=== PATIENT | male | born 1960 | race Caucasian/White ===

== ENCOUNTER 2017-11-29 15:18 | Emergency (ER) | payer OTHER ==
[~2017-11-29] VITALS: Ht 177.8 cm; Wt 86.2 kg
[~2017-11-29 15:18] MED LIST: AMLO10 PO; AMOCLA875 PO; ASPI81CH PO; Adult Low Dose81 MG; DULO60; GLIP5ER PO; Glucotrol Xl5 MG PO; HYDACE5 PO; IBUP400 PO; LEVSOD75 PO; LORA1 PO; LOSHYD100 PO; OXYACE5T PO; Pantoprazole So40 MG PO; Tylenol325 MG PO; VALS80; VENL25 PO
[2017-11-29] MEDS ORDERED: ALBU90OI INH (16:18)
== END 2017-11-29 17:14 | disposition home or self-care (01) ==
LOC: ER 15:18
DX: J40 Bronchitis, not specified as acute or chronic (principal); F12.20 Cannabis dependence, uncomplicated; F17.210 Nicotine dependence, cigarettes, uncomplicated; E11.9 Type 2 diabetes mellitus without complications; I10 Essential (primary) hypertension; Z79.899 Other long term (current) drug therapy; Z79.84 Long term (current) use of oral hypoglycemic drugs; Z79.82 Long term (current) use of aspirin
CPT/HCPCS: 94640; 99283

== ENCOUNTER 2018-05-19 18:15 | Observation (INO) | payer SELFPAY ==
[~2018-05-19] VITALS: Ht 182.9 cm; Wt 82.5 kg
[~2018-05-19 18:15] MED LIST changes: +ALBU90OI INH; +CEPH500 PO; +CHLO25 PO; +FOLI1 PO; +ONDA4ODT PO; +THIA100 PO
[2018-05-19] MEDS ORDERED: VITAMIN B-1100 MG PO (18:33)
[2018-05-19 19:16] LABS: Source, Urine Voided
[2018-05-19 19:23] LABS: Appearance, Urine Clear (Clear); BASOPHILS ABSOLUTE AUTO 0.17 K/mm3 (0.00-0.23); BASOPHILS PERCENT AUTO 2 % (0-2); Bilirubin, Urine Neg (Neg); Blood, Urine Neg (Neg); Color, Urine Yellow (P-Yellow); EOSINOPHILS ABSOLUTE AUTO 0.56 K/mm3 (0.00-0.68); EOSINOPHILS PERCENT AUTO 8 % (0-6); Glucose Qualitative, Urine Neg (Neg); Hematocrit 36.5 % (37.0-53.0); Hemoglobin 11.8 g/dL (13.5-17.5); IMMATURE GRAN PERCENT AUTO 3 % (0-1); Ketones, Urine Neg (Neg); LYMPHOCYTES ABSOLUTE AUTO 2.48 K/mm3 (0.84-5.20); LYMPHOCYTES PERCENT AUTO 34 % (21-46); Leukocyte Esterase, Urine Neg (Neg); MONOCYTES ABSOLUTE AUTO 0.64 K/mm3 (0.16-1.47); MONOCYTES PERCENT AUTO 9 % (4-13); Mean Corpuscular HGB 30.6 pg (26.0-34.0); Mean Corpuscular HGB Conc 32.3 g/dL (31.5-36.5); Mean Platelet Volume 9.3 fL (9.1-12.4); NEUTROPHILS ABSOLUTE AUTO 3.18 K/mm3 (1.96-9.15); NEUTROPHILS PERCENT AUTO 44 % (41-73); NRBC ABSOLUTE 0.04 K/mm3 (0.00-0.02); NRBC Auto 0.6 /100 WBC (0.0-0.2); Nitrite, Urine Neg (Neg); Platelet Count 511 K/mm3 (150-400); Protein, Urine Neg (Neg); RDW Coefficient Variation 14.7 % (11.7-14.2); RDW Standard Deviation 50.2 fL (35.1-46.3); Red Blood Cell Count 3.85 M/mm3 (4.30-5.90); Urobilinogen, Urine NORM (Normal); White Blood Cell Count 7.23 K/mm3 (4.00-11.30)
[2018-05-19 19:30] LABS: Mean Corpuscular Volume 95 fL (80-100)
[2018-05-19 19:37] LABS: U Amphetamine Screen Not Detected; U Barbituate Screen Not Detected; U Benzodiazapine Screen DETECTED; U Buprenorphine Screen Not Detected; U Cannabinoids Screen DETECTED; U Cocaine Screen Not Detected; U Methadone Screen Not Detected; U Methamphetamine Screen Not Detected; U Opiates Screen Not Detected; U Oxycodone Screen Not Detected; U Phencyclidine Screen Not Detected; U Propoxyphene Screen Not Detected
[2018-05-19 19:48] LABS: Alanine Aminotransfer (ALT/SGP 72 U/L (12-78); Albumin, Blood 3.4 g/dL (3.4-5.0); Albumin/Globulin Ratio 0.8 (0.8-1.8); Alk Phos 81 U/L (50-136); Anion Gap 7 mmol/L (6-16); Aspartate Aminotrans (AST/SGOT 63 U/L (12-37); Bilirubin, Total 0.2 mg/dL (0.1-1.0); Blood Urea Nitrogen 11 mg/dL (8-24); Bun/Creatinine Ratio 11.6 (12.0-20.0); CO2, Blood 33 mmol/L (21-32); Calcium, Blood 8.3 mg/dL (8.5-10.1); Chloride, Blood 100 mmol/L (98-108); Creatinine, Blood 0.95 mg/dL (0.60-1.20); Glomerular Filtration Rate >60 (60-); Glucose, Blood 141 mg/dL (70-99); Potassium, Blood 3.9 mmol/L (3.5-5.5); Salicylate 3.8 mg/dL (2.8-20.0); Sodium, Blood 140 mmol/L (136-145); Total Protein, Blood 7.4 g/dL (6.4-8.2)
[2018-05-19 19:59] LABS: Acetaminophen, Random <2.0 ug/mL (10.0-30.0); Ethanol (Alcohol), Blood, Med 355 mg/dL
== END 2018-05-20 10:00 | disposition home or self-care (01) ==
LOC: ER 18:15 → EOR 18:16
PROVIDERS: Emergency Medicine
DX: R45.851 Suicidal ideations (principal); F32.9 Major depressive disorder, single episode, unspecified; F10.129 Alcohol abuse with intoxication, unspecified; E11.9 Type 2 diabetes mellitus without complications; I10 Essential (primary) hypertension; E78.00 Pure hypercholesterolemia, unspecified; Z79.899 Other long term (current) drug therapy; Z79.84 Long term (current) use of oral hypoglycemic drugs; Y90.8 Blood alcohol level of 240 mg/100 ml or more
CPT/HCPCS: 36415; 80053; 81003; 84443; 85025; 99285; G0378; G0480

== ENCOUNTER 2018-11-21 22:31 | Emergency (ER) | payer SELFPAY ==
[~2018-11-21] VITALS: Ht 180.3 cm; Wt 83.9 kg
[~2018-11-21 22:31] MED LIST changes: +LOSA50 PO; +ROSU10TA PO; +VITAMIN B-1100 MG PO
[2018-11-21 22:53] LABS: BASOPHILS ABSOLUTE AUTO 0.15 K/mm3 (0.00-0.23); BASOPHILS PERCENT AUTO 1 % (0-2); EOSINOPHILS ABSOLUTE AUTO 1.03 K/mm3 (0.00-0.68); EOSINOPHILS PERCENT AUTO 8 % (0-6); Hematocrit 37.9 % (37.0-53.0); Hemoglobin 12.1 g/dL (13.5-17.5); IMMATURE GRAN ABSOLUTE AUTO 0.43 K/mm3 (0.00-0.10); IMMATURE GRAN PERCENT AUTO 3 % (0-1); LYMPHOCYTES PERCENT AUTO 14 % (21-46); MONOCYTES ABSOLUTE AUTO 1.31 K/mm3 (0.16-1.47); MONOCYTES PERCENT AUTO 10 % (4-13); Mean Corpuscular HGB 29.2 pg (26.0-34.0); Mean Corpuscular HGB Conc 31.9 g/dL (31.5-36.5); Mean Platelet Volume 9.2 fL (9.1-12.4); NEUTROPHILS PERCENT AUTO 64 % (41-73); NRBC ABSOLUTE 0.05 K/mm3 (0.00-0.02); NRBC Auto 0.4 /100 WBC (0.0-0.2); Platelet Count 415 K/mm3 (150-400); RDW Standard Deviation 46.8 fL (35.1-46.3); Red Blood Cell Count 4.14 M/mm3 (4.30-5.90); White Blood Cell Count 13.12 K/mm3 (4.00-11.30)
[2018-11-21 22:58] LABS: Mean Corpuscular Volume 92 fL (80-100)
[2018-11-21 23:10] LABS: Alanine Aminotransfer (ALT/SGP 76 U/L (12-78); Albumin, Blood 3.4 g/dL (3.4-5.0); Albumin/Globulin Ratio 0.9 (0.8-1.8); Alk Phos 86 U/L (50-136); Anion Gap 6 mmol/L (6-16); Aspartate Aminotrans (AST/SGOT 53 U/L (12-37); Bilirubin, Total 0.3 mg/dL (0.1-1.0); Blood Urea Nitrogen 9 mg/dL (8-24); Bun/Creatinine Ratio 12.9 (12.0-20.0); CO2, Blood 27 mmol/L (21-32); Calcium, Blood 9.2 mg/dL (8.5-10.1); Chloride, Blood 101 mmol/L (98-108); Globulin, Blood 3.9 g/dL (2.2-4.0); Glomerular Filtration Rate >60 (60-); Glucose, Blood 138 mg/dL (70-99); Potassium, Blood 4.3 mmol/L (3.5-5.5); Sodium, Blood 134 mmol/L (136-145); Total Protein, Blood 7.3 g/dL (6.4-8.2)
[2018-11-22] MEDS ORDERED: Prednisone20 MG PO (03:17)
== END 2018-11-22 03:30 | disposition home or self-care (01) ==
LOC: ER 22:31
PROVIDERS: Emergency Medicine
DX: J44.1 Chronic obstructive pulmonary disease with (acute) exacerbation (principal); E11.9 Type 2 diabetes mellitus without complications; I10 Essential (primary) hypertension; E03.9 Hypothyroidism, unspecified; Z79.82 Long term (current) use of aspirin; Z79.899 Other long term (current) drug therapy; Z87.891 Personal history of nicotine dependence
CPT/HCPCS: 36415; 71046; 71260; 80053; 85025; 85379; 93005; 93010; 94640; 96360-59; 96361-59; 99285-25; J7030; Q9967

== ENCOUNTER 2019-02-14 20:05 | Inpatient (IN) | payer OTHER ==
[~2019-02-14] VITALS: Ht 177.8 cm; Wt 97.6 kg
[~2019-02-14 20:05] MED LIST changes: -Adult Low Dose81 MG; -Glucotrol Xl5 MG PO; -LEVSOD75 PO; -LOSA50 PO; -Pantoprazole So40 MG PO; +Prednisone20 MG PO; -ROSU10TA PO
[2019-02-14 20:24] LABS: BASOPHILS PERCENT AUTO 1 % (0-2); EOSINOPHILS ABSOLUTE AUTO 0.22 K/mm3 (0.00-0.68); EOSINOPHILS PERCENT AUTO 2 % (0-6); Hematocrit 39.2 % (37.0-53.0); Hemoglobin 13.3 g/dL (13.5-17.5); IMMATURE GRAN ABSOLUTE AUTO 0.16 K/mm3 (0.00-0.10); IMMATURE GRAN PERCENT AUTO 1 % (0-1); LYMPHOCYTES ABSOLUTE AUTO 1.24 K/mm3 (0.84-5.20); LYMPHOCYTES PERCENT AUTO 9 % (21-46); MONOCYTES ABSOLUTE AUTO 1.05 K/mm3 (0.16-1.47); MONOCYTES PERCENT AUTO 8 % (4-13); Mean Corpuscular HGB 29.6 pg (26.0-34.0); Mean Corpuscular HGB Conc 33.9 g/dL (31.5-36.5); Mean Corpuscular Volume 87 fL (80-100); Mean Platelet Volume 9.7 fL (9.1-12.4); NEUTROPHILS ABSOLUTE AUTO 10.55 K/mm3 (1.96-9.15); NEUTROPHILS PERCENT AUTO 79 % (41-73); Platelet Count 476 K/mm3 (150-400); RDW Coefficient Variation 13.2 % (11.7-14.2); RDW Standard Deviation 42.1 fL (35.1-46.3); White Blood Cell Count 13.32 K/mm3 (4.00-11.30)
[2019-02-14] MEDS ORDERED: VENL150ER PO (20:26)
[2019-02-14 20:39] LABS: D-Dimer, Quantitative 0.29 mg/L FEU (0.00-0.52); International Normalized Ratio 0.99; Prothrombin Time Results 10.5 Sec (9.7-11.5)
[2019-02-14 20:44] LABS: Alanine Aminotransfer (ALT/SGP 119 U/L (12-78); Albumin, Blood 3.5 g/dL (3.4-5.0); Albumin/Globulin Ratio 0.9 (0.8-1.8); Alk Phos 136 U/L (50-136); Anion Gap 17 mmol/L (6-16); Aspartate Aminotrans (AST/SGOT 99 U/L (12-37); Bilirubin, Total 0.3 mg/dL (0.1-1.0); Blood Urea Nitrogen 33 mg/dL (8-24); Bun/Creatinine Ratio 10.7 (12.0-20.0); CO2, Blood 22 mmol/L (21-32); Chloride, Blood 92 mmol/L (98-108); Creatinine, Blood 3.07 mg/dL (0.60-1.20); Globulin, Blood 4.1 g/dL (2.2-4.0); Glomerular Filtration Rate 22 (60-); Glucose, Blood 201 mg/dL (70-99); Potassium, Blood 3.2 mmol/L (3.5-5.5); Sodium, Blood 131 mmol/L (136-145); Total Protein, Blood 7.6 g/dL (6.4-8.2); Troponin I <0.015 ng/mL (0.000-0.040)
[2019-02-14] MEDS ORDERED: LEVSOD75 PO (21:02)
[2019-02-14] MEDS ORDERED: Glucotrol Xl5 MG PO (21:03)
[2019-02-14] MEDS ORDERED: Adult Low Dose81 MG PO (21:03)
[2019-02-14] MEDS ORDERED: Pantoprazole So40 MG PO (21:03)
[2019-02-14] MEDS ORDERED: VENL75ER PO (21:04)
[2019-02-14] MEDS ORDERED: ROSU10TA PO (21:04)
[2019-02-14] MEDS ORDERED: LOSARTAN POTAS100 MG PO (21:05)
[2019-02-14] MEDS ORDERED: AMLO5 PO (21:05)
[2019-02-14] MEDS ORDERED: CHLO25B PO (21:05)
[2019-02-14] MEDS ORDERED: ALBU90OI61 INH (21:08)
[2019-02-15 05:06] LABS: BASOPHILS ABSOLUTE AUTO 0.07 K/mm3 (0.00-0.23); BASOPHILS PERCENT AUTO 1 % (0-2); EOSINOPHILS ABSOLUTE AUTO 0.32 K/mm3 (0.00-0.68); EOSINOPHILS PERCENT AUTO 4 % (0-6); Hematocrit 34.4 % (37.0-53.0); Hemoglobin 11.6 g/dL (13.5-17.5); IMMATURE GRAN ABSOLUTE AUTO 0.12 K/mm3 (0.00-0.10); IMMATURE GRAN PERCENT AUTO 1 % (0-1); LYMPHOCYTES ABSOLUTE AUTO 1.47 K/mm3 (0.84-5.20); LYMPHOCYTES PERCENT AUTO 17 % (21-46); MONOCYTES ABSOLUTE AUTO 0.82 K/mm3 (0.16-1.47); MONOCYTES PERCENT AUTO 9 % (4-13); Mean Corpuscular HGB 28.9 pg (26.0-34.0); Mean Corpuscular HGB Conc 33.7 g/dL (31.5-36.5); Mean Corpuscular Volume 86 fL (80-100); Mean Platelet Volume 9.7 fL (9.1-12.4); NEUTROPHILS ABSOLUTE AUTO 5.96 K/mm3 (1.96-9.15); NEUTROPHILS PERCENT AUTO 68 % (41-73); Platelet Count 341 K/mm3 (150-400); RDW Coefficient Variation 13.5 % (11.7-14.2); Red Blood Cell Count 4.01 M/mm3 (4.30-5.90); White Blood Cell Count 8.76 K/mm3 (4.00-11.30)
[2019-02-15 05:29] LABS: Albumin/Globulin Ratio 0.9 (0.8-1.8); Bilirubin, Total 0.4 mg/dL (0.1-1.0); Bun/Creatinine Ratio 12.4 (12.0-20.0); Calcium, Blood 8.5 mg/dL (8.5-10.1); Creatinine, Blood 2.83 mg/dL (0.60-1.20); Globulin, Blood 3.5 g/dL (2.2-4.0); Potassium, Blood 3.4 mmol/L (3.5-5.5); Total Protein, Blood 6.5 g/dL (6.4-8.2)
--- NOTE | 2019-02-15 05:42 | NUR ---
SHIFT SUMMARY & TRANSFER NOTE PT ARRIVES TO MED FLOOR FROM ED VIA STRETCHER AND AMBULATES SBA TO BED. PT REPORTS DIZZINESS AND WEAKNESS DURING THIS TRANSFER. PT C/O OF EPITAXIS AND SYNCOPE X 2 WEEKS, REPORTING IT OCCURES "SOMETIMES AT RANDOM OR AFTER WALKING." PT REPORTS HE DRINKS 3-4 MIX DRINKS (VODKA AND JUICE) PER DAY. CIWA SCORE 1, PT REPORTS PENN[place]. RELIEVED BY PRN ADVIL. NS RUNNING @ 125 ML/HR, NEW IV SITE PLACED THIS AM. PT IS RESTING IN BED AT THIS TIME, EDUCATED ON THE IMPORTANCE OF USING CALL LT PRIOR TO AMBULATION D/T FALL RISK. PT AGREES AND HAS BEEN COMPLIANT. WILL CONT TO MONITOR AND PROVIDE CARE UNTIL PRESUMED BY ONCOMING RN.
--- NOTE | 2019-02-15 09:55 | NUR ---
ECHOCARDIOGRAM COMPLETED
--- NOTE | 2019-02-15 17:31 | NUR ---
SUMMARY PT RESTING IN BED WATCHING TV, PT HAS BEEN PLEASANT AND COOPERATIVE WITH CARE T/O THE DAY, INDEPENDENT IN THE ROOM, MED PER EMAR FOR ANXIETY RELATED TO ETOH WITHDRAWLS, NO OTHER COMPLAINTS, VSS, NO ACUTE CHANGES, WILL CONT TO MONITOR
[2019-02-16 05:14] LABS: BASOPHILS ABSOLUTE AUTO 0.11 K/mm3 (0.00-0.23); BASOPHILS PERCENT AUTO 2 % (0-2); EOSINOPHILS ABSOLUTE AUTO 0.57 K/mm3 (0.00-0.68); EOSINOPHILS PERCENT AUTO 8 % (0-6); Hematocrit 34.1 % (37.0-53.0); Hemoglobin 11.1 g/dL (13.5-17.5); IMMATURE GRAN ABSOLUTE AUTO 0.12 K/mm3 (0.00-0.10); IMMATURE GRAN PERCENT AUTO 2 % (0-1); LYMPHOCYTES PERCENT AUTO 18 % (21-46); MONOCYTES ABSOLUTE AUTO 0.54 K/mm3 (0.16-1.47); MONOCYTES PERCENT AUTO 7 % (4-13); Mean Corpuscular HGB 29.3 pg (26.0-34.0); Mean Corpuscular HGB Conc 32.6 g/dL (31.5-36.5); Mean Platelet Volume 9.7 fL (9.1-12.4); NEUTROPHILS ABSOLUTE AUTO 4.71 K/mm3 (1.96-9.15); NEUTROPHILS PERCENT AUTO 64 % (41-73); Platelet Count 328 K/mm3 (150-400); RDW Coefficient Variation 13.2 % (11.7-14.2); RDW Standard Deviation 43.4 fL (35.1-46.3); Red Blood Cell Count 3.79 M/mm3 (4.30-5.90); White Blood Cell Count 7.35 K/mm3 (4.00-11.30)
[2019-02-16 05:15] LABS: Mean Corpuscular Volume 90 fL (80-100)
[2019-02-16 05:37] LABS: Albumin, Blood 2.9 g/dL (3.4-5.0); Anion Gap 8 mmol/L (6-16); Blood Urea Nitrogen 27 mg/dL (8-24); Bun/Creatinine Ratio 15.4 (12.0-20.0); CO2, Blood 24 mmol/L (21-32); Calcium, Blood 7.7 mg/dL (8.5-10.1); Chloride, Blood 104 mmol/L (98-108); Creatinine, Blood 1.75 mg/dL (0.60-1.20); Glomerular Filtration Rate 42 (60-); Glucose, Blood 198 mg/dL (70-99); Phosphorus, Blood 2.9 mg/dL (2.5-4.9); Potassium, Blood 3.6 mmol/L (3.5-5.5); Sodium, Blood 136 mmol/L (136-145)
--- NOTE | 2019-02-16 06:16 | NUR ---
SHIFT SUMMARY PT CIWA'S 8 - 10 TONIGHT, MOD P[place], BUE MILD TREMOR, ANXIETY, AND DIAPHORESIS. ADMINISTERED PRN 50 MG LIBRIUM ONCE WITH GOOD RESULTS. PT ALSO REQUESTS TRAMADOL OT FOR NECK PAIN AND [place]ENN[place]. PROVIDES RELIEF. NS CONT TO RUN @ 125 ML/HR. CONT TO MONITOR RENAL FUNCTION, THIS AM LABS SHOW GOOD IMPROVEMENT. CREATININE 1.75, GFR 42, BUN 27. PT RESTING IN BED AT THIS TIME, CALL LT IN REACH. WILL CONT TO MONITOR AND PROVIDE CARE UNTIL PRESUMED BY ONCOMING RN.
--- NOTE | 2019-02-16 17:05 | NUR ---
SUMMARY PT AWAKE IN BED WATCHING TV AND VISITING WITH A FRIEND, PT HAS BEEN PLEASANT AND COOPERATIVE WITH CARE, HAS SLEPT OFF AND ON T/O THE DAY, MED PER EMAR FOR MILD WITHDRAWL SYMPTOMS, PT WITH OCC WHEEZE, ENCOURAGED PT TO USE THE URINAL TO KEEP TRACK OF OUTPUT, VSS, NO ACUTE CHANGES, WILL CONT TO MONITOR
--- NOTE | 2019-02-16 19:53 | NUR ---
PT NOTED TO HAVE AUDIBLE WHEEZES. PT RECIEVING BREATHING TREATMENT AT THIS TIME.
--- NOTE | 2019-02-16 20:30 | NUR ---
POST BREATHING TX PT IS STILL WHEEZY T/O. PT I/Os SHOW PT RECIEVED 4L OF NS YESTERDAY, AND ONLY HAS 4 VOIDS CHARTED. WILL REPORT FINDINGS TO HOSPITALIST.
--- NOTE | 2019-02-16 20:36 | NUR ---
OT 20 MG IV LASIX ORDERED, STOPPED MAINTENANCE FLUIDS PER DR THAO
--- NOTE | 2019-02-17 02:56 | NUR ---
PT WAKES THIS AM WITH WHEEZING T/O, SOB AND DIFFICULTY BREATHING. O2 SATS WNL, PLACED ON 2L VIA NC FOR COMFORT. DR THAO NOTIFIED AND UP TO FLOOR TO ASSESS PT. PT PLACED ON CPAP AND DAILY ORAL PREDISONE ADDED TO EMAR PER DR THAO. PT IS RESTING IN BED AT THIS TIME, CPAP IN PLACE.
--- NOTE | 2019-02-17 05:01 | NUR ---
SHIFT SUMMARY PT c INCREASED WORK OF BREATHING AND AUDIBLE WHEEZES T/O ALL LUNG CORREA TONIGHT. PT NOTED TO BE FLUID OVERLOAD ACCORDING TO I/O'S, OBTAINED ORDER FOR 20 MG IV LASIX ONE TIME DOSE. PT RESPONDED WELL AND VOIDED ALMOST 2L. AT ABOUT 0300 THIS AM, PT WAKES UP PANICKED, WHEEZING, AND STRUGGLING TO BREATHE. RT AND DR THAO CALLED. BREATHING TX DID NOT PROVIDE RELIEF. PT PLACED ON CPAP AND ORAL PREDISONE ADDED TO EMAR PER DR THAO. CONT PULSE OX IN PLACE. PT SCORED AN 8,9,AND 10 FOR CIWAS TONIGHT. POSITIVE FOR TREMORS, ANXIETY, SWEATS, AND PENN[place]. TREATED WITH 1MG ATIVAN IV THAT PROVIDED NO RELIEF, THEN 2 MG IV ATIVAN THAT PROVIDE OPTIMAL RELIEF. PT IS STABLE AT THIS TIME, RESTING IN BED ON RA, NO DIFFICULTY, STILL WHEEZING. CALL LT IN REACH, WILL CONT TO MONITOR AND PROVIDE CARE UNTIL PRESUMED BY ONCOMING RN.
[2019-02-17 05:09] LABS: BASOPHILS ABSOLUTE AUTO 0.11 K/mm3 (0.00-0.23); BASOPHILS PERCENT AUTO 1 % (0-2); EOSINOPHILS ABSOLUTE AUTO 0.52 K/mm3 (0.00-0.68); EOSINOPHILS PERCENT AUTO 6 % (0-6); Hematocrit 34.3 % (37.0-53.0); Hemoglobin 11.2 g/dL (13.5-17.5); IMMATURE GRAN ABSOLUTE AUTO 0.18 K/mm3 (0.00-0.10); IMMATURE GRAN PERCENT AUTO 2 % (0-1); LYMPHOCYTES ABSOLUTE AUTO 0.96 K/mm3 (0.84-5.20); LYMPHOCYTES PERCENT AUTO 11 % (21-46); MONOCYTES ABSOLUTE AUTO 0.61 K/mm3 (0.16-1.47); MONOCYTES PERCENT AUTO 7 % (4-13); Mean Corpuscular HGB 28.7 pg (26.0-34.0); Mean Corpuscular HGB Conc 32.7 g/dL (31.5-36.5); Mean Corpuscular Volume 88 fL (80-100); Mean Platelet Volume 9.4 fL (9.1-12.4); NEUTROPHILS ABSOLUTE AUTO 6.36 K/mm3 (1.96-9.15); NEUTROPHILS PERCENT AUTO 73 % (41-73); Platelet Count 358 K/mm3 (150-400); RDW Coefficient Variation 13.5 % (11.7-14.2); RDW Standard Deviation 43.5 fL (35.1-46.3); White Blood Cell Count 8.74 K/mm3 (4.00-11.30)
[2019-02-17 05:33] LABS: Albumin, Blood 3.2 g/dL (3.4-5.0); Anion Gap 8 mmol/L (6-16); Blood Urea Nitrogen 19 mg/dL (8-24); Bun/Creatinine Ratio 14.2 (12.0-20.0); CO2, Blood 28 mmol/L (21-32); Calcium, Blood 8.2 mg/dL (8.5-10.1); Chloride, Blood 100 mmol/L (98-108); Creatinine, Blood 1.34 mg/dL (0.60-1.20); Glomerular Filtration Rate 58 (60-); Glucose, Blood 248 mg/dL (70-99); Potassium, Blood 3.5 mmol/L (3.5-5.5); Sodium, Blood 136 mmol/L (136-145)
--- NOTE | 2019-02-17 07:43 | NUR ---
PT LYING HF, WITH AUDIBLE WHEEZES, HAVING DIFFICULTY BREATHING. AM PREDNISONE GIVEN EARLY D/T EARLIER EPISODE OF SOB AND WHEEZING. CONTINOUS BIOX ON; 92% ON RA. RT CALLED FOR TX. PT PLACED BACK ON CPAP, WHILE WAITING FOR RT.
--- NOTE | 2019-02-17 13:51 | NUR ---
[address] BROWN CALLED WITH PT RESULT OF 498 BLOOD SUGAR. 18 UNITS GIVEN PER HSS. ASKED TO MONITOR & RECHECK BLOOD SUGAR IN 2 HOURS. WILL CONTINUE TO MONITOR.
--- NOTE | 2019-02-17 14:42 | NUR ---
SHIFT SUMMARY PT UP TO BTHRM TO VOID, DURING SHIFT REPORT. APPEARING SOB WITH EXERTION AND SLIGHTLY UNSTEADY, TRYING TO GET BACK INTO BED. AUDIBLE WHEEZES NOTED. PT ADMITTED FOR ARF; RESOLVED. DEVELOPED SOB WITH INS/EXP WHEEZES DURING THE NIGHT. PT GIVEN LASIX AND STARTED ON PREDNISONE. PT ALSO THEN PLACED ON CPAP AND CONT BIOX. HX OF ALCOHOL ABUSE WITH CIWA PROTOCOLS. ATIVAN GIVEN PRIOR TO START OF SHIFT FOR ANXIETY AND CIWA OF 8. PT HAD DECLINED LIBRIUM, STATING THAT IT DIDN'T WORK VERY WELL. PER REPORT, AT HOME DYING. SISTER LATER CAME IN AND STATED PT GETTING A DIVORCE, CAUSING ANXIETY. PT BECOMING INCREASINGLY WHEEZY AND DYSPNEIC. RT CALLED FOR TX AND PT PLACED ON CPAP WHILE WAITING. BIOX WNL'S ON RA @ 94%. PT SEEMED TO IMPROVE WITH CPAP AND A LITTLE MORE AGAIN WITH RT TX. PT THEN WENT TO SLEEP AFTER BREAKFAST FOR A COUPLE OF HOURS. FAMILY IN WAITING FOR PT TO WAKE AND DR BROWN TO VISIT. CBG'S ELEVATING D/T PREDNISONE. INSULING ADMIN PER EMAR AND PT'S SS CHANGED TO HSS WITH ADDITION OF LANTUS. PT HAS DONE MUCH BETTER THIS AFTERNOON, BREATHING EASIER. RESTING QUIETLY, WATCHING TV. NO S/SX OF DISTRESS NOTED OR REPORTED. PT HAS BEEN UP TO BTHRM INDEPENDENTLY, BUT MISSES URINAL WHEN IN BTHRM, VOIDING ALL OVER THE FLOOR. RM AND BTHRM CLEANED TWICE THIS SHIFT. CALL LT IN REACH, WILL CONTINUE TO MONITOR.
--- NOTE | 2019-02-17 20:10 | NUR ---
ASSUMED CARE OF THE PATIENT, RESTING IN BED, WATCHING TV. BREATHING WNL, CONTINUOUS BIOX ON AND RANGES ARE WNL. DENIED ANY SOB, OR PAIN. STATES HE IS DOING OK, DID MENTION ABOUT ELEVATED BLOOD SUGAR, HAS BEEN EATING SUGAR FREE BUT THEY HAVE OTHER INGREDIENTS THAT CAUSED HIS BLOOD SUGARS TO GO UP. WILL MONITOR AND TREAT PER ORDERS. WILL MONITOR FOR ETOH, DUE TO HISTORY, PATIENT DENIES ANY SYMTPOMS AT THIS TIME, NO CIWA DOCUMENTATION IS ORDERED. ENCOURAGED TO CALL TO GET UP TO THE BATHROOM, CALL LIGHT IN REACH.
[2019-02-18 05:24] LABS: Anion Gap 7 mmol/L (6-16); Blood Urea Nitrogen 21 mg/dL (8-24); Bun/Creatinine Ratio 16.8 (12.0-20.0); CO2, Blood 31 mmol/L (21-32); Calcium, Blood 8.2 mg/dL (8.5-10.1); Chloride, Blood 100 mmol/L (98-108); Creatinine, Blood 1.25 mg/dL (0.60-1.20); Glomerular Filtration Rate >60 (60-); Glucose, Blood 269 mg/dL (70-99); Phosphorus, Blood 1.7 mg/dL (2.5-4.9); Potassium, Blood 3.8 mmol/L (3.5-5.5); Sodium, Blood 138 mmol/L (136-145)
--- NOTE | 2019-02-18 07:18 | NUR ---
SHIFT SUMMARY: QUOC DID WELL LAST NIGHT, HAD NO ACUTE CHANGES. ONLY HAD A SMALL EPISODE OF SOB AFTER GOING TO THE BATHROOM WHICH RT WAS CALLED FOR A BREATHING TREATMENT. CONTINUOUS BIOX CONTINUED TO STAY WNL. NO USE OF BIPAP LAST NIGHT, SLEPT WELL WITH NO PROBLEMS, MEDS WERE GIVEN PER EMAR. NO OTHER CHANGES TO NOTE. WILL REPORT TO DAY SHIFT RN.
--- NOTE | 2019-02-18 16:00 | NUR ---
SHIFT SUMMARY PT DOING MUCH BETTER TODAY. LUNGS T/O NOT NEAR WHEEZY. R UPPER AND LOWER LOBES MORE WHEEZY THAN THE LEFT, BUT MUCH IMPROVED OVER YESTERDAY. PT DENIED SOB TODAY. HAS NOT APPEARED TO BE DYSPNEIC AT ALL. INDEPENDENT IN AND TO BTHRM. UP TO SHOWER TODAY WELL. REQUESTED LIBRIUM FOR ANXIETY/TREMORS X1 THIS AFTERNOON. CBG'S IMPROVED OVER YESTERDAY; PT DID NOT EAT ANY CANDY TODAY, BUT DID RECEIVE AM DOSE OF PREDNISONE. CALL LT IN REACH. WILL MONITOR.
--- NOTE | 2019-02-18 19:20 | NUR ---
ASSUMED CARE OF THE PATIENT, WHO IS WATCHING TV IN THE ROOM. REPORT HE IS A LITTLE ANXIOUS AND DOES NOT KNOW WHY. HE DID MENTION HE WAS WORRIED ABOUT HIS BLOOD SUGARS AND BLOOD PRESURE BEING HIGH. DISCUSSED THE CAUSES OF WHY THESE ARE HIGH, DUE TO PREDNISONE AND HIS KIDNEY FUNCTIONS. THIS SEEMED TO CALM HIM SOME. ENCOURAGE HYDRATION AND DEEP BREATHING. NO SOB NOTED, AND NO CHEST PAIN. CALL LIGHT IN REACH, ASSESSMENT COMPLETED SEE FOR DETAILS.
[2019-02-19 05:44] LABS: Anion Gap 6 mmol/L (6-16); Blood Urea Nitrogen 23 mg/dL (8-24); Bun/Creatinine Ratio 20.5 (12.0-20.0); CO2, Blood 32 mmol/L (21-32); Calcium, Blood 8.5 mg/dL (8.5-10.1); Chloride, Blood 99 mmol/L (98-108); Creatinine, Blood 1.12 mg/dL (0.60-1.20); Glomerular Filtration Rate >60 (60-); Glucose, Blood 186 mg/dL (70-99); Phosphorus, Blood 2.8 mg/dL (2.5-4.9); Potassium, Blood 3.9 mmol/L (3.5-5.5); Sodium, Blood 137 mmol/L (136-145)
[2019-02-19] MEDS ORDERED: ALBU2.5V5 INH (11:52)
[2019-02-19] MEDS ORDERED: AMLO10 PO (11:54)
[2019-02-19] MEDS ORDERED: GUAI600T33 PO (11:55)
[2019-02-19] MEDS ORDERED: INSULANPEN SC (12:00)
[2019-02-19] MEDS ORDERED: Prednisone10 MG PO (12:08)
[2019-02-19] MEDS ORDERED: FLUT1DIS5 INH (12:08)
--- NOTE | 2019-02-19 15:39 | NUR ---
DISCHARGED TO HOME WITH BELONGINGS AND 1 RX AT 1358. HIS SISTER PICKED HIM UP. I SPOKE TO HIS ON THE PHONE. SHE SAID SHE IS VERY COMFORTABLE WITH SUBQ INJECTIONS. HE TELLS ME HE HAS A CBG MACHINE AT HOME ALREADY. I DISCUSSED THAT HIS STEROID DOSE GOES DOWN, HIS BLOOD GLUCOSE LEVELS MAY GO DOWN. HE UNDERSTANDS HE HAS ORDERS FOR A LONG-ACTING INSULIN NIGHTLY AT HOME. HE SEEMED SOMEWHAT CONFUSED THIS AFTERNOON. I DID NOT THINK HE WAS CONFUSED THIS MORNING. NO H/A. NO TREMORS. NO SWEATS. NO RESPIRATORY DISTRESS.
== END 2019-02-19 13:58 | disposition home or self-care (01) | DRG 683 ==
LOC: ER 20:05 → MEDS 20:06 → ER 20:06 → MEDS 20:06 → ENPENDDIS 02-19 11:30 → MEDS 02-19 13:58
PROVIDERS: Emergency Medicine; Family Medicine; ADMIT Hospitalist
DX: N17.9 Acute kidney failure, unspecified (principal); E87.1 Hypo-osmolality and hyponatremia; J44.1 Chronic obstructive pulmonary disease with (acute) exacerbation; E86.0 Dehydration; R55 Syncope and collapse; I10 Essential (primary) hypertension; E87.6 Hypokalemia; F10.10 Alcohol abuse, uncomplicated; R94.5 Abnormal results of liver function studies; E03.9 Hypothyroidism, unspecified; E11.65 Type 2 diabetes mellitus with hyperglycemia; T38.0X5A Adverse effect of glucocorticoids and synthetic analogues, initial encounter; K21.9 Gastro-esophageal reflux disease without esophagitis; D64.9 Anemia, unspecified; E78.5 Hyperlipidemia, unspecified; Z87.891 Personal history of nicotine dependence; Z79.84 Long term (current) use of oral hypoglycemic drugs; Z79.82 Long term (current) use of aspirin; Z79.899 Other long term (current) drug therapy; Z79.52 Long term (current) use of systemic steroids
CPT/HCPCS: 36415; 71046; 76770; 80053; 80069; 82947; 83880; 84484; 85025; 85379; 85610; 93005; 93010; 93306; 94640; 94660; 94760; 94762; 96361; 96374; 99285-25; G0378; J1940; J2060; J7030; J7512

== ENCOUNTER 2020-07-21 23:13 | Emergency (ER) | payer SELFPAY ==
[~2020-07-21] VITALS: Ht 177.8 cm; Wt 81.7 kg
[~2020-07-21 23:13] MED LIST changes: +ALBU2.5V5 INH; +ALBU90OI61 INH; +AMLO5 PO; +Adult Low Dose81 MG PO; +CHLO25B PO; +FLUT1DIS5 INH; +GUAI600T33 PO; +Glucotrol Xl5 MG PO; +INSULANPEN SC; +LEVSOD75 PO; +LOSARTAN POTAS100 MG PO; +Pantoprazole So40 MG PO; +Prednisone10 MG PO; +ROSU10TA PO; +VENL150ER PO; +VENL75ER PO
[2020-07-22] MEDS ORDERED: ALBU90OI INH (00:23)
[2020-07-22] MEDS ORDERED: Prednisone50 MG PO (00:23)
[2020-07-22] MEDS ORDERED: TIOT18 INH (00:23)
== END 2020-07-22 00:28 | disposition home or self-care (01) ==
LOC: ER 23:13
DX: J44.1 Chronic obstructive pulmonary disease with (acute) exacerbation (principal); E78.00 Pure hypercholesterolemia, unspecified; E11.9 Type 2 diabetes mellitus without complications; I10 Essential (primary) hypertension; F17.210 Nicotine dependence, cigarettes, uncomplicated; Z79.899 Other long term (current) drug therapy; Z79.82 Long term (current) use of aspirin; Z79.84 Long term (current) use of oral hypoglycemic drugs
CPT/HCPCS: 71045; 94640; 99283-25; J1100

== ENCOUNTER → 2021-07-05 | Outpatient (CLI) | payer SELFPAY ==
[~2021-07-05] MED LIST changes: +Prednisone50 MG PO; +TIOT18 INH
[2021-07-05 19:37] LABS: Percent Saturation 7.9 % (20.0-50.0)
== END | disposition home or self-care (01) ==
LOC: LAB SHORT 17:51
PROVIDERS: Internal Medicine Hematology & Oncology
DX: D75.839 Thrombocytosis, unspecified (principal)
CPT/HCPCS: 82728; 83540; 83550

== ENCOUNTER → 2022-06-23 | Outpatient (CLI) | payer OTHER ==
[2022-06-23 15:40] LABS: BASOPHILS ABSOLUTE AUTO 0.07 K/mm3 (0.00-0.23); BASOPHILS PERCENT AUTO 1 % (0-2); EOSINOPHILS ABSOLUTE AUTO 0.31 K/mm3 (0.00-0.68); EOSINOPHILS PERCENT AUTO 5 % (0-6); Hematocrit 41.7 % (37.0-53.0); Hemoglobin 14.2 g/dL (13.5-17.5); IMMATURE GRAN ABSOLUTE AUTO 0.02 K/mm3 (0.00-0.10); IMMATURE GRAN PERCENT AUTO 0 % (0-1); LYMPHOCYTES ABSOLUTE AUTO 1.41 K/mm3 (0.84-5.20); LYMPHOCYTES PERCENT AUTO 21 % (21-46); MONOCYTES ABSOLUTE AUTO 0.63 K/mm3 (0.16-1.47); MONOCYTES PERCENT AUTO 9 % (4-13); Mean Corpuscular HGB 32.7 pg (26.0-34.0); Mean Corpuscular HGB Conc 34.1 g/dL (31.5-36.5); Mean Corpuscular Volume 96 fL (80-100); Mean Platelet Volume 9.6 fL (9.1-12.4); NEUTROPHILS ABSOLUTE AUTO 4.43 K/mm3 (1.96-9.15); NEUTROPHILS PERCENT AUTO 65 % (41-73); Platelet Count 588 K/mm3 (150-400); RDW Coefficient Variation 12.6 % (11.7-14.2); RDW Standard Deviation 44.4 fL (35.1-46.3); Red Blood Cell Count 4.34 M/mm3 (4.30-5.90); White Blood Cell Count 6.87 K/mm3 (4.00-11.30)
== END | disposition home or self-care (01) ==
LOC: LAB SHORT 12:43 → LAB 12:43
PROVIDERS: Internal Medicine Hematology & Oncology
DX: D75.839 Thrombocytosis, unspecified (principal)
CPT/HCPCS: 85025

== ENCOUNTER → 2022-09-01 | Outpatient (CLI) | payer OTHER ==
[2022-09-01 19:01] LABS: Percent Saturation 15.3 % (20.0-50.0)
== END | disposition home or self-care (01) ==
LOC: LAB SHORT 15:39 → LAB 15:39
PROVIDERS: Internal Medicine Hematology & Oncology
DX: D50.9 Iron deficiency anemia, unspecified (principal)
CPT/HCPCS: 82728; 83540; 83550

== ENCOUNTER 2023-06-27 06:30 | Day surgery (SDC) | payer MEDICARE, OTHER ==
[~2023-06-27] VITALS: Ht 180.3 cm; Wt 81.6 kg
[2023-06-27] VITALS (13 sets, daily range): BP systolic 108–143; BP diastolic 62–118
[~2023-06-27 06:30] MED LIST changes: +Hydroxyurea500 MG PO; +METF500 PO; +METO25ER PO; +SITA100T2 PO
--- NOTE | 2023-06-27 11:15 | NUR ---
PT BACK TO RECOVERY ROOM. PT ALERT AND ORIENTED, BUT DROWSY. L FEMORAL SITE HAS MILD SWELLING, MANUAL PRESSURE HELD X5 MIN. VSS. DE BEY TO COME IN AND SEE PT AND FEMORAL SITE.
[2023-06-27] MEDS ORDERED: CLOP75 PO (12:09)
--- NOTE | 2023-06-27 12:27 | NUR ---
PLAVIX CALLED IN TO [facility].
--- NOTE | 2023-06-27 12:59 | NUR ---
PT ADJUSTED IN BED AND SAT UP AT 30 DEGREES. SITE SOFT AND NON-TENDER.
--- NOTE | 2023-06-27 13:58 | NUR ---
PT SAT UP FURTHER IN BED. GROIN SITE SOFT AND NON-TENDER. NO BLEEDING NOTED.
--- NOTE | 2023-06-27 15:37 | NUR ---
NO BLEEDING OR HEMATOMA NOTED AFTER PT AMBUALTES TO BR AND GETS DRESSED. PT STEADY ON FEET. IV D/C CATHETER INTACT. PT VERBALIZE D/C INSTRUCTIONS AND TO TAKE PLAVIX DAILY. PT CALLS FAMILY FOR RIDE AND PT WHEELED OUT TO THEIR CAR.
== END 2023-06-27 16:03 | disposition home or self-care (01) ==
LOC: MHTC 06:30
DX: E11.51 Type 2 diabetes mellitus with diabetic peripheral angiopathy without gangrene (principal); E11.42 Type 2 diabetes mellitus with diabetic polyneuropathy; Z79.4 Long term (current) use of insulin; F17.200 Nicotine dependence, unspecified, uncomplicated; I70.211 Atherosclerosis of native arteries of extremities with intermittent claudication, right leg
CPT/HCPCS: 37186; 37226; 37228; 75716; 75774; 76937; 85347; 99152; 99153; A9270; C1725; C1753; C1760; C1769; C1874; C1884; C1887; C1894; C2623; J1644; J2250; J3010; J7030; J7050; Q9967

== ENCOUNTER 2024-01-09 14:57 | Emergency (ER) | payer MEDICARE, OTHER ==
[~2024-01-09] VITALS: Ht 177.8 cm; Wt 83.5 kg
[~2024-01-09 14:57] MED LIST changes: +CLOP75 PO; +Keflex500 MG PO
[2024-01-09 17:31] LABS: BASOPHILS ABSOLUTE AUTO 0.19 K/mm3 (0.00-0.23); BASOPHILS PERCENT AUTO 2 % (0-2); EOSINOPHILS ABSOLUTE AUTO 0.69 K/mm3 (0.00-0.68); EOSINOPHILS PERCENT AUTO 6 % (0-6); Hematocrit 41.6 % (37.0-53.0); Hemoglobin 13.8 g/dL (13.5-17.5); IMMATURE GRAN ABSOLUTE AUTO 0.12 K/mm3 (0.00-0.10); IMMATURE GRAN PERCENT AUTO 1 % (0-1); LYMPHOCYTES ABSOLUTE AUTO 0.98 K/mm3 (0.84-5.20); LYMPHOCYTES PERCENT AUTO 8 % (21-46); MONOCYTES PERCENT AUTO 8 % (4-13); Mean Corpuscular HGB Conc 33.2 g/dL (31.5-36.5); Mean Corpuscular Volume 87 fL (80-100); Mean Platelet Volume 9.7 fL (9.1-12.4); NEUTROPHILS ABSOLUTE AUTO 9.01 K/mm3 (1.96-9.15); NEUTROPHILS PERCENT AUTO 76 % (41-73); RDW Coefficient Variation 15.8 % (11.7-14.2); RDW Standard Deviation 49.8 fL (35.1-46.3); Red Blood Cell Count 4.76 M/mm3 (4.30-5.90); White Blood Cell Count 11.89 K/mm3 (4.00-11.30)
[2024-01-09 17:43] LABS: Platelet Count 1033 K/mm3 (150-400)
[2024-01-09 17:46] LABS: Albumin, Blood 3.7 g/dL (3.4-5.0); Albumin/Globulin Ratio 0.9 (0.8-1.8); Bilirubin, Total 0.5 mg/dL (0.1-1.0); Bun/Creatinine Ratio 16.8 (12.0-20.0); Calcium, Blood 9.1 mg/dL (8.5-10.1); Creatinine, Blood 0.78 mg/dL (0.60-1.20); Globulin, Blood 3.9 g/dL (2.2-4.0); Potassium, Blood 5.3 mmol/L (3.5-5.5); Total Protein, Blood 7.6 g/dL (6.4-8.2)
[2024-01-09 23:52] VITALS: BP 152/66
== END 2024-01-09 23:57 | disposition home or self-care (01) ==
LOC: ER 14:57
PROVIDERS: Physician Assistant
DX: I82.531 Chronic embolism and thrombosis of right popliteal vein (principal); S80.11XA Contusion of right lower leg, initial encounter; X58.XXXA Exposure to other specified factors, initial encounter; E11.9 Type 2 diabetes mellitus without complications; I10 Essential (primary) hypertension; E78.00 Pure hypercholesterolemia, unspecified; Z79.84 Long term (current) use of oral hypoglycemic drugs; Z79.82 Long term (current) use of aspirin; Z79.890 Hormone replacement therapy; Z79.899 Other long term (current) drug therapy
CPT/HCPCS: 36415; 73701; 80053; 82550; 85025; 93971; 99284-25; Q9967

== ENCOUNTER 2024-01-15 11:42 | Inpatient (IN) | payer MEDICARE, OTHER ==
[~2024-01-15] VITALS: Ht 180.3 cm; Wt 83.5 kg
[2024-01-15] MEDS ORDERED: Ampicillin Sod/Sulbactam Sod 3 GM in NS 100 ML IV ONE (12:05)
[2024-01-15 12:16] LABS: BASOPHILS ABSOLUTE AUTO 0.14 K/mm3 (0.00-0.23); BASOPHILS PERCENT AUTO 2 % (0-2); EOSINOPHILS ABSOLUTE AUTO 0.64 K/mm3 (0.00-0.68); EOSINOPHILS PERCENT AUTO 7 % (0-6); Hematocrit 37.3 % (37.0-53.0); Hemoglobin 12.3 g/dL (13.5-17.5); IMMATURE GRAN PERCENT AUTO 1 % (0-1); LYMPHOCYTES PERCENT AUTO 11 % (21-46); MONOCYTES ABSOLUTE AUTO 0.88 K/mm3 (0.16-1.47); MONOCYTES PERCENT AUTO 9 % (4-13); Mean Corpuscular Volume 85 fL (80-100); Mean Platelet Volume 9.3 fL (9.1-12.4); NEUTROPHILS ABSOLUTE AUTO 6.65 K/mm3 (1.96-9.15); NEUTROPHILS PERCENT AUTO 71 % (41-73); RDW Coefficient Variation 15.3 % (11.7-14.2); RDW Standard Deviation 47.2 fL (35.1-46.3); White Blood Cell Count 9.41 K/mm3 (4.00-11.30)
[2024-01-15 12:20] LABS: Platelet Count 1088 K/mm3 (150-400)
[2024-01-15 12:35] LABS: Albumin, Blood 3.5 g/dL (3.4-5.0); Bilirubin, Total 0.3 mg/dL (0.1-1.0); Bun/Creatinine Ratio 27.1 (12.0-20.0); Calcium, Blood 8.8 mg/dL (8.5-10.1); Creatinine, Blood 0.7 mg/dL (0.60-1.20); Globulin, Blood 3.5 g/dL (2.2-4.0); Potassium, Blood 4.7 mmol/L (3.5-5.5)
[2024-01-15] MEDS ORDERED: Acetaminophen 325 MG TABLET PO PRN (15:15)
[2024-01-15] MEDS ORDERED: Piperacillin/Tazobactam Sod 3.375 GM in NS 100 ML IV ONE (15:20)
[2024-01-15] MEDS ORDERED: Clindamycin 900mg in D5W 50ML 50 ML IV SCH (16:00)
[2024-01-15] MEDS ORDERED: Insulin Human Lispro 100 Units/ML 3ML Syringe SC SCH (16:30)
[2024-01-15] MEDS ORDERED: OxyCODONE 5 mg/Acetamin 325 mg TABLET PO PRN (16:35)
[2024-01-15] MEDS ORDERED: FentaNYL Citrate 50 MCG/ML 2 ML Injection IV PRN (16:35)
[2024-01-15] MEDS ORDERED: Vancomycin HCL 2,000 MG in NS 500 ML IV SCH (17:00)
--- NOTE | 2024-01-15 18:23 | NUR ---
SHIFT SUMMARY PATIENT ARRIVED TO UNIT AT 1700. WOUND TO R CALF OPEN TO AIR, EDEMETOUS AND RED. PVL WAS COMPLETED AFTER ARRIVAL TO THIS UNIT AND PRELIMINARY VERBAL REPORT WAS GIVEN TO THIS RN. ATTENDING WAS CALLED TO INFORM THAT PRELIMINARY RESULTS FOUND THAT THE LINE REPAIRER TOWER IS OCCLUDED, BUT VEINS ARE PATENT. ORTHOPEDIC CONSULT WAS CALLED IN FOR PATIENT TO BE SEEN. IV ANTIBIOTICS ARE RUNNING PER MAR. PATIENT COMPLAINING OF PAIN TO RLE, PERCOCET GIVEN PER MAR WAS EFFECTIVE. NO OTHER CONCERNS AT THIS TIME.
[2024-01-15 19:20] VITALS: BP 139/59
[2024-01-15] MEDS ORDERED: NS 250 ML IV PRN (23:10)
[2024-01-16] MEDS ORDERED: Piperacillin/Tazobactam Sod 3.375 GM in NS 100 ML IV SCH
[2024-01-16] MEDS ORDERED: NS 100 ML IV ONE (00:51)
--- NOTE | 2024-01-16 03:20 | NUR ---
SHIFT SUMMARY PT.IS A&O X4, COOP WITH CARE, AND ABLE TO MAKE HIS NEEDS KNOWN. PT. IS NPO DURING THIS SHIFT. PT.C/O 5/10WORST PAIN TO RLE, MEDICATED X1 ORDERED (SEE EMAR.) RLE ELEVATED WITH PILLOWS, NO CHANGES NOTED DURING THIS SHIFT ON THE MARKED SURFACE AREA. PT.DENIES CHILLS, N/V. PT. IS AFEBRILE. IV ABX'S INFUSED ORDERED. BED AT THE LOWEST POSITION, CALL LIGHT IN REACH. WILL HANDOFF TO THE INCOMING SHIFT NURSE.
[2024-01-16] MEDS ORDERED: Levothyroxine Sodium 0.075 MG Tab PO SCH (06:00)
[2024-01-16 06:11] LABS: Hematocrit 38.5 % (37.0-53.0); Hemoglobin 12.6 g/dL (13.5-17.5); Mean Corpuscular HGB 28.8 pg (26.0-34.0); Mean Corpuscular HGB Conc 32.7 g/dL (31.5-36.5); Mean Corpuscular Volume 88 fL (80-100); Mean Platelet Volume 9.7 fL (9.1-12.4); RDW Coefficient Variation 15.4 % (11.7-14.2); Red Blood Cell Count 4.38 M/mm3 (4.30-5.90); White Blood Cell Count 8.57 K/mm3 (4.00-11.30)
[2024-01-16 06:31] LABS: Bun/Creatinine Ratio 18.6 (12.0-20.0); Calcium, Blood 8.9 mg/dL (8.5-10.1); Creatinine, Blood 0.86 mg/dL (0.60-1.20); Potassium, Blood 4.6 mmol/L (3.5-5.5)
[2024-01-16 07:10] LABS: Platelet Count 1123 K/mm3 (150-400)
[2024-01-16 08:21] VITALS: BP 147/65
--- NOTE | 2024-01-16 08:31 | NUR ---
CALL FROM LAB: CRITICAL PLATELET COUNT OF [id number]. PRIMARY RN NOTIFIED. PROVIDER ALREADY AWARE PT CAME IN WITH CRITICAL VALUE.
--- NOTE | 2024-01-16 08:34 | NUR ---
CALL TO ENSURE PT'S CLOPIDOGREL AND ASA HELD TODAY.
[2024-01-16] MEDS ORDERED: HYDROXYurea 500 MG Cap PO SCH (09:00)
[2024-01-16] MEDS ORDERED: Clopidogrel Bisulfate 75 MG Tab PO SCH (09:00)
[2024-01-16] MEDS ORDERED: Aspirin 81 MG Chew PO SCH (09:00)
[2024-01-16] MEDS ORDERED: Metoprolol Succinate 25 MG TABCR PO SCH (09:00)
[2024-01-16] MEDS ORDERED: AmLODIPine Besylate 5 MG Tab PO SCH (09:00)
[2024-01-16] MEDS ORDERED: Rosuvastatin Calcium 10 MG Tab PO SCH (09:00)
[2024-01-16] MEDS ORDERED: Vancomycin HCL 1,500 MG in NS 250 ML IV SCH (09:00)
[2024-01-16 15:49] VITALS: BP 145/72
--- NOTE | 2024-01-16 18:21 | NUR ---
SHIFT SUMMARY PT A&OX4, VSS, AMB W/ ASSIST, TOLERATING PO, VOIDING, AND PAIN MANAGED PER EMAR. PT PLANNED I&D THIS SHIFT WAS CANCELLED. POSSIBLE I&D TOMORROW. NO ACUTE CHANGES. CALL LIGHT WITHIN REACH AND PT ABLE TO MAKE NEEDS KNOWN.
[2024-01-16] MEDS ORDERED: Lactobacil 2-S.Thermo-Bifido 1 1 Cap PO SCH (21:00)
[2024-01-17 03:36] VITALS: BP 151/62
--- NOTE | 2024-01-17 04:19 | NUR ---
SHIFT SUMMARY PT.IS A&O X4, ABLE TO MAKE HIS NEEDS KNOWN, AND COOP WITH CARE. PT.C/O 01/22WORST RLE PAIN, MEDICATED ORDERED X1 DURING THIS SHIFT (SEE EMAR.) RLE ELEVATED WITH PILLOWS, NO CHANGES NOTED ON RLE AND THE MARKED AREA. AFEBRILE. IV ABX INFUSED ORDERED. NO ACUTE EVENTS DURING THIS SHIFT, WILL HANDOFF TO THE INCOMING SHIFT NURSE.CALL LIGHT IN REACH.
--- NOTE | 2024-01-17 06:39 | NUR ---
PT.WOULD LIKE TO D/C THIS MORNING SOON POSSIBLE. PT STATED"IT IS MY KID'S FIRST January."
[2024-01-17 07:08] VITALS: BP 164/62
[2024-01-17] MEDS ORDERED: HydrALAZINE HCl 20 MG / ML 1ML Vial IV PRN (07:50)
[2024-01-17 08:14] LABS: BASOPHILS ABSOLUTE AUTO 0.17 K/mm3 (0.00-0.23); BASOPHILS PERCENT AUTO 1 % (0-2); EOSINOPHILS ABSOLUTE AUTO 0.79 K/mm3 (0.00-0.68); EOSINOPHILS PERCENT AUTO 6 % (0-6); Hematocrit 37.6 % (37.0-53.0); Hemoglobin 12.2 g/dL (13.5-17.5); IMMATURE GRAN ABSOLUTE AUTO 0.08 K/mm3 (0.00-0.10); IMMATURE GRAN PERCENT AUTO 1 % (0-1); LYMPHOCYTES ABSOLUTE AUTO 0.93 K/mm3 (0.84-5.20); LYMPHOCYTES PERCENT AUTO 7 % (21-46); MONOCYTES ABSOLUTE AUTO 1.03 K/mm3 (0.16-1.47); MONOCYTES PERCENT AUTO 8 % (4-13); Mean Corpuscular HGB 28.6 pg (26.0-34.0); Mean Corpuscular HGB Conc 32.4 g/dL (31.5-36.5); Mean Corpuscular Volume 88 fL (80-100); Mean Platelet Volume 9.6 fL (9.1-12.4); NEUTROPHILS ABSOLUTE AUTO 9.77 K/mm3 (1.96-9.15); NEUTROPHILS PERCENT AUTO 77 % (41-73); NRBC ABSOLUTE 0.02 K/mm3 (0.00-0.02); NRBC Auto 0.2 /100 WBC (0.0-0.2); RDW Coefficient Variation 15.7 % (11.7-14.2); RDW Standard Deviation 50.4 fL (35.1-46.3); Red Blood Cell Count 4.27 M/mm3 (4.30-5.90); White Blood Cell Count 12.77 K/mm3 (4.00-11.30)
[2024-01-17 08:22] LABS: Platelet Count 1074 K/mm3 (150-400)
[2024-01-17 08:31] LABS: Bun/Creatinine Ratio 13.6 (12.0-20.0); Calcium, Blood 8.8 mg/dL (8.5-10.1); Creatinine, Blood 0.89 mg/dL (0.60-1.20); Potassium, Blood 4.5 mmol/L (3.5-5.5)
[2024-01-17 14:34] VITALS: BP 134/62
--- NOTE | 2024-01-17 17:30 | NUR ---
SHIFT SUMMARY ROUNDED ON PT THIS AM, NO INDICATION FOR PLAN OF I&D PROCEDURE. PT C/O PAIN X1 AND MEDICATED PER EMAR. NO ACUTE CHANGES THIS SHIFT. CALL LIGHT WITHIN REACH AND PT ABLE TO MAKE NEEDS KNOWN.
[2024-01-17 17:36] LABS: CK TOTAL 102 U/L (39-308); CK-BB 0 % (0-0); CK-MACRO TYPE I 0 % (0-0); CK-MACRO TYPE II 0 % (0-0); CK-MB 0 % (0-4); CK-MM 100 % (96-100)
[2024-01-17 19:45] VITALS: BP 152/67
--- NOTE | 2024-01-18 03:57 | NUR ---
SHIFT SUMMARY ADMITTED FOR CELLULITIS/HEMATOMA OF RLE. FULL CODE. IV ANTIB RX ARE SCHEDULED. PLAN IS FOR OUTPT WOUND CARE WHEN READY FOR DC. NO SURGICAL INTERVENTION IS PLANNED. DR. WEST IS ORTHO CONSULT. HE IS ON RA, 1 ASSIST W/FWW - BRP. HE IS A&O X4. PAIM MEDICATION GIVEN ONCE THIS SHIFT. ADA DIET, ACHS CBG'S - MEDIUM SS.
[2024-01-18 04:42] VITALS: BP 146/69
[2024-01-18 05:26] LABS: Hemoglobin 12.5 g/dL (13.5-17.5); Mean Corpuscular HGB Conc 32.1 g/dL (31.5-36.5); Mean Corpuscular Volume 87 fL (80-100); Mean Platelet Volume 9.3 fL (9.1-12.4); RDW Coefficient Variation 15.6 % (11.7-14.2); RDW Standard Deviation 49.7 fL (35.1-46.3); Red Blood Cell Count 4.47 M/mm3 (4.30-5.90)
[2024-01-18 05:42] LABS: Platelet Count 1150 K/mm3 (150-400)
[2024-01-18 05:47] LABS: Albumin, Blood 3.2 g/dL (3.4-5.0); Albumin/Globulin Ratio 0.8 (0.8-1.8); Bilirubin, Total 0.3 mg/dL (0.1-1.0); Bun/Creatinine Ratio 15.9 (12.0-20.0); Calcium, Blood 8.9 mg/dL (8.5-10.1); Creatinine, Blood 0.95 mg/dL (0.60-1.20); Globulin, Blood 3.8 g/dL (2.2-4.0); Potassium, Blood 4.4 mmol/L (3.5-5.5)
[2024-01-18 07:17] VITALS: BP 122/60
[2024-01-18 15:42] VITALS: BP 151/65
--- NOTE | 2024-01-18 16:35 | NUR ---
PT IS A/OX4, PLEASANT AND COOPERATIVE. THE PT IS UP IND IN HIS ROOM. THE PT WAS UP AND SHOWERED TODAY. A WOUND DRESSING WAS PLACED OVER THE PTS RIGHT LEG WOUND HE REQUESTED DUE TO SOME DRAINAGE FROM THE WOUND. THE PT WAS MEDICATED FOR PAIN X1 SO FAR THIS SHIFT. THE PT WAS UP AND AMBULATED OUT IN THE [place] WITH A FAMILY MEMBER THIS AFTERNOON. CALL LIGHT IN REACH. BED IN THE LOW POSITION
[2024-01-18 19:54] VITALS: BP 161/63
[2024-01-19 03:27] VITALS: BP 146/73
--- NOTE | 2024-01-19 03:59 | NUR ---
SHIFT SUMMARY ADMITTED FOR CELLULITIS/HEMATOMA OF RLE. FULL CODE. PLAN IS FOR IV ANTIB RX, FOLLOW UP OUTPATIENT WOUND CARE. ADA DIET, ACHS CBG'S - MED SS. DR. WEST IS ORTHO CONSULT, NO SURGICAL INTERVENTION PLANNED. ON RA, INDEPENDENT, A&O X4. PAIN MEDICATION GIVEN TWICE THIS SHIFT. HX OF THROMBOCYTHEMIA, MONITORING LABS. HE DID AMBULATE INDEPENDENTLY IN THE HALLS THIS SHIFT, WELL TOLERATED.
[2024-01-19 06:13] LABS: Hematocrit 39.2 % (37.0-53.0); Hemoglobin 12.7 g/dL (13.5-17.5); Mean Corpuscular HGB 28.3 pg (26.0-34.0); Mean Corpuscular HGB Conc 32.4 g/dL (31.5-36.5); Mean Corpuscular Volume 88 fL (80-100); Mean Platelet Volume 9.4 fL (9.1-12.4); RDW Coefficient Variation 15.3 % (11.7-14.2); RDW Standard Deviation 48.6 fL (35.1-46.3); Red Blood Cell Count 4.48 M/mm3 (4.30-5.90); White Blood Cell Count 9.56 K/mm3 (4.00-11.30)
[2024-01-19 06:25] LABS: Platelet Count 1103 K/mm3 (150-400)
[2024-01-19 06:43] LABS: Bun/Creatinine Ratio 14.5 (12.0-20.0); Calcium, Blood 9.2 mg/dL (8.5-10.1); Creatinine, Blood 0.96 mg/dL (0.60-1.20); Potassium, Blood 4.2 mmol/L (3.5-5.5)
[2024-01-19 07:21] VITALS: BP 157/70
[2024-01-19 15:49] VITALS: BP 132/49
--- NOTE | 2024-01-19 18:06 | NUR ---
SHIFT SUMMARY PATIENT A/OX4. COMPLAINED OF PAIN TO RLE THIS SHIFT, GIVEN PERCOCET X2 THIS SHIFT. IV ABX INFUSED PER SEP. PATIENT INDEPENDENT WITH AMBULATION IN HALLWAY TODAY. PLAN TO DISCHARGE TOMORROW ON ORAL ABX. NO OTHER CONCERNS AT THIS TIME.
[2024-01-19 18:58] VITALS: BP 135/70
--- NOTE | 2024-01-20 04:03 | NUR ---
SHIFT SUMMARY: Pt is admitted for hematoma of the right lower leg and is a full code. Is alert and able to make needs known. ADLs have been independent during shift. Was given PRN pain management when requested.
[2024-01-20 04:29] VITALS: BP 162/67
[2024-01-20 06:06] LABS: BASOPHILS ABSOLUTE AUTO 0.18 K/mm3 (0.00-0.23); BASOPHILS PERCENT AUTO 2 % (0-2); EOSINOPHILS ABSOLUTE AUTO 0.75 K/mm3 (0.00-0.68); EOSINOPHILS PERCENT AUTO 8 % (0-6); Hematocrit 40.1 % (37.0-53.0); Hemoglobin 12.9 g/dL (13.5-17.5); IMMATURE GRAN ABSOLUTE AUTO 0.07 K/mm3 (0.00-0.10); IMMATURE GRAN PERCENT AUTO 1 % (0-1); LYMPHOCYTES ABSOLUTE AUTO 1.16 K/mm3 (0.84-5.20); LYMPHOCYTES PERCENT AUTO 13 % (21-46); MONOCYTES ABSOLUTE AUTO 0.74 K/mm3 (0.16-1.47); MONOCYTES PERCENT AUTO 8 % (4-13); Mean Corpuscular HGB Conc 32.2 g/dL (31.5-36.5); Mean Corpuscular Volume 87 fL (80-100); Mean Platelet Volume 9.2 fL (9.1-12.4); NEUTROPHILS ABSOLUTE AUTO 6.15 K/mm3 (1.96-9.15); NEUTROPHILS PERCENT AUTO 68 % (41-73); RDW Coefficient Variation 15.3 % (11.7-14.2); RDW Standard Deviation 48.4 fL (35.1-46.3); Red Blood Cell Count 4.61 M/mm3 (4.30-5.90); White Blood Cell Count 9.05 K/mm3 (4.00-11.30)
[2024-01-20 06:36] LABS: Albumin, Blood 3.2 g/dL (3.4-5.0); Albumin/Globulin Ratio 0.9 (0.8-1.8); Bilirubin, Total 0.3 mg/dL (0.1-1.0); Bun/Creatinine Ratio 17.5 (12.0-20.0); Calcium, Blood 8.7 mg/dL (8.5-10.1); Creatinine, Blood 0.91 mg/dL (0.60-1.20); Globulin, Blood 3.5 g/dL (2.2-4.0); Potassium, Blood 4.1 mmol/L (3.5-5.5); Total Protein, Blood 6.7 g/dL (6.4-8.2)
[2024-01-20 06:59] LABS: Platelet Count 1122 K/mm3 (150-400)
[2024-01-20 07:47] VITALS: BP 144/63
[2024-01-20] MEDS ORDERED: DOXY100 PO (12:17)
[2024-01-20] MEDS ORDERED: Percocet 5-3251 EACH PO (12:17)
--- NOTE | 2024-01-20 13:18 | NUR ---
report received verified a/o wants to go home vss wound care done with MD at bedside. discharge orders given and implemented. iv dced pt dced home
== END 2024-01-20 13:22 | disposition home or self-care (01) | DRG 872 ==
LOC: ER 11:42 → MEDS 11:43 → ENPENDDIS 01-20 12:09 → MEDS 01-20 13:22
PROVIDERS: Emergency Medicine; Hospitalist; ADMIT Internal Medicine
DX: A41.9 Sepsis, unspecified organism (principal); L03.115 Cellulitis of right lower limb; L97.819 Non-pressure chronic ulcer of other part of right lower leg with unspecified severity; I82.531 Chronic embolism and thrombosis of right popliteal vein; Z79.01 Long term (current) use of anticoagulants; E11.51 Type 2 diabetes mellitus with diabetic peripheral angiopathy without gangrene; E78.5 Hyperlipidemia, unspecified; E11.622 Type 2 diabetes mellitus with other skin ulcer; I10 Essential (primary) hypertension; E03.9 Hypothyroidism, unspecified; F17.210 Nicotine dependence, cigarettes, uncomplicated; Z79.890 Hormone replacement therapy; D47.3 Essential (hemorrhagic) thrombocythemia; S80.11XA Contusion of right lower leg, initial encounter; W18.30XA Fall on same level, unspecified, initial encounter; Z79.84 Long term (current) use of oral hypoglycemic drugs; Z79.82 Long term (current) use of aspirin; Z79.4 Long term (current) use of insulin; Z79.899 Other long term (current) drug therapy; Z79.02 Long term (current) use of antithrombotics/antiplatelets; Z90.49 Acquired absence of other specified parts of digestive tract
CPT/HCPCS: 36415; 73701; 80048; 80053; 82550; 82552; 82947; 83605; 85025; 85027; 85651; 86140; 87040; 93005; 93010; 93926; 96365; 96366; 96367; 96375; 96376; 99284-25; A9270; G0378; J0295; J2543; J3370; J7040; J7050; Q9967

== ENCOUNTER → 2024-05-06 | Outpatient (CLI) | payer MEDICARE, OTHER ==
[~2024-05-06] MED LIST changes: +DOXY100 PO; +Percocet 5-3251 EACH PO
[2024-05-06 16:30] LABS: BASOPHILS ABSOLUTE AUTO 0.04 K/mm3 (0.00-0.23); BASOPHILS PERCENT AUTO 1 % (0-2); EOSINOPHILS ABSOLUTE AUTO 0.19 K/mm3 (0.00-0.68); EOSINOPHILS PERCENT AUTO 3 % (0-6); Hematocrit 39.7 % (37.0-53.0); Hemoglobin 13.7 g/dL (13.5-17.5); IMMATURE GRAN ABSOLUTE AUTO 0.02 K/mm3 (0.00-0.10); IMMATURE GRAN PERCENT AUTO 0 % (0-1); LYMPHOCYTES ABSOLUTE AUTO 0.69 K/mm3 (0.84-5.20); LYMPHOCYTES PERCENT AUTO 11 % (21-46); MONOCYTES ABSOLUTE AUTO 0.49 K/mm3 (0.16-1.47); MONOCYTES PERCENT AUTO 8 % (4-13); Mean Corpuscular HGB 31.2 pg (26.0-34.0); Mean Corpuscular HGB Conc 34.5 g/dL (31.5-36.5); Mean Corpuscular Volume 90 fL (80-100); Mean Platelet Volume 9.6 fL (9.1-12.4); NEUTROPHILS ABSOLUTE AUTO 4.99 K/mm3 (1.96-9.15); NEUTROPHILS PERCENT AUTO 78 % (41-73); Platelet Count 682 K/mm3 (150-400); RDW Coefficient Variation 17.2 % (11.7-14.2); RDW Standard Deviation 56.4 fL (35.1-46.3); Red Blood Cell Count 4.39 M/mm3 (4.30-5.90); White Blood Cell Count 6.42 K/mm3 (4.00-11.30)
== END ==
LOC: LAB 15:20 → LAB SHORT 15:20
PROVIDERS: Internal Medicine Hematology & Oncology
DX: D47.1 Chronic myeloproliferative disease (principal)
CPT/HCPCS: 85025

== ENCOUNTER 2024-10-02 05:39 | Inpatient (IN) | payer MEDICARE, OTHER ==
[~2024-10-02] VITALS: Ht 177.8 cm; Wt 78.7 kg
[2024-10-02 07:02] LABS: Influenza A, PCR NEGATIVE (NEGATIVE); Influenza B, PCR NEGATIVE (NEGATIVE); Resp Syncytial Virus, PCR NEGATIVE (NEGATIVE); SARS-Cov-2 (COVID-19) PCR, MMC NEGATIVE (NEGATIVE)
[2024-10-02 07:28] LABS: Hematocrit 27.9 % (37.0-53.0); Hemoglobin 10.1 g/dL (13.5-17.5); Mean Corpuscular HGB 32.4 pg (26.0-34.0); Mean Corpuscular HGB Conc 36.2 g/dL (31.5-36.5); Mean Corpuscular Volume 89 fL (80-100); Mean Platelet Volume 8.8 fL (9.1-12.4); RDW Coefficient Variation 12.1 % (11.7-14.2); RDW Standard Deviation 39.2 fL (35.1-46.3); Red Blood Cell Count 3.12 M/mm3 (4.30-5.90); White Blood Cell Count 1.66 K/mm3 (4.00-11.30)
[2024-10-02 07:35] LABS: Source, Urine Clean Catch
[2024-10-02 07:42] LABS: Albumin, Blood 3.6 g/dL (3.4-5.0); Albumin/Globulin Ratio 1.3 (0.8-1.8); Bilirubin, Direct 0.1 mg/dL (0.0-0.3); Bilirubin, Indirect 0.3 mg/dL (0.1-0.7); Bilirubin, Total 0.4 mg/dL (0.1-1.0); Bun/Creatinine Ratio 15.2 (12.0-20.0); Calcium, Blood 9.1 mg/dL (8.5-10.1); Creatinine, Blood 0.86 mg/dL (0.60-1.20); Globulin, Blood 2.8 g/dL (2.2-4.0); Potassium, Blood 4.1 mmol/L (3.5-5.5); Total Protein, Blood 6.4 g/dL (6.4-8.2)
[2024-10-02 07:49] LABS: Platelet Count 9 K/mm3 (150-400)
[2024-10-02 07:55] LABS: Appearance, Urine Clear (Clear); Bilirubin, Urine Neg (Neg); Blood, Urine Neg (Neg); Color, Urine Yellow (P-Yellow); Glucose Qualitative, Urine Neg (Neg); Ketones, Urine Neg (Neg); Leukocyte Esterase, Urine Neg (Neg); Nitrite, Urine Neg (Neg); Protein, Urine 2+ (Neg); Urobilinogen, Urine NORM (Normal)
[2024-10-02 08:14] LABS: Red Blood Cells, Urine 0-2 /hpf (0-2); Squamous Epithelial Cells Rare /hpf (Few); White Blood Cells, Urine 0-2 /hpf (0-5)
[2024-10-02 08:15] LABS: Amorphous Light (0-Heavy); Bacteria Rare /hpf; Mucus Light (0-Heavy)
[2024-10-02 08:16] LABS: Hyaline Casts 0-2 /lpf (0-2)
[2024-10-02] MEDS ORDERED: CefTRIAXone Sodium 1,000 MG in NS 100 ML IV ONE (08:25)
[2024-10-02] MEDS ORDERED: FentaNYL Citrate 50 MCG/ML 2 ML Injection IV ONE (08:30)
[2024-10-02] MEDS ORDERED: FLU VACC TS2024-25(6MOS UP)/PF 45 MCG/0.5 ML SYRINGE IM PRN (09:10)
[2024-10-02] MEDS ORDERED: NS 1,000 ML IV SCH (09:10)
[2024-10-02 09:34] LABS: BAND PERCENT MAN 6 % (0-8); BASOPHILS ABSOLUTE MAN 0.03 K/mm3 (0.00-0.23); BASOPHILS PERCENT MAN 2 % (0-2); BLASTS PERCENT MAN 2 % (0-0); EOSINOPHILS PERCENT MAN 0 % (0-6); LYMPHOCYTES % ATYPICAL MANUAL 4 % (0-0); LYMPHOCYTES ABSOLUTE MAN 0.56 K/mm3 (0.84-5.20); LYMPHOCYTES PERCENT MAN 30 % (21-46); MONOCYTES ABSOLUTE MAN 0.29 K/mm3 (0.16-1.47); MONOCYTES PERCENT MAN 18 % (4-13); MYELOCYTE ABSOLUTE MAN 0.13 K/mm3 (0.00-0.00); MYELOCYTE PERCENT MAN 8 % (0-0); NEUTROPHILS ABSOLUTE MAN 0.56 K/mm3 (1.96-9.15); PROMYELOCYTE ABSOLUTE MAN 0.03 K/mm3 (0.00-0.00); PROMYELOCYTE PERCENT MAN 2 % (0-0); SEG NEUTROPHILS PERCENT MAN 28 % (41-73); TOTAL CELLS COUNTED 50
[2024-10-02] MEDS ORDERED: FentaNYL Citrate 50 MCG/ML 2 ML Injection IV PRN (11:05)
[2024-10-02] MEDS ORDERED: Acetaminophen 325 MG TABLET PO PRN (11:05)
[2024-10-02] MEDS ORDERED: Insulin Human Lispro 100 Units/ML 3ML Syringe SC SCH (11:30)
--- NOTE | 2024-10-02 11:30 | NUR ---
ARRIVAL TO PCU 16 PT ARRIVED TO PCU 16 AT APPROXIMATELY 1100. PT AMBULATED FROM ER [place] [place] TO HOSPITAL BED WITH SBA. A&Ox4, CALLS AND COMMUNICATES NEEDS APPROPRIATELY, ORIENTED TO CALL LIGHT/UNIT. BP STABLE, SINUS 80's, DENIES CP/PRESSURE. SpO2> 92% RA, DENIES SOB AT REST, REPORTS SOB WITH ACTIVITY. C/O RIB/BACK PAIN, MANAGED PER EMAR. CALL LIGHT IN REACH, BED IN LOWEST POSITION.
[2024-10-02 11:50] VITALS: BP 140/63
[2024-10-02] MEDS ORDERED: MOUNJARO5 MG/0.5 M SC (11:59)
[2024-10-02 12:01] VITALS: BP 140/56
[2024-10-02] MEDS ORDERED: Ipratropium/Albuterol SulF 2.5-0.5MG/3 ML Amp INH SCH (12:05)
[2024-10-02] MEDS ORDERED: HYDROcodone 5-APAP 325 TAB PO PRN (12:05)
[2024-10-02 12:36] LABS: Hematocrit 25.9 % (37.0-53.0); Hemoglobin 9.6 g/dL (13.5-17.5); Mean Corpuscular HGB 33.1 pg (26.0-34.0); Mean Corpuscular HGB Conc 37.1 g/dL (31.5-36.5); Mean Corpuscular Volume 89 fL (80-100); RDW Coefficient Variation 12.2 % (11.7-14.2); RDW Standard Deviation 39.2 fL (35.1-46.3); White Blood Cell Count 1.42 K/mm3 (4.00-11.30)
[2024-10-02 13:03] LABS: Platelet Count 8 K/mm3 (150-400)
[2024-10-02 13:28] LABS: BASOPHILS PERCENT MAN 0 % (0-2); BLASTS PERCENT MAN 4 % (0-0); EOSINOPHILS PERCENT MAN 0 % (0-6); LYMPHOCYTES % ATYPICAL MANUAL 2 % (0-0); LYMPHOCYTES ABSOLUTE MAN 0.65 K/mm3 (0.84-5.20); LYMPHOCYTES PERCENT MAN 44 % (21-46); MONOCYTES ABSOLUTE MAN 0.25 K/mm3 (0.16-1.47); MONOCYTES PERCENT MAN 18 % (4-13); MYELOCYTE ABSOLUTE MAN 0.02 K/mm3 (0.00-0.00); MYELOCYTE PERCENT MAN 2 % (0-0); NEUTROPHILS ABSOLUTE MAN 0.42 K/mm3 (1.96-9.15); SEG NEUTROPHILS PERCENT MAN 30 % (41-73); TOTAL CELLS COUNTED 50
[2024-10-02 15:13] VITALS: BP 140/59
[2024-10-02 16:19] LABS: International Normalized Ratio 1.05; Prothrombin Time Results 11.2 Sec (9.7-11.5)
[2024-10-02] MEDS ORDERED: LevoFLOXacin 500 MG Tab PO SCH (16:25)
[2024-10-02 16:45] LABS: Free Thyroxine 0.97 ng/dL (0.70-1.60); Percent Saturation 39.8 % (20.0-50.0)
[2024-10-02 17:05] LABS: Thyroid Stimulating Hormone 1.57 uIU/mL (0.360-4.800)
--- NOTE | 2024-10-02 17:32 | NUR ---
SHIFT SUMMARY SEE PREVIOUS NOTE. NO ACUTE CHANGED. PLATELETS INFUSED WNL. VSS. MANAGED PAIN PER EMAR. CONTINENT OF URINE AND BOWEL, SBA TO BATHROOM. NO OTHER EVENTS, WILL REPORT TO ONCOMING RN.
[2024-10-02 19:30] VITALS: BP 120/55
[2024-10-02 19:59] LABS: Hematocrit 24.2 % (37.0-53.0); Hemoglobin 8.7 g/dL (13.5-17.5); Mean Corpuscular HGB 33.1 pg (26.0-34.0); Mean Corpuscular Volume 92 fL (80-100); Mean Platelet Volume 10.1 fL (9.1-12.4); RDW Coefficient Variation 12.4 % (11.7-14.2); RDW Standard Deviation 41.3 fL (35.1-46.3); Red Blood Cell Count 2.63 M/mm3 (4.30-5.90); White Blood Cell Count 1.27 K/mm3 (4.00-11.30)
[2024-10-02 20:09] LABS: Platelet Count 25 K/mm3 (150-400)
[2024-10-02 20:29] LABS: BAND PERCENT MAN 2 % (0-8); BASOPHILS PERCENT MAN 0 % (0-2); BLASTS PERCENT MAN 4 % (0-0); EOSINOPHILS PERCENT MAN 0 % (0-6); LYMPHOCYTES ABSOLUTE MAN 0.53 K/mm3 (0.84-5.20); LYMPHOCYTES PERCENT MAN 42 % (21-46); MONOCYTES ABSOLUTE MAN 0.17 K/mm3 (0.16-1.47); MONOCYTES PERCENT MAN 14 % (4-13); MYELOCYTE ABSOLUTE MAN 0.02 K/mm3 (0.00-0.00); MYELOCYTE PERCENT MAN 2 % (0-0); NEUTROPHILS ABSOLUTE MAN 0.48 K/mm3 (1.96-9.15); SEG NEUTROPHILS PERCENT MAN 36 % (41-73); TOTAL CELLS COUNTED 50
[2024-10-02 20:45] VITALS: BP 120/55
[2024-10-02] MEDS ORDERED: Acyclovir 400 MG Tab PO SCH (21:00)
[2024-10-02] MEDS ORDERED: Lactobacil 2-S.Thermo-Bifido 1 1 Cap PO SCH (21:00)
[2024-10-03] VITALS (7 sets, daily range): BP systolic 111–152; BP diastolic 47–71
[2024-10-03] MEDS ORDERED: Albuterol 2.5 MG/3 ML VIAL INH PRN (01:45)
[2024-10-03] MEDS ORDERED: LORazepam 2 MG/ML 1ML Injection IV ONE (01:45)
--- NOTE | 2024-10-03 02:29 | NUR ---
at about ~0140, pt awoke tachycardic with rate in the 100s, reporting sob, feeling very anxious. lung sounds clear, o2 sats >96% on room air, no pain reported. verified with tele that there had been no recent changes in rhythm pt reported that he was having a dream where he was fighting and woke up in a panic, feeling short of breath and like his heart was racing. spoke with RT who administered prn breathing treatment. JC Pascual spoke with Dr. Lopez who ordered 1 mg iv ativan one time for anxiety management. pt doing better now, able to relax in bed. reports symptoms hvaing mostly subsided. pt now resting comfortably in bed, hr remains mildly tachycardic with rate in the 90s-100s, o2 saturation remains >=96% on room air. continuing to monitor.
[2024-10-03 03:20] LABS: Hematocrit 26.3 % (37.0-53.0); Hemoglobin 9.5 g/dL (13.5-17.5); Mean Corpuscular HGB 32.9 pg (26.0-34.0); Mean Corpuscular HGB Conc 36.1 g/dL (31.5-36.5); Mean Corpuscular Volume 91 fL (80-100); NRBC ABSOLUTE 0.03 K/mm3 (0.00-0.02); NRBC Auto 1.8 /100 WBC (0.0-0.2); RDW Coefficient Variation 12.4 % (11.7-14.2); RDW Standard Deviation 41.3 fL (35.1-46.3); Red Blood Cell Count 2.89 M/mm3 (4.30-5.90); White Blood Cell Count 1.66 K/mm3 (4.00-11.30)
[2024-10-03 03:36] LABS: Platelet Count 24 K/mm3 (150-400)
--- NOTE | 2024-10-03 03:54 | NUR ---
pt again woke very anxious, reporting shortness of breath, tachypneic, mildly tachycardic with rate in the 100s-110s range. vitals otherwise stable, continuing to saturate >95% on room air. breathing treatment being administered. notified Dr. Lopez who reported he would come to floor very soon to evaluate patient. continuing to monitor.
[2024-10-03 03:58] LABS: BAND PERCENT MAN 2 % (0-8); BASOPHILS PERCENT MAN 0 % (0-2); BLASTS PERCENT MAN 8 % (0-0); EOSINOPHILS PERCENT MAN 0 % (0-6); LYMPHOCYTES % ATYPICAL MANUAL 6 % (0-0); LYMPHOCYTES ABSOLUTE MAN 0.59 K/mm3 (0.84-5.20); LYMPHOCYTES PERCENT MAN 30 % (21-46); MONOCYTES ABSOLUTE MAN 0.29 K/mm3 (0.16-1.47); MONOCYTES PERCENT MAN 18 % (4-13); MYELOCYTE ABSOLUTE MAN 0.06 K/mm3 (0.00-0.00); MYELOCYTE PERCENT MAN 4 % (0-0); NEUTROPHILS ABSOLUTE MAN 0.56 K/mm3 (1.96-9.15); SEG NEUTROPHILS PERCENT MAN 32 % (41-73); TOTAL CELLS COUNTED 50
[2024-10-03 04:20] LABS: Base Excess Venous 4.6 mmol/L; Bicarbonate Venous 27.6 mmol/L (24.0-30.0); PCO2 Venous 49.4 mmHg (38-42); pH Blood Venous 7.39 (7.34-7.37)
[2024-10-03 04:37] LABS: C-REACTIVE PROTEIN, EXT RANGE 8.95 mg/dL (0.000-0.300)
[2024-10-03 04:40] LABS: Albumin, Blood 3.3 g/dL (3.4-5.0); Albumin/Globulin Ratio 1.1 (0.8-1.8); Bilirubin, Total 0.3 mg/dL (0.1-1.0); Bun/Creatinine Ratio 15.7 (12.0-20.0); Creatinine, Blood 0.89 mg/dL (0.60-1.20); Potassium, Blood 3.9 mmol/L (3.5-5.5); Total Protein, Blood 6.3 g/dL (6.4-8.2)
--- NOTE | 2024-10-03 05:32 | NUR ---
PATIENT SUMMERY: ALERT AND ORIENTED X 3, SINUS RHYTHM AT 94. HAD AN EPISOD OF SINUS TACHYCARDIA AT 102 AND WAS COMPLAINING SOB WITH SATURATION > 90. PHYSICIAN NOTIFIED AND LABS ORDERED. BREATHING TREATMENTS ADMINISTERED BY RESPIRATORY THERAPIST. CURRENTLY RESTING NO SIGNS OF DISTRESS.
[2024-10-03] MEDS ORDERED: Levothyroxine Sodium 0.1 MG Tab PO SCH (06:00)
--- NOTE | 2024-10-03 06:08 | NUR ---
PATIENT SUMMURY: ALERT AND ORIENTED X4. ROOM AIR WITH SATURATIONS > 90. CALLS APPROPRIATELY FOR ASSISTANCE. SINUS RYTHM AT 98. ABLE TO STAND WITH MINIMAL ASSISTANCE. HAD AN EPISODE OF SOB X 2 WITH SATURATION GREATER THAN 90. SEE PREVIOUS NOTE. PHYSICIAN NOTIFIED, LABS ORDERED AND RESULTS RELATED TO PHYSICIAN. BREATHING TREATMENT ADMINISTERED AND PATIENT IS CURRENTLY WITH NO SIGNS OF DISTRESS OR SOB, CONTINUE TO MONITOR.
[2024-10-03] MEDS ORDERED: LORazepam 2 MG/ML 1ML Injection IV PRN (08:55)
[2024-10-03] MEDS ORDERED: Rosuvastatin Calcium 10 MG Tab PO SCH (09:00)
[2024-10-03] MEDS ORDERED: AmLODIPine Besylate 5 MG Tab PO SCH (09:00)
[2024-10-03] MEDS ORDERED: Enoxaparin 40 MG/0.4 ML SYR SC SCH (09:00)
[2024-10-03] MEDS ORDERED: CefTRIAXone Sodium 1,000 MG in NS 100 ML IV SCH (09:00)
--- NOTE | 2024-10-03 16:37 | NUR ---
SHIFT SUMMARY: PT ALERT AND ORIENTED X4, ABLE TO FOLLOW COMMANDS AND MAKE NEEDS KNOWN. STRENGTH EQUAL BILATERALLY. COOPERATIVE WITH CARE. BP AND HR STABLE. AFEBRILE. SPO2 >98% ON ROOM AIR, LUNG SOUNDS CLEAR THROUGHOUT. ABD SOFT, TENDER IN LLQ. MEDICATED PER EMAR. BOME MARROW BIOPSY CANCELLED THIS SHIFT, PLAN FOR PT TO FOLLOW UP OUTPATIENT W/ DR. MENDEZ 10/07. POSSIBLE DISCHARGE IN AM, BED IN LOW, CALL LIGHT IN REACH, WILL REPORT TO ONCOMING RN.
[2024-10-03] MEDS ORDERED: LORazepam 1 MG Tab PO PRN (17:35)
[2024-10-03 21:04] LABS: IMMUNOGLOBULIN A 83 mg/dL (68-408); IMMUNOGLOBULIN G 548 mg/dL (768-1632); IMMUNOGLOBULIN M 97 mg/dL (35-263)
[2024-10-03 23:06] LABS: ANTI-NUCLEAR AB ANA,IGG ELISA None Detected (None Detected)
[2024-10-04 03:41] LABS: EBV AB TO EARLY (D) AG IGG 10.5 U/mL (0.0-10.9); EBV AB TO VIRAL CAPSID AG IGG 18.7 U/mL (0.0-21.9); EBV AB TO VIRAL CAPSID AG IGM <10.0 U/mL (0.0-43.9); EBV ANTIBODY TO NUCLEAR AG IGG <3.0 U/mL (0.0-21.9)
[2024-10-04 03:54] LABS: Hematocrit 22.8 % (37.0-53.0); Mean Corpuscular HGB 31.9 pg (26.0-34.0); Mean Corpuscular HGB Conc 35.1 g/dL (31.5-36.5); Mean Corpuscular Volume 91 fL (80-100); Mean Platelet Volume 11.8 fL (9.1-12.4); NRBC ABSOLUTE 0.04 K/mm3 (0.00-0.02); NRBC Auto 2.2 /100 WBC (0.0-0.2); RDW Coefficient Variation 12.6 % (11.7-14.2); RDW Standard Deviation 41.7 fL (35.1-46.3); Red Blood Cell Count 2.51 M/mm3 (4.30-5.90); White Blood Cell Count 1.83 K/mm3 (4.00-11.30)
[2024-10-04 04:12] LABS: Bun/Creatinine Ratio 14.6 (12.0-20.0); Calcium, Blood 8.8 mg/dL (8.5-10.1); Creatinine, Blood 0.96 mg/dL (0.60-1.20); Potassium, Blood 4.5 mmol/L (3.5-5.5)
[2024-10-04 04:47] LABS: Platelet Count 18 K/mm3 (150-400)
[2024-10-04 04:49] VITALS: BP 113/57
--- NOTE | 2024-10-04 05:15 | NUR ---
SHIFT SUMMARY. SHIFT HAS BEEN MOSTLY UNREMARKABLE. PT AOX4, PLEASANT, COOPERATIVE, ABLE TO MAKE NEEDS KNOWN. HAS BEEN ABLE TO REST COMFORTABLY THROUGHOUT MOST OF SHIFT. PT CONTINUES TO HAVE SOME ANXIETY FOR WHICH WAS MEDICATED X1 WITH PRN ATIVAN WHICH HAS WORKED WELL THUS FAR. PT WOKE FROM SLEEPING RECENTLY REPORTING SOB AND DYSPNEA WITH PERCEIVED INABILITY TO TAKE DEEP BREATHS. RESPIRATIONS NOTED TO BE SHALLOW. LUNG SOUNDS UNCHANGED FROM PREVIOUS ASSESSMENT, WAS MAINTAINING >95% ON ROOM AIR. BREATHING TREATMENT ADMINISTERED WHICH HAS OFFERED RELIEF THUS FAR. SHIFT OTHERWISE UNREMARKABLE. VITALS STABLE. PT HAS BEEN RUNNING SINUS THROUGHOUT SHIFT. BED LOCKED IN LOWEST POSITION. CALL LIGHT LEFT WITHIN REACH. CONTINUING TO MONITOR.
[2024-10-04 05:27] LABS: BAND PERCENT MAN 4 % (0-8); BASOPHILS PERCENT MAN 0 % (0-2); BLASTS PERCENT MAN 6 % (0-0); EOSINOPHILS ABSOLUTE MAN 0.03 K/mm3 (0.00-0.68); EOSINOPHILS PERCENT MAN 2 % (0-6); LYMPHOCYTES % ATYPICAL MANUAL 2 % (0-0); LYMPHOCYTES ABSOLUTE MAN 0.76 K/mm3 (0.84-5.20); LYMPHOCYTES PERCENT MAN 40 % (21-46); MONOCYTES ABSOLUTE MAN 0.36 K/mm3 (0.16-1.47); MONOCYTES PERCENT MAN 20 % (4-13); MYELOCYTE ABSOLUTE MAN 0.07 K/mm3 (0.00-0.00); MYELOCYTE PERCENT MAN 4 % (0-0); NEUTROPHILS ABSOLUTE MAN 0.47 K/mm3 (1.96-9.15); SEG NEUTROPHILS PERCENT MAN 22 % (41-73); TOTAL CELLS COUNTED 50
[2024-10-04 08:27] VITALS: BP 150/64
[2024-10-04 11:37] VITALS: BP 144/74
--- NOTE | 2024-10-04 14:41 | NUR ---
TRANSFER: REPORT CALLED TO KARMEN GREENE. PT TRANSFERRED TO MEDICAL ROOM 332. ALL BELONGINGS WITH PT.
[2024-10-04 15:00] VITALS: BP 153/61
--- NOTE | 2024-10-04 15:03 | NUR ---
PT ARRIVED TO UNIT AT APROX 1503 TX FROM PCU. PT A/O X'S 4. LUNGS CLEAR T/O UPON ARRIVAL, PT ON RA NO TELE . PT REPORTS BACK PAIN AND REQUESTING PAIN MEDICATION, STATES THE PAIN HAS BEEN ONGOING THIS ADMIT. PT PLACED IN NEUTROPENIC PRECAUTIONS.
--- NOTE | 2024-10-04 18:42 | NUR ---
NO ACUTE CHANGES SINCE ASSUMING CARE. PT MEDICATED ONCE FOR PAIN WITH 1 NORCO, SEE EMAR. TOLERATING PO WITH NO N/V.
[2024-10-04 19:52] VITALS: BP 127/55
--- NOTE | 2024-10-05 03:08 | NUR ---
SHIFT SUMMARY PATIENT HAS APPEARED TO SLEEP COMFORTABLY THROUGHOUT THE NIGHT. HE WAS MEDICATED X1 WITH NORCO FOR LEFT FLANK PAIN. PATIENT IS ORIENTED X4. HE HAS HIS CALL LIGHT WITHIN REACH AND HAS BEEN INSTRUCTED TO CALL WITH ANY REQUESTS OR NEEDS. SAFETY PRECAUTIONS ARE BEING MAINTAINED.
[2024-10-05 04:03] VITALS: BP 128/61
[2024-10-05 05:44] LABS: Hematocrit 23.2 % (37.0-53.0); Hemoglobin 8.2 g/dL (13.5-17.5); Mean Corpuscular HGB 31.9 pg (26.0-34.0); Mean Corpuscular HGB Conc 35.3 g/dL (31.5-36.5); Mean Corpuscular Volume 90 fL (80-100); NRBC ABSOLUTE 0.06 K/mm3 (0.00-0.02); NRBC Auto 3.4 /100 WBC (0.0-0.2); RDW Coefficient Variation 12.4 % (11.7-14.2); RDW Standard Deviation 40.9 fL (35.1-46.3); Red Blood Cell Count 2.57 M/mm3 (4.30-5.90); White Blood Cell Count 1.77 K/mm3 (4.00-11.30)
[2024-10-05 05:48] LABS: Platelet Count 15 K/mm3 (150-400)
[2024-10-05 06:02] LABS: Bun/Creatinine Ratio 19.8 (12.0-20.0); Calcium, Blood 9.1 mg/dL (8.5-10.1); Creatinine, Blood 0.96 mg/dL (0.60-1.20); Potassium, Blood 4.3 mmol/L (3.5-5.5)
[2024-10-05 06:25] LABS: BAND PERCENT MAN 3 % (0-8); BASOPHILS ABSOLUTE MAN 0.01 K/mm3 (0.00-0.23); BASOPHILS PERCENT MAN 1 % (0-2); BLASTS PERCENT MAN 6 % (0-0); EOSINOPHILS PERCENT MAN 0 % (0-6); LYMPHOCYTES % ATYPICAL MANUAL 4 % (0-0); LYMPHOCYTES ABSOLUTE MAN 0.88 K/mm3 (0.84-5.20); LYMPHOCYTES PERCENT MAN 46 % (21-46); MONOCYTES ABSOLUTE MAN 0.31 K/mm3 (0.16-1.47); MONOCYTES PERCENT MAN 18 % (4-13); MYELOCYTE ABSOLUTE MAN 0.01 K/mm3 (0.00-0.00); MYELOCYTE PERCENT MAN 1 % (0-0); NEUTROPHILS ABSOLUTE MAN 0.42 K/mm3 (1.96-9.15); SEG NEUTROPHILS PERCENT MAN 21 % (41-73); TOTAL CELLS COUNTED 100
[2024-10-05 07:37] VITALS: BP 130/67
[2024-10-05] MEDS ORDERED: NS 250 ML IV PRN (14:10)
[2024-10-05 16:20] VITALS: BP 150/55
--- NOTE | 2024-10-05 16:34 | NUR ---
SHIFT SUMMARY: PATIENT A/OX4, PLEASANT AND COOPERATIVE c CARE. PATIENT DENIES CP/PRESSURE, SOB, N/V AND DIZZINESS. PATIENT MEDICATED X1 FOR ANXIETY AND X2 FOR BACK/L SIDE PAIN PER EMAR c GOOD EFFECT. PATIENT HAS GOOD APPETITE, CONTINENT OF BLADDER, AMBULATES TO BATHROOM INDEPENDENTLY. VITAL SIGNS REVIEWED. PATIENT HAS HAD NO COMPLAINTS OR DENIES NEW CONCERNED THIS SHIFT. BED IN LOWEST POSITIONED. CALL LIGHT IN REACH.
[2024-10-05 19:40] VITALS: BP 155/55
--- NOTE | 2024-10-06 04:04 | NUR ---
AAOX4. RA. UP to BR independently. #20 RAC. ACHS BG checks. Slept well throughout the night without any acute needs. Plan is to get platelets infused and then biopsy and dc home to sisters house since pt. lives alone.
[2024-10-06 04:08] VITALS: BP 119/59
[2024-10-06 05:53] LABS: Hematocrit 22.7 % (37.0-53.0); Hemoglobin 8.1 g/dL (13.5-17.5); Mean Corpuscular HGB 32.7 pg (26.0-34.0); Mean Corpuscular HGB Conc 35.7 g/dL (31.5-36.5); Mean Corpuscular Volume 92 fL (80-100); Mean Platelet Volume 11.7 fL (9.1-12.4); NRBC ABSOLUTE 0.07 K/mm3 (0.00-0.02); NRBC Auto 3.3 /100 WBC (0.0-0.2); RDW Coefficient Variation 12.5 % (11.7-14.2); RDW Standard Deviation 41.7 fL (35.1-46.3); Red Blood Cell Count 2.48 M/mm3 (4.30-5.90); White Blood Cell Count 2.12 K/mm3 (4.00-11.30)
[2024-10-06 06:11] LABS: Platelet Count 13 K/mm3 (150-400)
[2024-10-06 06:19] LABS: Albumin, Blood 3.1 g/dL (3.4-5.0); Albumin/Globulin Ratio 1.1 (0.8-1.8); Bilirubin, Total 0.3 mg/dL (0.1-1.0); Bun/Creatinine Ratio 17.1 (12.0-20.0); Calcium, Blood 8.9 mg/dL (8.5-10.1); Creatinine, Blood 1.05 mg/dL (0.60-1.20); Globulin, Blood 2.9 g/dL (2.2-4.0); Potassium, Blood 4.3 mmol/L (3.5-5.5)
[2024-10-06 06:27] LABS: BAND PERCENT MAN 3 % (0-8); BASOPHILS PERCENT MAN 0 % (0-2); BLASTS PERCENT MAN 7 % (0-0); EOSINOPHILS PERCENT MAN 0 % (0-6); LYMPHOCYTES % ATYPICAL MANUAL 2 % (0-0); LYMPHOCYTES PERCENT MAN 50 % (21-46); METAMYELOCYTE ABSOLUTE MAN 0.04 K/mm3 (0.00-0.00); METAMYELOCYTE PERCENT MAN 2 % (0-0); MONOCYTES ABSOLUTE MAN 0.14 K/mm3 (0.16-1.47); MONOCYTES PERCENT MAN 7 % (4-13); MYELOCYTE ABSOLUTE MAN 0.08 K/mm3 (0.00-0.00); MYELOCYTE PERCENT MAN 4 % (0-0); NEUTROPHILS ABSOLUTE MAN 0.59 K/mm3 (1.96-9.15); SEG NEUTROPHILS PERCENT MAN 25 % (41-73); TOTAL CELLS COUNTED 100
[2024-10-06 07:33] VITALS: BP 133/59
[2024-10-06 15:14] VITALS: BP 137/57
[2024-10-06] MEDS ORDERED: Ipratropium/Albuterol SulF 2.5-0.5MG/3 ML Amp ONE (15:23)
--- NOTE | 2024-10-06 18:17 | NUR ---
SHIFT SUMMARY: PT A&O X4. PLEASANT AND COOPERATIVE WITH CARE. SB ASSIST IN ROOM AND WHEN WALKING HALLS. PLAN FOR BM BIOPSY TOMORROW. NPO AFTER MIDNIGHT. ORDER PLACED TO INFUSE ONE UNIT PLATELETS ONE HOUR PRIOR TO BIPOSY. PT C/O 03/25 PAIN IN LEFT SIDE TO MIDDLE BACK. PAIN MEDICATION PROVIDED PER EMAR. CALL LIGHT IN REACH. BED IN LOWEST POSITION.
[2024-10-06 19:31] VITALS: BP 139/62
[2024-10-07 03:59] VITALS: BP 104/52
--- NOTE | 2024-10-07 04:48 | NUR ---
AAOX4, USES CALL LIGHT FOR NEEDS. INDEPENDENT IN ROOM. RA. NEUTOPENIC PRECAUTIONS. NPO @ 0000 FOR BIOPSY AND PLATLET INFUSION. PLANS TO STAY WITH SISTER IF NEEDED WHEN DC'D SINCE HE LIVES ALONE. NO ACUTE NEEDS OVERNIGHT, SLEPT WELL.
[2024-10-07 05:58] LABS: Hematocrit 23.4 % (37.0-53.0); Hemoglobin 8.3 g/dL (13.5-17.5); Mean Corpuscular HGB Conc 35.5 g/dL (31.5-36.5); Mean Corpuscular Volume 90 fL (80-100); NRBC ABSOLUTE 0.07 K/mm3 (0.00-0.02); NRBC Auto 3.4 /100 WBC (0.0-0.2); RDW Coefficient Variation 12.3 % (11.7-14.2); RDW Standard Deviation 40.8 fL (35.1-46.3); Red Blood Cell Count 2.59 M/mm3 (4.30-5.90); White Blood Cell Count 2.08 K/mm3 (4.00-11.30)
[2024-10-07 06:04] LABS: Platelet Count 12 K/mm3 (150-400)
[2024-10-07 06:17] LABS: Bun/Creatinine Ratio 17.6 (12.0-20.0); Creatinine, Blood 1.02 mg/dL (0.60-1.20); Potassium, Blood 4.3 mmol/L (3.5-5.5)
[2024-10-07 06:22] LABS: BAND PERCENT MAN 4 % (0-8); BASOPHILS PERCENT MAN 0 % (0-2); BLASTS PERCENT MAN 8 % (0-0); EOSINOPHILS PERCENT MAN 0 % (0-6); LYMPHOCYTES % ATYPICAL MANUAL 1 % (0-0); LYMPHOCYTES ABSOLUTE MAN 0.81 K/mm3 (0.84-5.20); LYMPHOCYTES PERCENT MAN 38 % (21-46); METAMYELOCYTE ABSOLUTE MAN 0.12 K/mm3 (0.00-0.00); METAMYELOCYTE PERCENT MAN 6 % (0-0); MONOCYTES ABSOLUTE MAN 0.43 K/mm3 (0.16-1.47); MONOCYTES PERCENT MAN 21 % (4-13); NEUTROPHILS ABSOLUTE MAN 0.52 K/mm3 (1.96-9.15); PLASMA CELL ABSOLUTE MAN 0.02 K/mm3 (0.00-0.00); PLASMA CELLS PERCENT MAN 1 % (0-0); SEG NEUTROPHILS PERCENT MAN 21 % (41-73); TOTAL CELLS COUNTED 100
[2024-10-07 07:36] VITALS: BP 124/59
[2024-10-07 07:55] LABS: ALBUMIN 3.81 g/dL (3.75-5.01); ALPHA 1 GLOBULIN 0.45 g/dL (0.19-0.46); ALPHA 2 GLOBULIN 0.72 g/dL (0.48-1.05); BETA GLOBULIN 0.59 g/dL (0.48-1.10); GAMMA 0.54 g/dL (0.62-1.51); IMMUNOFIXATION REFLEX IFE Done; TOTAL PROTEIN,SERUM 6.1 g/dL (6.3-8.2)
[2024-10-07] MEDS ORDERED: ACYC400 PO (12:10)
[2024-10-07] MEDS ORDERED: Norco 5-325 Ta1 EACH PO (12:11)
[2024-10-07] MEDS ORDERED: VISBIOME 112.51 EACH PO (12:12)
[2024-10-07] MEDS ORDERED: LORA.5 PO (12:12)
[2024-10-07] MEDS ORDERED: LEVFLO500 PO (12:12)
[2024-10-07 13:37] VITALS: BP 135/63
[2024-10-07 13:47] VITALS: BP 143/65
[2024-10-07 14:15] VITALS: BP 144/62
[2024-10-07 15:56] VITALS: BP 119/55
--- NOTE | 2024-10-07 16:34 | NUR ---
DISCHARGE PT DISCHARGED AFTER BONE MARROW BIOPSY. PT AND BROTHER IN LAW, [place], EDUCATED ON NEW MEDS, FOLLOW UP LABS/APPOINTMENTS NEEDED. BOTH STATE THEY UNDERSTAND THESE DIRECTIONS. PT WAS EDUCATED ON THE RISK OF INCREASED BLEEDING WHILE HIS PLATELETS ARE LOW. PT STATES HE UNDERSTANDS AND WILL TAKE NECESSARY PRECAUTIONS TO PREVENT INJURY WHILE AT HOME. NO OTHER ACUTE CHANGES IN ASSESSMENT AT THIS TIME. VS REVIEWED. WHEELED OUT BY AIDE.
== END 2024-10-07 16:31 | disposition home or self-care (01) | DRG 835 ==
LOC: ER 05:39 → PCU 05:40 → MEDS 05:40 → ER 05:40 → PCU 10:42 → UNDODEPER 10-03 20:18 → MEDS 10-04 14:55 → PCU 10-04 14:55 → MEDS 10-04 16:56
PROVIDERS: Family Medicine; Internal Medicine Hematology & Oncology; Student in an Organized Health Care Education/Training Program; ADMIT Internal Medicine
PROC: 30233R1 Transfusion of Nonautologous Platelets into Peripheral Vein, Percutaneous Approach (ICD-10-PCS; principal; 2024-10-07)
PROC: 07DR3ZX Extraction of Iliac Bone Marrow, Percutaneous Approach, Diagnostic (ICD-10-PCS; 2024-10-07)
DX: C92.00 Acute myeloblastic leukemia, not having achieved remission (principal); D61.818 Other pancytopenia; M87.9 Osteonecrosis, unspecified; E87.1 Hypo-osmolality and hyponatremia; D46.9 Myelodysplastic syndrome, unspecified; J44.9 Chronic obstructive pulmonary disease, unspecified; I10 Essential (primary) hypertension; E03.9 Hypothyroidism, unspecified; M54.89 Other dorsalgia; D73.5 Infarction of spleen; I45.10 Unspecified right bundle-branch block; F17.210 Nicotine dependence, cigarettes, uncomplicated; D47.3 Essential (hemorrhagic) thrombocythemia; E11.51 Type 2 diabetes mellitus with diabetic peripheral angiopathy without gangrene; Z60.2 Problems related to living alone; Z91.81 History of falling; Z79.85 Long-term (current) use of injectable non-insulin antidiabetic drugs; Z79.890 Hormone replacement therapy; Z79.84 Long term (current) use of oral hypoglycemic drugs; Z79.82 Long term (current) use of aspirin; Z79.02 Long term (current) use of antithrombotics/antiplatelets; Z95.820 Peripheral vascular angioplasty status with implants and grafts
CPT/HCPCS: 0241U; 20225; 36415; 36430; 71046; 74177; 77012; 80048; 80053; 80076; 81001; 82607; 82728; 82746; 82784; 82803; 82947; 83521; 83540; 83550; 83605; 83615; 84145; 84155; 84165; 84439; 84443; 85007; 85025; 85027; 85379; 85610; 85730; 86038; 86140; 86334; 86663; 86664; 86665; 86900; 86901; 87040; 88313; 88341; 88342; 93005; 93010; 94640; 94664; 94760; 94762; 96361; 96375; 96376; 97116; 97162; 97530; 99285-25; A9270; G0378; J0696; J2060; J3010; J7030; J7050; P9035; Q9967

== ENCOUNTER 2024-10-17 00:30 | Inpatient (IN) | payer MEDICARE, OTHER ==
[~2024-10-17] VITALS: Ht 177.8 cm; Wt 87.7 kg
[2024-10-17] VITALS (93 sets, daily range): BP systolic 88–152; BP diastolic 40–91
[~2024-10-17 00:30] MED LIST changes: +ACYC400 PO; +LEVFLO500 PO; +LORA.5 PO; +MOUNJARO5 MG/0.5 M SC; +Norco 5-325 Ta1 EACH PO; +VISBIOME 112.51 EACH PO
[2024-10-17] MEDS ORDERED: LORazepam 2 MG/ML 1ML Injection IV ONE ×2 (00:40→17:06)
[2024-10-17] MEDS ORDERED: Ipratropium/Albuterol SulF 2.5-0.5MG/3 ML Amp ONE (00:40)
[2024-10-17] MEDS ORDERED: Albuterol 2.5 MG/3 ML VIAL ONE (00:40)
[2024-10-17] MEDS ORDERED: NS 1,000 ML IV SCH ×2 (00:40→16:00)
[2024-10-17 00:44] LABS: Calcium, Ionized (POC) 1.16 mmol/L (1.10-1.46); Chloride (POC) 95 mmol/L (98-108); Creatinine (POC) 1.6 mg/dL (0.8-1.3); Glucose (ISTAT POC) 330 mg/dL (70-99); Hemoglobin (POC) 6.8 g/dL (13.5-17.5); Potassium (POC) 4.4 mmol/L (3.5-5.5); Sodium (POC) 128 mmol/L (135-148); Total CO2 (POC) 22 mmol/L (21-32)
[2024-10-17 00:48] LABS: Base Excess Venous -9.9 mmol/L; Bicarbonate Venous 16.8 mmol/L (24.0-30.0); PCO2 Venous 55.1 mmHg (38-42); pH Blood Venous 7.15 (7.34-7.37)
[2024-10-17] MEDS ORDERED: Albuterol 2.5 MG/3 ML VIAL INH ONE (00:50)
[2024-10-17] MEDS ORDERED: Ipratropium/Albuterol SulF 2.5-0.5MG/3 ML Amp INH ONE (00:55)
[2024-10-17] MEDS ORDERED: fentaNYL citrate 1,000 MCG in NS 80 ML IV SCH ×2 (01:05→23:00)
[2024-10-17] MEDS ORDERED: Midazolam HCL 50 MG in NS 40 ML IV PRN ×2 (01:05→23:00)
[2024-10-17 01:10] LABS: Hematocrit 22.8 % (37.0-53.0); Hemoglobin 7.7 g/dL (13.5-17.5); Mean Corpuscular HGB Conc 33.8 g/dL (31.5-36.5); Mean Corpuscular Volume 95 fL (80-100); NRBC ABSOLUTE 1.02 K/mm3 (0.00-0.02); NRBC Auto 7.4 /100 WBC (0.0-0.2); RDW Coefficient Variation 12.9 % (11.7-14.2); RDW Standard Deviation 44.8 fL (35.1-46.3); Red Blood Cell Count 2.41 M/mm3 (4.30-5.90); White Blood Cell Count 13.79 K/mm3 (4.00-11.30)
[2024-10-17 01:17] LABS: Source, Urine Clean Catch
[2024-10-17 01:22] LABS: Platelet Count 36 K/mm3 (150-400)
[2024-10-17 01:27] LABS: Thyroid Stimulating Hormone 6.59 uIU/mL (0.360-4.800)
[2024-10-17 01:28] LABS: Albumin, Blood 3.3 g/dL (3.4-5.0); Albumin/Globulin Ratio 1.1 (0.8-1.8); Bilirubin, Total 0.5 mg/dL (0.1-1.0); Bun/Creatinine Ratio 15.9 (12.0-20.0); Calcium, Blood 8.3 mg/dL (8.5-10.1); Creatinine, Blood 1.26 mg/dL (0.60-1.20); Globulin, Blood 2.9 g/dL (2.2-4.0); Potassium, Blood 4.6 mmol/L (3.5-5.5); Total Protein, Blood 6.2 g/dL (6.4-8.2)
[2024-10-17 01:34] LABS: BAND PERCENT MAN 1 % (0-8); BASOPHILS ABSOLUTE MAN 0.13 K/mm3 (0.00-0.23); BASOPHILS PERCENT MAN 1 % (0-2); BLASTS PERCENT MAN 27 % (0-0); EOSINOPHILS PERCENT MAN 0 % (0-6); LYMPHOCYTES ABSOLUTE MAN 5.51 K/mm3 (0.84-5.20); LYMPHOCYTES PERCENT MAN 40 % (21-46); METAMYELOCYTE ABSOLUTE MAN 0.13 K/mm3 (0.00-0.00); METAMYELOCYTE PERCENT MAN 1 % (0-0); MONOCYTES ABSOLUTE MAN 1.37 K/mm3 (0.16-1.47); MONOCYTES PERCENT MAN 10 % (4-13); MYELOCYTE ABSOLUTE MAN 0.27 K/mm3 (0.00-0.00); MYELOCYTE PERCENT MAN 2 % (0-0); NEUTROPHILS ABSOLUTE MAN 2.62 K/mm3 (1.96-9.15); SEG NEUTROPHILS PERCENT MAN 18 % (41-73); TOTAL CELLS COUNTED 100
[2024-10-17 01:54] LABS: Bilirubin, Urine Neg (Neg); Blood, Urine 3+ (Neg); Glucose Qualitative, Urine 2+ (Neg); Ketones, Urine Neg (Neg); Leukocyte Esterase, Urine Neg (Neg); Nitrite, Urine Neg (Neg); Protein, Urine 3+ (Neg); Specific Gravity, Urine 1.025 (1.003-1.022); Urobilinogen, Urine NORM (Normal)
[2024-10-17 02:11] LABS: Appearance, Urine Hazy (Clear); Color, Urine Yellow (P-Yellow)
[2024-10-17 02:13] LABS: Amorphous Light (0-Heavy); Bacteria Mod /hpf; Granular Casts 0-2 /lpf (0); Squamous Epithelial Cells Mod /hpf (Few); White Blood Cells, Urine 0-2 /hpf (0-5)
[2024-10-17 02:16] LABS: U Amphetamine Screen Not Detected; U Barbituate Screen Not Detected; U Benzodiazapine Screen DETECTED; U Buprenorphine Screen Not Detected; U Cannabinoids Screen DETECTED; U Cocaine Screen Not Detected; U Methadone Screen Not Detected; U Methamphetamine Screen Not Detected; U Opiates Screen Not Detected; U Oxycodone Screen DETECTED; U Phencyclidine Screen Not Detected
[2024-10-17] MEDS ORDERED: Cefepime HCl 2,000 MG in NS 100 ML IV ONE (02:30)
[2024-10-17] MEDS ORDERED: Vancomycin HCL 2,000 MG in NS 500 ML IV ONE (02:40)
[2024-10-17 02:59] LABS: Influenza A, PCR NEGATIVE (NEGATIVE); Influenza B, PCR NEGATIVE (NEGATIVE); Resp Syncytial Virus, PCR NEGATIVE (NEGATIVE); SARS-Cov-2 (COVID-19) PCR, MMC NEGATIVE (NEGATIVE)
[2024-10-17] MEDS ORDERED: LORazepam 2 MG/ML 1ML Injection IV PRN (03:45)
[2024-10-17] MEDS ORDERED: propofoL 100 ML IV SCH (03:45)
[2024-10-17] MEDS ORDERED: NS 250 ML IV PRN (03:45)
[2024-10-17] MEDS ORDERED: Hydrogen Peroxide 1.5 % Solution MT SCH (04:00)
[2024-10-17] MEDS ORDERED: Pantoprazole Sodium 40 MG Injection IV SCH (06:00)
[2024-10-17 06:13] LABS: Hematocrit 21.1 % (37.0-53.0); Hemoglobin 7.4 g/dL (13.5-17.5); Mean Corpuscular HGB 32.2 pg (26.0-34.0); Mean Corpuscular HGB Conc 35.1 g/dL (31.5-36.5); Mean Corpuscular Volume 92 fL (80-100); NRBC ABSOLUTE 0.39 K/mm3 (0.00-0.02); NRBC Auto 6.4 /100 WBC (0.0-0.2); RDW Coefficient Variation 13.2 % (11.7-14.2); White Blood Cell Count 6.08 K/mm3 (4.00-11.30)
--- NOTE | 2024-10-17 06:15 | NUR ---
SHIFT SUMMARY PATIENT TO ICU 12 FROM ER AT APPROX 0230. PATIENT INTUBATED AND SEDATED ON VERSED AND FENTANYL ON ARRIVAL, TITRATED VERSED UP DUE TO PATIENT WAKING UP AND BEING VERY AGITTATED, PRN ATIVAN GIVEN AND PATIENT STILL AWAKE, PROPOFOL STARTED. PLAN WAS TO TITRATE VERSED OFF BUT PATIENT BLOOD PRESSURE DECREASED WITH PROPOFOL SO TRANSITIONING BACK TO VERSED DRIP. SP02 96% ON VENT AC VC 20/500/8/80%. HR SR 85, BP NOW STABLE. SHOEMAKER PATENT AND DRAINING TO GRAVITY. OG TO LIS, SMALL AMOUNT OF BILE. 1 UNIT OF PRBCs STARTED IN ER. PATIENT REPOSITIONED. SEE SHIFT ASSESSMENT FOR MORE INFORMATION
[2024-10-17 06:20] LABS: Mean Platelet Volume 13.6 fL (9.1-12.4)
[2024-10-17 06:21] LABS: Platelet Count 17 K/mm3 (150-400)
[2024-10-17 06:31] LABS: Albumin, Blood 2.5 g/dL (3.4-5.0); Albumin/Globulin Ratio 1.1 (0.8-1.8); Bilirubin, Total 0.5 mg/dL (0.1-1.0); Bun/Creatinine Ratio 17.8 (12.0-20.0); Calcium, Blood 7.7 mg/dL (8.5-10.1); Creatinine, Blood 1.29 mg/dL (0.60-1.20); Globulin, Blood 2.2 g/dL (2.2-4.0); Potassium, Blood 4.7 mmol/L (3.5-5.5); Total Protein, Blood 4.7 g/dL (6.4-8.2)
[2024-10-17 06:52] LABS: BASOPHILS PERCENT MAN 0 % (0-2); EOSINOPHILS PERCENT MAN 0 % (0-6); MONOCYTES ABSOLUTE MAN 1.15 K/mm3 (0.16-1.47); MONOCYTES PERCENT MAN 19 % (4-13); TOTAL CELLS COUNTED 100
[2024-10-17 07:01] LABS: BAND PERCENT MAN 4 % (0-8); BLASTS PERCENT MAN 8 % (0-0); LYMPHOCYTES PERCENT MAN 34 % (21-46); METAMYELOCYTE PERCENT MAN 5 % (0-0); MYELOCYTE ABSOLUTE MAN 0.12 K/mm3 (0.00-0.00); MYELOCYTE PERCENT MAN 2 % (0-0); NEUTROPHILS ABSOLUTE MAN 1.88 K/mm3 (1.96-9.15); PROMYELOCYTE ABSOLUTE MAN 0.06 K/mm3 (0.00-0.00); PROMYELOCYTE PERCENT MAN 1 % (0-0); SEG NEUTROPHILS PERCENT MAN 27 % (41-73)
[2024-10-17 07:08] LABS: LYMPHOCYTES % ATYPICAL MANUAL 0 % (0-0); LYMPHOCYTES ABSOLUTE MAN 2.06 K/mm3 (0.84-5.20)
[2024-10-17] MEDS ORDERED: Insulin Human Lispro 100 Units/ML 3ML Syringe SC SCH ×3 (08:00→18:00)
[2024-10-17] MEDS ORDERED: Piperacillin/Tazobactam Sod 3.375 GM in NS 100 ML IV SCH (08:00)
[2024-10-17] MEDS ORDERED: Cetylpyridinium Chloride 1 EA MISC MT SCH (08:00)
[2024-10-17] MEDS ORDERED: Rocuronium Bromide 10MG / ML 10ML Vial IV ONE (08:14)
--- NOTE | 2024-10-17 08:15 | NUR ---
[place] of care: Restless with RASS of +1. Purposeful movement in all extremities but does not follow commands. Pupils 2/brisk. Positive cough/gag. Fentanyl, versed, propofol infusing - see emar for details. In NSR in the 70s. Blood pressures stable with MAPS above 65. On ACVC - 20/500/8/80%. Coarse lung sounds bilaterally. Fernando cath & OGT secure & patent. PIV x4 in place. Will continue to monitor. Discussed plan of care with Dr. Call on his rounds.
[2024-10-17] MEDS ORDERED: Magnesium Sulfate 500 MG / ML 2ML Vial IV ONE (08:17)
[2024-10-17] MEDS ORDERED: MethylPREDNISolone Sod Succ 125 MG Vial IV SCH (09:00)
[2024-10-17] MEDS ORDERED: Insulin Glargine-Yfgn 100 Unit/mL 3 ML SYR SC SCH (13:00)
[2024-10-17 14:30] LABS: Base Excess Venous -3.5 mmol/L; Bicarbonate Venous 21.6 mmol/L (24.0-30.0); PCO2 Venous 38.2 mmHg (38-42); pH Blood Venous 7.37 (7.34-7.37)
[2024-10-17] MEDS ORDERED: Vancomycin HCL 750 MG in NS 250 ML IV SCH (15:00)
[2024-10-17] MEDS ORDERED: NS 1,000 ML IV ONE (15:00)
[2024-10-17] MEDS ORDERED: Bisacodyl 10 MG Supp PR PRN (18:00)
[2024-10-17] MEDS ORDERED: Docusate Sodium Liquid 100 MG UDC PT PRN (18:00)
[2024-10-17] MEDS ORDERED: Magnesium Hydroxide Conc 10 ML UDC PT PRN (18:00)
--- NOTE | 2024-10-17 18:00 | NUR ---
End of shift summary: Propofol at 20 mcgs/kg/min, fentanyl at 100 mcgs/hr, versed at 1 mg/hr. Agitated when aroused. Does not follow commands. Moves all extremities purposefully. Levophed gtt infusing at 4 mcgs/min with stable MAPs above 65. On ACVC 20/500/5/40% with oxygen saturations in mid 90s. Clear to coarse lung sounds. OGT and bateman cath secure in place. Awaiting nutrition orders. PIV x4. NS infusing at 150cc/hr. Minimal urine output today - Dr. Rodriguez aware. [id number] updated multiple times by staff. Will continue to monitor.
[2024-10-17] MEDS ORDERED: Etomidate 2MG / ML 10ML Vial IV ONE (19:00)
[2024-10-17] MEDS ORDERED: Rocuronium Bromide 10 MG/ML 5ML Injection IV ONE ×2 (19:00→21:50)
[2024-10-17] MEDS ORDERED: Etomidate 2MG / ML 10ML Vial XX ONE (21:50)
[2024-10-18] VITALS (77 sets, daily range): BP systolic 91–166; BP diastolic 43–139
[2024-10-18 03:35] LABS: Hematocrit 21.7 % (37.0-53.0); Hemoglobin 7.7 g/dL (13.5-17.5); Mean Corpuscular HGB 31.6 pg (26.0-34.0); Mean Corpuscular HGB Conc 35.5 g/dL (31.5-36.5); Mean Corpuscular Volume 89 fL (80-100); NRBC ABSOLUTE 0.17 K/mm3 (0.00-0.02); NRBC Auto 3.6 /100 WBC (0.0-0.2); RDW Coefficient Variation 13.7 % (11.7-14.2); RDW Standard Deviation 44.3 fL (35.1-46.3); Red Blood Cell Count 2.44 M/mm3 (4.30-5.90); White Blood Cell Count 4.75 K/mm3 (4.00-11.30)
[2024-10-18 03:49] LABS: Platelet Count 13 K/mm3 (150-400)
[2024-10-18 03:54] LABS: Magnesium, Blood 2.1 mg/dL (1.6-2.4)
[2024-10-18 03:55] LABS: Albumin, Blood 2.5 g/dL (3.4-5.0); Bilirubin, Total 0.5 mg/dL (0.1-1.0); Bun/Creatinine Ratio 22.8 (12.0-20.0); Calcium, Blood 7.8 mg/dL (8.5-10.1); Creatinine, Blood 1.49 mg/dL (0.60-1.20); Globulin, Blood 2.5 g/dL (2.2-4.0); Phosphorus, Blood 5.9 mg/dL (2.5-4.9); Potassium, Blood 4.5 mmol/L (3.5-5.5)
[2024-10-18 04:22] LABS: BAND PERCENT MAN 3 % (0-8); BASOPHILS PERCENT MAN 0 % (0-2); BLASTS PERCENT MAN 7 % (0-0); EOSINOPHILS PERCENT MAN 0 % (0-6); LYMPHOCYTES % ATYPICAL MANUAL 2 % (0-0); LYMPHOCYTES ABSOLUTE MAN 1.28 K/mm3 (0.84-5.20); LYMPHOCYTES PERCENT MAN 25 % (21-46); MONOCYTES ABSOLUTE MAN 0.71 K/mm3 (0.16-1.47); MONOCYTES PERCENT MAN 15 % (4-13); MYELOCYTE ABSOLUTE MAN 0.09 K/mm3 (0.00-0.00); MYELOCYTE PERCENT MAN 2 % (0-0); NEUTROPHILS ABSOLUTE MAN 2.32 K/mm3 (1.96-9.15); SEG NEUTROPHILS PERCENT MAN 46 % (41-73); TOTAL CELLS COUNTED 100
--- NOTE | 2024-10-18 04:29 | NUR ---
DR ESPINOZA NOTIFIED OF CRITICAL LAB VALUES AND LOW URINE OUTPUT. SEE ORDERS
[2024-10-18] MEDS ORDERED: NS 1,000 ML IV SCH (04:30)
--- NOTE | 2024-10-18 06:26 | NUR ---
SHIFT SUMMERY PT REMAINED INTUBATED W/ETT INTACT AND PATENT TO THE VENT, SEDATED. PT HAS BEEN SR ON THE DRYING MACHINE BACK TENDER. LEVOPHED TO MAINTAIN MAP >65, SEE [facility]. SHOEMAKER CATH INTACT PATENT AND DRAINING TO GRAVITY. OXYGEN SAT >92% W/NO DISTRESS NOTED THIS SHIFT. PT HAS HAD NO ACUTE CHANGES TO POC THIS SHIFT.
--- NOTE | 2024-10-18 09:03 | NUR ---
ASSUMED CARE AT 0700 PT LAYING IN BED SEDATED AND INTUBATED. HE IS SEDATED WITH PROPOFOL, VERSED, AND FENTANYL INFUSING; VERSED PLACED ON SB D/T RASS -3; DURING ASSESSMENT, RASS IS NOW +2 BUT HE IS OPENING EYES AND ANSWERING MINIMAL Y/N QUESTIONS, HE IS ALSO COUGHING AND FIGHTING AGAINST VENT; PRN ATIVAN GIVEN AND HELPUFL, PROPOFOL ALSO TITRATED UP, SEE FLOWSHEET FOR TITRATIONS; FENTANYL INFUSING AT 100MCG/HR. VENT SETTINGS AC/VC 18/500/5/35%. AFEBRILE. HR 60-70'S. SBP 100-120'S WITH LEVOPHED INFUSING AT 2MCG/MIN. PIVOT INFUSING VIA OG AT 50ML/HR (GOAL) WITH 30ML WATER FLUSHES Q4HR. SHOEMAKER IN PLACE WITH SMALL AMOUNT OF URINE OUTPUT. NS INFUSING AT 75ML/HR. SEE SHIFT ASSESSMENT FOR FULL ASSESSMENT.
[2024-10-18] MEDS ORDERED: OLANZapine 10 MG Vial IM ONE (12:00)
--- NOTE | 2024-10-18 12:17 | NUR ---
UPDATE/EXTUBATION PT PASSED SBT WITH PROPOFOL LOWERED. PROPOFOL THEN TURNED OFF AND AWAITED FOR PT TO BECOME MORE CLEAR. ONCE HE WAS CHAPARRO AND FOLLOWING DIRECTIONS, PT WAS EXTUBATED AT 1055 AND PLACED ON 3L NC. SHORTLY AFTERWARDS PT SPO2 DECREASED TO 80-85%, PT THEN PLACED ON BIPAP AFTER TITRATING NC UP TO 7L. BIPAP PLACED AT 1120 WITH SETTINGS 8/5, FIO2 40%, Vt 300-450. NEURO: PT IS FOLLOWING SOME DIRECTIONS AND LOOKING AROUND BUT CHALLENGING TO MAKE EYE CONTACT. NOT FORMING WORDS YET; SHOWING SIGNS OF HALLUCINATING, ONE DOSE OF ZYPREXA GIVEN. : SHOEMAKER SHOWING NO SIGNS OF OUTPUT THIS SHIFT; SHOEMAKER FLUSHED AND 350ML OUTPUT IMMEDIATLY. LAST GLUCOSE 408, COVERED IN EMAR AND DR KU NOTIFIED.
[2024-10-18] MEDS ORDERED: Protein Supplement 30 ML UD PT SCH ×2 (14:00→21:00)
[2024-10-18] MEDS ORDERED: dexmedeTOMIDine 100 ML IV SCH (14:30)
--- NOTE | 2024-10-18 14:30 | NUR ---
UPDATE PT WAS ABLE TO TAKE A 15MIN BREAK OFF BIPAP, PLACED BACK ON BIPAP WHEN SPO2 DECREASED TO MID 80'S. AFTER PLACING BACK ON, HE STARTED BECOMING MORE RESTLESS/AGITATED, CALL MADE TO DR KU AND NEW ORDER PROVIDED FOR PRECEDEX GTT TO BE STARTED.
[2024-10-18 14:58] LABS: Vancomycin, Trough 20.3 ug/mL (5.0-10.0)
[2024-10-18] MEDS ORDERED: LORazepam 2 MG/ML 1ML Injection IV PRN (15:35)
--- NOTE | 2024-10-18 17:59 | NUR ---
END OF SHIFT SUMMARY NO EVENTS SINCE LAST NOTE. PT STARTED ON PRECEDEX AND TITRATED UP TO 0.6MCG/KG/HR; PT NOT MAKING FULL WORDS AND REACHING OUT WITH HIS HANDS; CHALLENGING TO DO A CIWA SCORE BECAUSE UNABLE TO UNDERSTAND PT ANSWERS; HE IS FOLLOWING DIRECTIONS; PRN ATIVAN GIVEN ONCE. BIPAP SETTINGS 8/5, FIO2 40%; HE CAN TOLERATE BREAKS OFF THE BIPAP AND ON 5L NC FOR ABOUT 15MIN UNTIL HIS BREATH WAS MORE SHALLOW AND SPO2 DECREASED TO 85%. MAX TEMP 100.2. HR 60-100. SBP 90-130'S; LEVOPHED STOPPED AT 1020. CURRENTLY NPO. SHOEMAKER IN PLACE AND DRAINING TO GRAVITY SINCE FLUSHING SHOEMAKER. WILL REPORT TO PM RN WHEN AVAILABLE.
[2024-10-18] MEDS ORDERED: Vancomycin HCL 1,250 MG in NS 250 ML IV SCH (21:00)
[2024-10-18] MEDS ORDERED: Sevelamer Carbonate 800 MG Tab PT SCH (23:00)
[2024-10-19] VITALS (59 sets, daily range): BP systolic 101–151; BP diastolic 52–132
[2024-10-19 03:39] LABS: Hematocrit 21.1 % (37.0-53.0); Hemoglobin 7.3 g/dL (13.5-17.5); Mean Corpuscular HGB Conc 34.6 g/dL (31.5-36.5); Mean Corpuscular Volume 93 fL (80-100); RDW Standard Deviation 46.9 fL (35.1-46.3); Red Blood Cell Count 2.28 M/mm3 (4.30-5.90); White Blood Cell Count 5.04 K/mm3 (4.00-11.30)
[2024-10-19 03:51] LABS: Mean Platelet Volume 13.1 fL (9.1-12.4); Platelet Count 16 K/mm3 (150-400)
[2024-10-19 03:54] LABS: Bun/Creatinine Ratio 26.4 (12.0-20.0); Calcium, Blood 8.6 mg/dL (8.5-10.1); Creatinine, Blood 1.44 mg/dL (0.60-1.20); Potassium, Blood 5.1 mmol/L (3.5-5.5)
--- NOTE | 2024-10-19 05:15 | NUR ---
SHIFT SUMMERY PT HAS BEEN PERIODICALLY AGGRESIVE AND DELUSIONAL OVERNIGHT. MEDICATED PER EMAR. HE HAS BEEN SR-SB ON THE MEDIA ANALYST. BP WNL. AFEBRILE. SHOEMAKER CATHETER INTACT PATENT AND DRAINING TO GRAVITY. DR ESPINOZA NOTIFIED OF CRITICAL PLATLET COUNT. OXYGEN SAT >92%. PT IS DISORIENTED X4, UNABLE TO COMMUNCATE AND APPEARS TO HAVE HAD FREQUENT VISUAL HALLUCINATIONS
[2024-10-19] MEDS ORDERED: Levothyroxine Sodium 0.1 MG Tab PO SCH (06:00)
[2024-10-19] MEDS ORDERED: Sevelamer Carbonate 800 MG Tab PO SCH (08:30)
[2024-10-19] MEDS ORDERED: Insulin Glargine-Yfgn 100 Unit/mL 3 ML SYR SC SCH (09:00)
[2024-10-19] MEDS ORDERED: Ipratropium/Albuterol SulF 2.5-0.5MG/3 ML Amp INH SCH (12:00)
[2024-10-19] MEDS ORDERED: Thiamine HCl 100 MG in NS 50 ML IV SCH (12:00)
[2024-10-19] MEDS ORDERED: Folic Acid 1 MG in NS 50 ML IV SCH (12:00)
--- NOTE | 2024-10-19 18:39 | NUR ---
END OF SHIFT SUMMARY PT CONT TO BE SEDATED WITH PRECEDEX INFUSING AT 1MCG/KG/HR; SEVERAL DOSES OF ATIVAN GIVEN WHEN PT WAKES UP IN A PANIC; HE IS UNABLE TO BE REORIENTED AND REDIRECTED. TOLERATING 1L NC WELL; IS PLACED ON CPAP AFTER PANIC ATTACK TO HELP WITH VENTILATION. AFEBRILE. HR 50-60'S. SBP 110-120. CONT TO BE NPO. SHOEMAKER IN PLACE AND FLUSHED TWICE. WILL REPORT TO PM RN WHEN AVAILABLE.
[2024-10-19] MEDS ORDERED: OLANZapine 10 MG Vial IM ONE (23:30)
[2024-10-20] VITALS (31 sets, daily range): BP systolic 105–185; BP diastolic 38–121
[2024-10-20 03:21] LABS: Hematocrit 21.4 % (37.0-53.0); Hemoglobin 7.2 g/dL (13.5-17.5); Mean Corpuscular HGB 31.3 pg (26.0-34.0); Mean Corpuscular HGB Conc 33.6 g/dL (31.5-36.5); Mean Corpuscular Volume 93 fL (80-100); NRBC ABSOLUTE 0.52 K/mm3 (0.00-0.02); RDW Coefficient Variation 14.3 % (11.7-14.2); RDW Standard Deviation 48.7 fL (35.1-46.3)
[2024-10-20 03:34] LABS: Mean Platelet Volume 13.7 fL (9.1-12.4); Platelet Count 16 K/mm3 (150-400)
[2024-10-20 03:44] LABS: Albumin, Blood 2.6 g/dL (3.4-5.0); Albumin/Globulin Ratio 1.1 (0.8-1.8); Bilirubin, Total 0.5 mg/dL (0.1-1.0); Bun/Creatinine Ratio 33.1 (12.0-20.0); Calcium, Blood 8.7 mg/dL (8.5-10.1); Creatinine, Blood 1.3 mg/dL (0.60-1.20); Globulin, Blood 2.4 g/dL (2.2-4.0); Potassium, Blood 4.6 mmol/L (3.5-5.5)
[2024-10-20 04:19] LABS: BAND PERCENT MAN 4 % (0-8); BASOPHILS PERCENT MAN 0 % (0-2); BLASTS PERCENT MAN 4 % (0-0); EOSINOPHILS PERCENT MAN 0 % (0-6); LYMPHOCYTES % ATYPICAL MANUAL 1 % (0-0); LYMPHOCYTES ABSOLUTE MAN 1.61 K/mm3 (0.84-5.20); LYMPHOCYTES PERCENT MAN 30 % (21-46); MONOCYTES ABSOLUTE MAN 0.78 K/mm3 (0.16-1.47); MONOCYTES PERCENT MAN 15 % (4-13); MYELOCYTE PERCENT MAN 4 % (0-0); NEUTROPHILS ABSOLUTE MAN 2.39 K/mm3 (1.96-9.15); SEG NEUTROPHILS PERCENT MAN 42 % (41-73); TOTAL CELLS COUNTED 100
--- NOTE | 2024-10-20 05:36 | NUR ---
SHIFT SUMMERY PT HAS HAD FREQUENT PERIODS OF AGITIATION OVERNIGHT. PRECEDEX INFUSING, SEE [facility]. ATIVAN GIVEN, SEE EMAR. ONE TIME DOSE OF ZYPREXA WAS GIVEN WELL BUT WAS NOT HELPFUL. PT HAS BEEN SR/SB ON THE FELT MACHINE MECHANIC. BP WNL. HE HAS NOT BEEN ABLE TO COMMUNICATE HIS NEEDS OR FOLLOW DIRECTIONS, JUST PERIODS OF HYSTERICAL BEHAVIOR. AFEBRILE. OXYGEN SAT >92% ON ROOM AIR AT TIMES, OXY MASK AT TIMES. CRITICAL PLATLET COUNT CALLED TO DR ESPINOZA. NO NEW ORDERS AT THIS TIME.
--- NOTE | 2024-10-20 07:30 | NUR ---
CARE ASSUMPTION DURING BEDSIDE SHIFT REPORT Derik LEARY RN THE PT IS LYING IN BED WEARING CPAP OF 14 W 21% FIO2. PT W RASS -4 W PRECEDEX GTT AT 1 MCG/KG/HR. UPON ASSESSMENT PT IS MINIMALLY RESPONSIVE SO PRECEDEX GTT TITRATED DOWN, SEE FLOWSHEET FOR DETAILS. DR. CHACKO CAME TO BEDSIDE TO ASSESS THE PT. DR. CHACKO UPDATED ON PT'S NUERO STATUS. DR. CHACKO UPDATED ON PT'S CBG AND [address] CHACKO GIVING VERBAL INSTRUCTIONS TO GIVE 10 UNITS LANTUS INSTEAD OF THE 20 UNITS THAT IS ORDERED. PT TAKEN OFF OF CPAP MASK AND PLACED ON 2L OXYMASK IN ATTEMPT TO COMMUNICATE BETTER W HIM. PER DR. BECK WE WILL ATTEMPT TO AWAKEN THE PT'S TO GET IDEA OF WHETHER HE IS IN ETOH WITHDRAWLS OR JUST EXPERIENCING DELERIUM.
[2024-10-20] MEDS ORDERED: Insulin Human Lispro 100 Units/ML 3ML Syringe SC SCH (16:30)
--- NOTE | 2024-10-20 18:33 | NUR ---
DAY SHIFT SUMMARY PT'S PRECEDEX GTT TURNED OFF THIS AM AND PT AWOKE VERY CONFUSED BUT NOT COMBATIVE OR SHOWING ANY OBVIOUS ETOH WITHDRAWL SYMPTOMS. WHILE PARANOID AND CONFUSED THE PT HAS AKNOWLEDGED HIS OWN CONFUSION AT TIMES STATING "I AM NOT RIGHT IN THE MIND YET". PT REASSURED THAT HE IS IN A SAFE PLACE THAT HE WAS GIVEN FULL ACOUNT OF EVENTS THAT LED TO HIS HOSPITALIZATION UP TO THIS POINT. SPO2 >92% ON 2L NC. BP WNL AND STABLE. MONITOR SHOWING SR 90'S THIS SHIFT AFTER PRECEDEX INDUCED BRADYCARDIA WORE OFF. PT PASSING BEDSIDE SWALLOW EVAL AND TOLERATED PO DINNER WELL. PT UP IN THE CHAIR FOR MOST OF THE AFTERNOON. WILL REPORT TO ONCOMING RN.
[2024-10-20] MEDS ORDERED: Ondansetron HCl 2 MG / ML 2ML Vial IV PRN (20:45)
[2024-10-20] MEDS ORDERED: Acetaminophen 500 MG Tab PO PRN (23:20)
[2024-10-21] VITALS (21 sets, daily range): BP systolic 98–197; BP diastolic 48–100
[2024-10-21 03:37] LABS: Hematocrit 20.5 % (37.0-53.0); Mean Corpuscular HGB 31.4 pg (26.0-34.0); Mean Corpuscular HGB Conc 34.1 g/dL (31.5-36.5); Mean Corpuscular Volume 92 fL (80-100); NRBC ABSOLUTE 0.54 K/mm3 (0.00-0.02); NRBC Auto 12.2 /100 WBC (0.0-0.2); RDW Coefficient Variation 13.9 % (11.7-14.2); RDW Standard Deviation 46.5 fL (35.1-46.3); Red Blood Cell Count 2.23 M/mm3 (4.30-5.90); White Blood Cell Count 4.43 K/mm3 (4.00-11.30)
[2024-10-21 03:47] LABS: Platelet Count 17 K/mm3 (150-400)
[2024-10-21] MEDS ORDERED: QUEtiapine Fumarate 25 MG Tab PO ONE (03:55)
[2024-10-21 04:08] LABS: Bun/Creatinine Ratio 29.5 (12.0-20.0); Calcium, Blood 8.5 mg/dL (8.5-10.1); Creatinine, Blood 1.05 mg/dL (0.60-1.20); Magnesium, Blood 1.8 mg/dL (1.6-2.4); Phosphorus, Blood 5.6 mg/dL (2.5-4.9); Potassium, Blood 4.1 mmol/L (3.5-5.5)
[2024-10-21 05:04] LABS: BAND PERCENT MAN 1 % (0-8); BASOPHILS ABSOLUTE MAN 0.04 K/mm3 (0.00-0.23); BASOPHILS PERCENT MAN 1 % (0-2); BLASTS PERCENT MAN 2 % (0-0); EOSINOPHILS ABSOLUTE MAN 0.04 K/mm3 (0.00-0.68); EOSINOPHILS PERCENT MAN 1 % (0-6); LYMPHOCYTES PERCENT MAN 43 % (21-46); METAMYELOCYTE ABSOLUTE MAN 0.04 K/mm3 (0.00-0.00); METAMYELOCYTE PERCENT MAN 1 % (0-0); MONOCYTES ABSOLUTE MAN 0.93 K/mm3 (0.16-1.47); MONOCYTES PERCENT MAN 21 % (4-13); MYELOCYTE ABSOLUTE MAN 0.08 K/mm3 (0.00-0.00); MYELOCYTE PERCENT MAN 2 % (0-0); NEUTROPHILS ABSOLUTE MAN 1.28 K/mm3 (1.96-9.15); SEG NEUTROPHILS PERCENT MAN 28 % (41-73); TOTAL CELLS COUNTED 100
--- NOTE | 2024-10-21 06:00 | NUR ---
END OF SHIFT: THIS PT DID NOT SLEEP AT ALL OVERNIGHT DESPITE GETTING SEROQUEL AND ATIVAN FOR AGITATION/INSOMNIA. HE WAS MOSTLY PARANOID AND SKEPTICAL OF HIS CARE AND WHERE HE WAS FOR THE DURATION OF THE NIGHT. HE IS ABLE TO RECITE HIS NAME AND THE YEAR, BUT DOES NOT BELIEVE HE IS IN THE HOSPITAL. BP AND HR HAVE BEEN WNL THROUGHOUT THE NIGHT, AND O2 SATS HAVE BEEN 90% AND ABOVE WITH 2L NC. NO ACUTE EVENTS OCCURRED AND PRECEDEX GTT HAS REMAINED OFF.
[2024-10-21 06:33] LABS: Albumin, Blood 2.7 g/dL (3.4-5.0); Albumin/Globulin Ratio 1.1 (0.8-1.8); Bilirubin, Total 0.5 mg/dL (0.1-1.0); Globulin, Blood 2.5 g/dL (2.2-4.0); Total Protein, Blood 5.2 g/dL (6.4-8.2)
[2024-10-21] MEDS ORDERED: FentaNYL Citrate 50 MCG/ML 2 ML Injection IV ONE (08:55)
[2024-10-21] MEDS ORDERED: TraZODone HCl 50 MG Tab PO PRN (09:15)
[2024-10-21] MEDS ORDERED: TraMADol HCl 50 MG Tab PO PRN (09:40)
[2024-10-21] MEDS ORDERED: Ibuprofen 400 MG Tab PO PRN (09:40)
[2024-10-21 10:20] LABS: Hematocrit 20.8 % (37.0-53.0); Hemoglobin 7.1 g/dL (13.5-17.5)
[2024-10-21] MEDS ORDERED: Albuterol 2.5 MG/3 ML VIAL INH PRN (13:25)
[2024-10-21] MEDS ORDERED: Ipratropium/Albuterol SulF 2.5-0.5MG/3 ML Amp INH SCH (14:00)
[2024-10-21] MEDS ORDERED: LORazepam 2 MG/ML 1ML Injection ONE (17:06)
[2024-10-21] MEDS ORDERED: LORazepam 2 MG/ML 1ML Injection IV ONE (17:10)
[2024-10-21 17:19] LABS: Hematocrit 22.5 % (37.0-53.0); Hemoglobin 7.6 g/dL (13.5-17.5); Mean Corpuscular HGB 31.5 pg (26.0-34.0); Mean Corpuscular HGB Conc 33.8 g/dL (31.5-36.5); Mean Corpuscular Volume 93 fL (80-100); NRBC ABSOLUTE 0.84 K/mm3 (0.00-0.02); NRBC Auto 9.8 /100 WBC (0.0-0.2); RDW Standard Deviation 47.3 fL (35.1-46.3); Red Blood Cell Count 2.41 M/mm3 (4.30-5.90); White Blood Cell Count 8.54 K/mm3 (4.00-11.30)
[2024-10-21 17:20] LABS: PCO2 Arterial 48.1 mmHg (35-45); PO2 Arterial 365 mmHg (80-100); pH Blood Arterial 7.33 (7.35-7.45)
[2024-10-21 17:37] LABS: Platelet Count 17 K/mm3 (150-400)
[2024-10-21 17:39] LABS: Vancomycin, Trough 11.1 ug/mL (5.0-10.0)
[2024-10-21 17:43] LABS: Albumin, Blood 3.2 g/dL (3.4-5.0); Albumin/Globulin Ratio 1.1 (0.8-1.8); Bilirubin, Total 0.6 mg/dL (0.1-1.0); Bun/Creatinine Ratio 21.6 (12.0-20.0); Calcium, Blood 9.2 mg/dL (8.5-10.1); Creatinine, Blood 0.93 mg/dL (0.60-1.20); Globulin, Blood 2.8 g/dL (2.2-4.0); Potassium, Blood 3.7 mmol/L (3.5-5.5); Prolactin 33.3 ng/mL (2.5-17.4)
[2024-10-21 17:49] LABS: BAND PERCENT MAN 1 % (0-8); BASOPHILS PERCENT MAN 0 % (0-2); BLASTS PERCENT MAN 6 % (0-0); EOSINOPHILS PERCENT MAN 0 % (0-6); LYMPHOCYTES ABSOLUTE MAN 4.35 K/mm3 (0.84-5.20); LYMPHOCYTES PERCENT MAN 51 % (21-46); METAMYELOCYTE ABSOLUTE MAN 0.08 K/mm3 (0.00-0.00); METAMYELOCYTE PERCENT MAN 1 % (0-0); MONOCYTES ABSOLUTE MAN 0.42 K/mm3 (0.16-1.47); MONOCYTES PERCENT MAN 5 % (4-13); MYELOCYTE ABSOLUTE MAN 0.51 K/mm3 (0.00-0.00); MYELOCYTE PERCENT MAN 6 % (0-0); NEUTROPHILS ABSOLUTE MAN 2.64 K/mm3 (1.96-9.15); SEG NEUTROPHILS PERCENT MAN 30 % (41-73); TOTAL CELLS COUNTED 100
--- NOTE | 2024-10-21 18:54 | NUR ---
DAY SHIFT SUMMARY/RESPIRATORY CODE PT'S MENTATION WAS MUCH IMPROVED TODAY FROM PREVIOUS DAYSHIFT HE WAS ABLE TO CARRY OUT CONVERSATIONS AND BE REDIRECTABLE. PT UP IN THE CHAIR FOR MOST OF THE DAY TOLERATING PO INTAKE. PT'S SPO2 >92% ON 2L NC. MARI ELEVATED THIS SHIFT W DEPENDING ON PT'S LEVEL OF ANXIETY. PT AFWEBRILE. PT'S PUREWICK INTACT W [employer] OUTPUT THIS SHIFT. RESP CODE- APPROX 1640 PT BEGAN HAING C/O FEELING SOB REQUESTING A BREATHING TX. RT PORSCHE AT BEDSIDE AND PT STARTED ON NEBULIZED BREATHING TX. APPROX 1644 PT CONTINUED TO RAMP UP ABOUT HIS DYSPNEA NOW TACHYCARDICA AND ASSISTED TO THE EDGE OF THE CHAIR TO TRIPOD, PT ON 10 O2 AT THIS TIME W NEBULIZER MASK. PT THEN BEGAN TO DROP SPO2 LEVEL RAPIDLY. LS ASSESSMENT COMNPLETELY DIM W PT NOT MOVING ANY AIR. PT THEN BECAME BRADYCARDIC INTO THE 40'S AND BECAME UNRESPONSIVE. PT BAGGED AND CODE BLUE CALLED OVERHEAD. PT QUICKLY REGAINED SOME DIMINISHED CONSCIOUSNESS AND HR RETURNED TO 130'S. PT PLACED BACK ON BIPAP AND SLOWLY REGAINED FULL CONSCIOUSNESS. LABS DRAWN AND CHEST XRAY OBTAINED. PT NOW AGAIN FULLY ALERT AND BACK ON 2L NC. PT'S FAMILY UPDATED ON SITUATION AND PT'S CURRENT STATUS. WILL REPORT TO ONCOMING RN.
--- NOTE | 2024-10-21 19:09 | NUR ---
PALLIATIVE CARE NOTE: RESPONDED TO RAPID RESPONSE TO PT ROOM. PROVIDED STANDBY SUPPORT. PT ON BIPAP AT THIS TIME. MET WITH BROTHER IN LAW OUT IN WAITING AREA. PROVIDED MORAL AND EMOTIONAL SUPPORT.
--- NOTE | 2024-10-21 21:36 | NUR ---
ASSUME CARE: BEDSIDE REPORT RECIEVED FROM DAYSHIFT RN. PT ALERT AND ORIENTED TO SELF, PERSON, AND YEAR. PT CONFUSED ON PLACE AND SITUATION. SPO2>95% ON 2 L NC, DOES NOT COMPLAIN OF SOB AT THIS TIME. SBP 140s-150s, MAP>65. PT DENIES CP OR PRESSURE. MONITOR SHOWS SINUS RYTHM TO SINUS TACH 90s-100s. PT ABLE TO REPOSITION SELF IN BED. MALE PUREWICK IN PLACE DRAINING TO SUCTION. BED ALARM ON AND CALL LIGHT IN REACH. WILL UPDATE NEEDED.
[2024-10-22] VITALS (46 sets, daily range): BP systolic 83–154; BP diastolic 46–86
[2024-10-22] MEDS ORDERED: LORazepam 2 MG/ML 1ML Injection IV PRN (01:40)
[2024-10-22] MEDS ORDERED: dexmedeTOMIDine 100 ML IV SCH (02:05)
--- NOTE | 2024-10-22 02:22 | NUR ---
UPDATE: AT 0200 PT STARTED CALLING OUT, WHEN THIS RN WENT INTO THE ROOM PT WAS TRYING TO GET OUT OF BED STATING HE "NEEDED TO FIND HIS CAR." WHEN ATTEMPTED TO REORIENT THE PT TO CURRENT SITUATION, THE PT WANTED TO CALL HIS SISTER OR BROTHER IN LAW. PT KEPT ATTEMPTING TO GET OUT OF BED TO GET HIS STUFF AND HIS CAR AND WAS VERY ANXIOUS. PT STARTED BREATHING HARD, SPO2 DESAT TO 70-80%, RT WAS CALLED FOR BREATHING TREATMENT AND BIPAP PLACED, SPO2>90%. PT STILL VERY ANXIOUS, ORDERS GIVEN, PRECEDEX GTT STARTED, SEE FLOWSHEET FOR TITRATIONS. PT STILL VERY ANXIOUS AND WORRIED ABOUT GOING HOME, "BECAUSE HE HAS STUFF TO DO." PT KEEPS TRYING TO GET OUT OF BED, AND STARTED HITTING AND KICKING AT STAFF. WILL UPDATE NEEDED.
[2024-10-22 03:49] LABS: Hematocrit 19.8 % (37.0-53.0); Hemoglobin 6.7 g/dL (13.5-17.5); Mean Corpuscular HGB 31.5 pg (26.0-34.0); Mean Corpuscular HGB Conc 33.8 g/dL (31.5-36.5); Mean Corpuscular Volume 93 fL (80-100); Mean Platelet Volume 12.5 fL (9.1-12.4); NRBC ABSOLUTE 0.42 K/mm3 (0.00-0.02); NRBC Auto 7.8 /100 WBC (0.0-0.2); RDW Standard Deviation 47.6 fL (35.1-46.3); Red Blood Cell Count 2.13 M/mm3 (4.30-5.90); White Blood Cell Count 5.38 K/mm3 (4.00-11.30)
[2024-10-22 03:53] LABS: Platelet Count 16 K/mm3 (150-400)
[2024-10-22 04:05] LABS: Bun/Creatinine Ratio 18.9 (12.0-20.0); Calcium, Blood 8.3 mg/dL (8.5-10.1); Creatinine, Blood 0.95 mg/dL (0.60-1.20); Potassium, Blood 3.9 mmol/L (3.5-5.5)
[2024-10-22 04:42] LABS: BAND PERCENT MAN 4 % (0-8); BASOPHILS PERCENT MAN 0 % (0-2); BLASTS PERCENT MAN 3 % (0-0); EOSINOPHILS PERCENT MAN 0 % (0-6); LYMPHOCYTES ABSOLUTE MAN 1.93 K/mm3 (0.84-5.20); LYMPHOCYTES PERCENT MAN 36 % (21-46); METAMYELOCYTE ABSOLUTE MAN 0.16 K/mm3 (0.00-0.00); METAMYELOCYTE PERCENT MAN 3 % (0-0); MONOCYTES ABSOLUTE MAN 0.75 K/mm3 (0.16-1.47); MONOCYTES PERCENT MAN 14 % (4-13); MYELOCYTE ABSOLUTE MAN 0.21 K/mm3 (0.00-0.00); MYELOCYTE PERCENT MAN 4 % (0-0); NEUTROPHILS ABSOLUTE MAN 2.15 K/mm3 (1.96-9.15); SEG NEUTROPHILS PERCENT MAN 36 % (41-73); TOTAL CELLS COUNTED 100
--- NOTE | 2024-10-22 05:15 | NUR ---
SHIFT SUMMARY: PT ALERT AND ORIENTED TO SELF ONLY, RASS -1 TO +3, PRECEDEX GTT INFUSING, SEE FLOWSHEET FOR TITRATIONS. PT STILL ATTEMPTS TO PULL AT RESTRAINTS AND GET OUT OF BED AT TIMES, PT REORIENTED MULTIPLE TIMES. SPO2>90% ON 3L NC, ALL OTHER VSS. WILL REPORT TO ONCOMING RN.
--- NOTE | 2024-10-22 08:52 | NUR ---
MAD consult request received and processed. Medical history, social matrix, and clinical trajectory reviewed with nursing. The principals agitation is reportedly of organic etiology i.e. 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 If the problematic behavior continues after clinical stabalization, please re-consult.
[2024-10-22] MEDS ORDERED: Losartan Potassium 25 MG Tab PO SCH (09:00)
[2024-10-22] MEDS ORDERED: AmLODIPine Besylate 5 MG Tab PO SCH (09:00)
[2024-10-22 11:10] LABS: Hematocrit 24.4 % (37.0-53.0); Hemoglobin 8.2 g/dL (13.5-17.5)
--- NOTE | 2024-10-22 13:04 | NUR ---
Spiritual Care Visit. Pt. is awake and welcomes my visit. This rail car driver had met the Pts. sister during rounding but there were no visitors present whan I visited. Pt. is generally pleasant, but was in the midst of a breathing treatment. Facilitated a short life review. Prayed with Pt. Pt. verbalzied gratitude for the spiritual care visit.
[2024-10-22] MEDS ORDERED: Vancomycin HCL 750 MG in NS 250 ML IV SCH (14:00)
[2024-10-22 17:39] LABS: International Normalized Ratio 1.29; Prothrombin Time Results 13.5 Sec (9.7-11.5)
--- NOTE | 2024-10-22 18:41 | NUR ---
END OF SHIFT SUMMARY PRECEDEX TURNED OFF AT 0930 AND PT BECAME A/O X4 AND ABLE TO MAKE HIS NEEDS KNOWN; HE WAS COOPERATIVE AND PARTICIPATED WITH CARE; SPENT A FEW HOURS IN THE RECLINER; NO ATIVAN GIVEN THIS SHIFT. SPO2 >93% ON ON 3L NC. HR 70-90'S. SBP 120-130'S. GOOD APPETITE WITH LUNCH AND DINNER; NO BM THIS SHIFT. HE IS IMPROVING USING THE CALL LIGHT TO USE URINAL. WILL REPORT TO PM RN WHEN AVAILABLE.
--- NOTE | 2024-10-22 19:56 | NUR ---
ASSUME CARE: PT A/Ox4 AND APPEARS MORE COOPERATIVE AND ORIENTED TONIGHT, ABLE TO MAKE NEEDS KNOWN. VSS, SPO2>95% ON 3L NC. WILL UPDATE NEEDED.
[2024-10-22] MEDS ORDERED: Lactobacil 2-S.Thermo-Bifido 1 1 Cap PO SCH (21:00)
[2024-10-23] VITALS (21 sets, daily range): BP systolic 95–157; BP diastolic 42–101
--- NOTE | 2024-10-23 00:45 | NUR ---
UPDATE: AT AROUND 0000 PT USED HIS CALL LIGHT TO USE THE URINAL, PT STARTED GETTING AGITATED AND ANXIOUS STATING "HE CAN'T DO THIS" AND TRIED TO GET OUT OF BED, PT STARTED TO BECOME TACHYPNEIC AND DESAT TO 45-60%. BIPAP APPLIED AND BREATHING TREATMENT GIVEN. RESPIRATORY CODE CALLED, PT STARTED TO RECOVER SPO2 BACK UP TO 90%, RESPIRATORY CODE CANCELLED. PT MEDICATED PER EMAR FOR ANXIETY. PT NOW ON BIPAP LAYING CALMLY IN BED AND ABLE TO BE REDIRECTED. SPO2>90%. VSS. WILL UPDATE NEEDED.
[2024-10-23 05:01] LABS: Hematocrit 21.4 % (37.0-53.0); Hemoglobin 7.3 g/dL (13.5-17.5); Mean Corpuscular HGB 31.6 pg (26.0-34.0); Mean Corpuscular HGB Conc 34.1 g/dL (31.5-36.5); Mean Corpuscular Volume 93 fL (80-100); NRBC ABSOLUTE 0.54 K/mm3 (0.00-0.02); NRBC Auto 8.9 /100 WBC (0.0-0.2); RDW Coefficient Variation 14.6 % (11.7-14.2); RDW Standard Deviation 48.9 fL (35.1-46.3); Red Blood Cell Count 2.31 M/mm3 (4.30-5.90); White Blood Cell Count 6.05 K/mm3 (4.00-11.30)
[2024-10-23 05:11] LABS: Mean Platelet Volume 13.4 fL (9.1-12.4)
[2024-10-23 05:12] LABS: Platelet Count 18 K/mm3 (150-400)
[2024-10-23 05:17] LABS: Bun/Creatinine Ratio 19.5 (12.0-20.0); Calcium, Blood 8.5 mg/dL (8.5-10.1); Creatinine, Blood 0.97 mg/dL (0.60-1.20); Magnesium, Blood 1.8 mg/dL (1.6-2.4); Phosphorus, Blood 3.5 mg/dL (2.5-4.9); Potassium, Blood 4.1 mmol/L (3.5-5.5)
--- NOTE | 2024-10-23 05:24 | NUR ---
SHIFT SUMMARY: PT CONTINUES TO BE A/Ox4 AND FOLLOW COMMANDS. SPO2>90% ON 6L NC. ALL OTHER VSS. MONITOR SHOWS SINUS RYTHM TO SINUS TACH, RATE 80s-100s. PT DENIES CP OR PRESSURE. PT ATTEMPTS TO USE URINAL WITH ASSISTANCE, BUT HAS BEEN INCONTINENT OF BOWEL AND URINE T/O THE NIGHT, ATTENDS IN PLACE. CALL LIGHT IN REACH AND BED ALARM ON. WILL REPORT TO ONCOMING RN.
[2024-10-23 05:33] LABS: BAND PERCENT MAN 8 % (0-8); BASOPHILS PERCENT MAN 0 % (0-2); BLASTS PERCENT MAN 5 % (0-0); EOSINOPHILS PERCENT MAN 0 % (0-6); LYMPHOCYTES PERCENT MAN 43 % (21-46); METAMYELOCYTE ABSOLUTE MAN 0.24 K/mm3 (0.00-0.00); METAMYELOCYTE PERCENT MAN 4 % (0-0); MONOCYTES ABSOLUTE MAN 0.54 K/mm3 (0.16-1.47); MONOCYTES PERCENT MAN 9 % (4-13); MYELOCYTE ABSOLUTE MAN 0.12 K/mm3 (0.00-0.00); MYELOCYTE PERCENT MAN 2 % (0-0); NEUTROPHILS ABSOLUTE MAN 2.23 K/mm3 (1.96-9.15); SEG NEUTROPHILS PERCENT MAN 29 % (41-73); TOTAL CELLS COUNTED 100
[2024-10-23] MEDS ORDERED: ClonazePAM 0.5 MG Tab PO SCH (10:29)
[2024-10-23] MEDS ORDERED: LevETIRAcetam 500 MG Tab PO SCH (15:00)
--- NOTE | 2024-10-23 19:36 | NUR ---
ASSUMED CARE AT 1900 PATIENT IS ALERT AND ORIENTED X4, FOLLOWS COMMANDS. DENIES ANXIETY AT THIS TIME. SP02 94% ON 2L VIA NC, LS DIMINISHED THROUGHOUT. STRONG COUGH. HR SR 80s, BP STABLE. DENIES CP/PRESSURE. ATTENDS IN PLACE FOR OCCASIONAL INCONTINENCE, PATIENT ABLE TO USE URINAL. INDEPENDENT WITH REPOSITIONING, ASSISTANCE NEED. SCDs IN PLACE. CALL LIGHT IN REACH. SEE SHIFT ASSESSMENT FOR MORE INFORMATION.
[2024-10-24] VITALS (25 sets, daily range): BP systolic 91–159; BP diastolic 45–88
--- NOTE | 2024-10-24 05:25 | NUR ---
SHIFT SUMMARY: PT A/Ox4 T/O THE NIGHT, PT DID NOT GET MUCH SLEEP BECAUSE HE SAID HE HAD TOO MUCH ENERGY. PT ATTEMPTS TO GET OUT OF BED MULTIPLE TIMES AND IS VERY IMPULSIVE. PT ASSISTED MULTIPLE TIMES TO BEDSIDE COMMODE AND IS NOTED TO BE VERY UNSTEADY ON HIS FEET. PT ALMOST FELL OVER TRYING TO GET TO COMMODE WITHOUT FOLLOWING DIRECTIONS. BED ALARM ON AND SITTER AT BEDSIDE FOR REDIRECTION AND SAFETY AT THIS TIME. VSS, SPO2>90% ON 3L NC. WILL REPORT TO ONCOMING RN.
[2024-10-24 06:47] LABS: Hematocrit 23.1 % (37.0-53.0); Hemoglobin 7.7 g/dL (13.5-17.5); Mean Corpuscular HGB 31.4 pg (26.0-34.0); Mean Corpuscular HGB Conc 33.3 g/dL (31.5-36.5); Mean Corpuscular Volume 94 fL (80-100); NRBC Auto 5.2 /100 WBC (0.0-0.2); RDW Coefficient Variation 14.4 % (11.7-14.2); RDW Standard Deviation 50.2 fL (35.1-46.3); Red Blood Cell Count 2.45 M/mm3 (4.30-5.90); White Blood Cell Count 7.71 K/mm3 (4.00-11.30)
[2024-10-24 06:54] LABS: Platelet Count 24 K/mm3 (150-400)
[2024-10-24 07:06] LABS: Bun/Creatinine Ratio 15.8 (12.0-20.0); Calcium, Blood 8.8 mg/dL (8.5-10.1); Creatinine, Blood 0.89 mg/dL (0.60-1.20); Potassium, Blood 3.6 mmol/L (3.5-5.5)
[2024-10-24 07:35] LABS: EOSINOPHILS PERCENT MAN 0 % (0-6)
[2024-10-24 07:39] LABS: BAND PERCENT MAN 1 % (0-8); BASOPHILS ABSOLUTE MAN 0.15 K/mm3 (0.00-0.23); BASOPHILS PERCENT MAN 2 % (0-2); BLASTS PERCENT MAN 6 % (0-0); LYMPHOCYTES % ATYPICAL MANUAL 2 % (0-0); LYMPHOCYTES ABSOLUTE MAN 2.31 K/mm3 (0.84-5.20); LYMPHOCYTES PERCENT MAN 28 % (21-46); METAMYELOCYTE ABSOLUTE MAN 0.53 K/mm3 (0.00-0.00); METAMYELOCYTE PERCENT MAN 7 % (0-0); MONOCYTES ABSOLUTE MAN 1.69 K/mm3 (0.16-1.47); MONOCYTES PERCENT MAN 22 % (4-13); NEUTROPHILS ABSOLUTE MAN 2.54 K/mm3 (1.96-9.15); SEG NEUTROPHILS PERCENT MAN 32 % (41-73); TOTAL CELLS COUNTED 100
[2024-10-24] MEDS ORDERED: Melatonin 5 MG Tablet PO PRN (08:40)
--- NOTE | 2024-10-24 10:15 | NUR ---
1015 PT REQUESTED ASSISTANCE TO COMMODE. PT BECAME ANXIOUS AND EXHIBITED SOB, DYSPNEA, ACCESSORY MUSCLE USE, AND TACHYPNEA. 02 80-92% ON 2L NC. ASSISTED PT TO RECLINER. PT CONTINUED TO PRESENT ANXIOUS AND SOB. PLACED PT ON BIPAP AND ADMINISTERED ATIVAN. PT O2 SATS >92% ON BIPAP. PT SOB AND ANXIETY IMPROVED. PT IS IN RECLINER WITH WARM BLANKETS AND CALL LIGHT WITHIN REACH.
--- NOTE | 2024-10-24 18:08 | NUR ---
0730 PT STATED THAT "I DID NOT GET ANY SLEEP LAST NIGHT AND I AM EXHAUSTED." AFTER BREAKFAST PT REQUESTED ASSISTANCE TO COMMODE AND HAD A BM. ASSISTED PT INTO RECLINER. PT BECAME SOB, DYSPNEIC, ANXIOUS, AND USED ACCESSORY MUSCLES. PT ORIGINALLY WAS ON 2L NC THEN MOVED TO BIPAP. AFTER PLACING BIPAP AND ADMINISTERING ATIVAN PT SOB AND ANXIETY REDUCED. PT WAS ABLE TO SLEEP. PT HAS CONTINUED TO REST FOR THE REMAINDER OF SHIFT AND WAS TRANSFERRED BACK TO BED AT 1300. PT HAD A SITTER AT BEGINNNING OF SHIFT AND SITTER WAS REMOVED AT 1600. PT IS STILL WEARING BIPAP AT END OF SHIFT WITH A RATE OF 18, FIO2 OF 40% AND 14/8 IPAP/EPAP
[2024-10-24 19:30] LABS: PCO2 Arterial 92.3 mmHg (35-45); PO2 Arterial 370 mmHg (80-100); pH Blood Arterial 7.08 (7.35-7.45)
[2024-10-24] MEDS ORDERED: NS 1,000 ML IV SCH (19:30)
[2024-10-24] MEDS ORDERED: propofoL 100 ML IV SCH (19:35)
--- NOTE | 2024-10-24 19:46 | NUR ---
Call placed to Dr Braun to notify that pt in ICU previously seen by industrial roofer helper service experienced a respiratory arrest that included pulsatile wide complex QRS with rate 220+ that received one defibrillation of 120 J. Provider to be notified of lab results.
[2024-10-24] MEDS ORDERED: Cetylpyridinium Chloride 1 EA MISC MT SCH (20:00)
[2024-10-24 20:01] LABS: Hematocrit 24.3 % (37.0-53.0); Hemoglobin 7.6 g/dL (13.5-17.5); Mean Corpuscular HGB 30.8 pg (26.0-34.0); Mean Corpuscular HGB Conc 31.3 g/dL (31.5-36.5); Mean Corpuscular Volume 98 fL (80-100); NRBC ABSOLUTE 0.62 K/mm3 (0.00-0.02); NRBC Auto 5.7 /100 WBC (0.0-0.2); RDW Coefficient Variation 14.6 % (11.7-14.2); RDW Standard Deviation 51.9 fL (35.1-46.3); Red Blood Cell Count 2.47 M/mm3 (4.30-5.90); White Blood Cell Count 10.96 K/mm3 (4.00-11.30)
[2024-10-24 20:03] LABS: Platelet Count 24 K/mm3 (150-400)
[2024-10-24] MEDS ORDERED: Piperacillin/Tazobactam Sod 4.5 GM in NS 100 ML IV SCH (20:35)
[2024-10-24 20:43] LABS: Albumin, Blood 3.1 g/dL (3.4-5.0); Albumin/Globulin Ratio 1.1 (0.8-1.8); Bilirubin, Total 0.5 mg/dL (0.1-1.0); Bun/Creatinine Ratio 15.5 (12.0-20.0); Calcium, Blood 9.6 mg/dL (8.5-10.1); Creatinine, Blood 0.9 mg/dL (0.60-1.20); Globulin, Blood 2.7 g/dL (2.2-4.0); Phosphorus, Blood 6.2 mg/dL (2.5-4.9); Total Protein, Blood 5.8 g/dL (6.4-8.2)
[2024-10-24] MEDS ORDERED: FentaNYL Citrate 50 MCG/ML 2 ML Injection IV PRN ×2 (20:45→21:35)
[2024-10-24 20:46] LABS: Magnesium, Blood 6.8 mg/dL (1.6-2.4)
[2024-10-24] MEDS ORDERED: levETIRAcetam 500 MG in NS 100 ML IV SCH (21:00)
[2024-10-24] MEDS ORDERED: Midazolam HCl 1MG / ML 2ML Vial IV PRN (21:30)
[2024-10-24 21:51] LABS: PO2 Arterial 82.9 mmHg (80-100); pH Blood Arterial 7.39 (7.35-7.45)
[2024-10-24 21:58] LABS: BAND PERCENT MAN 6 % (0-8); BASOPHILS PERCENT MAN 0 % (0-2); BLASTS PERCENT MAN 4 % (0-0); EOSINOPHILS PERCENT MAN 0 % (0-6); LYMPHOCYTES % ATYPICAL MANUAL 2 % (0-0); LYMPHOCYTES ABSOLUTE MAN 5.58 K/mm3 (0.84-5.20); LYMPHOCYTES PERCENT MAN 49 % (21-46); MONOCYTES ABSOLUTE MAN 1.09 K/mm3 (0.16-1.47); MONOCYTES PERCENT MAN 10 % (4-13); MYELOCYTE PERCENT MAN 1 % (0-0); NEUTROPHILS ABSOLUTE MAN 3.72 K/mm3 (1.96-9.15); SEG NEUTROPHILS PERCENT MAN 28 % (41-73); TOTAL CELLS COUNTED 100
[2024-10-24] MEDS ORDERED: Lactated Ringer's 500 ML IV ONE (22:45)
--- NOTE | 2024-10-24 23:45 | NUR ---
ASSUMPTION OF CARE/CODE BLUE THIS RN TO ROOM AT CHANGE OF SHIFT, MULTIPLE STAFF MEMBERS INCLUDING PRIMARY DAYSHIFT RN AND RT IN ROOM WITH PT. PT ON BIPAP, RR IN THE 30'S, OXYGEN SATURATION DOWN INTO THE 50'S, RT SWITCHED TO BAGGING THE PT. PT HR 170'S SIT, CONVERTED TO VTACH. CODE BLUE CALLED PADS PLACED ON PT. 1908: CODE BLUE CALLED 1911: VTACH, SHOCKED WITH 120 JONATHAN. 1915: 2O ETOMIDATE, 70 ROCURONIUM ADMINISTERED 1917: PT INTUBATED WITH 8.0 TUBE, 23 @ TEETH, + COLOR CHANGE 1918: 2GM MAG GIVEN. 1925: 500ML BOLUS NS GIVEN SEE CODE BLUE SHEET IN PT PHYSICAL SHART FOR MORE INFORMATION. CHEST X-RAY OBTAINED AND READ BY , ORDERS TO ADVANCE THE ETT TUBE, ETT TUBE NOW 25 @ TEETH PER RT. PT FAMILY TO BEDSDIE, INFORMED OF EVENTS. PT NOW INTUBATED AND SEDATED. PROPOFOL INFUSING AT 50MCG/KG/MIN. PT RESTLESS, MOVING ALL EXTREMITIES, PULLING AT RESTRAINTS, TURNING HEAD SIDE TO SIDE. PT GIVEN MULTIPLE PRN'S PER EMAR TO ASSIST WITH SEDATION WITH MINIMAL EFFECT. PT DOES NOT FOLLOW DIRECTION WHEN PROMPTED. HR 80'S SINUS, SBP 90-140'S. PT BREIFLY HYPOTENSIVE, GIVEN 500ML BOLUS OF LR PER DR. CABRERA, MAP NOW >65. VENT SETTINGS AC/VC 20/500/8/40%, OXYGEN SATURATION >95%. ABDOMEN SOFT, BOWEL TONES ACTIVE THROUGHOUT. OG TUBE IN PLACE CLAMPED. TEMP SHOEMAKER PLACED WITH YELLOW OUTPUT. PIV IN PLACE TO LEFT HAND, LFA AND R WRIST. NS INFUSING AT 100MLS/HR. BED IN LOWEST POSITION, CARE CONTINUES.
[2024-10-24] MEDS ORDERED: Ipratropium/Albuterol SulF 2.5-0.5MG/3 ML Amp INH SCH (23:55)
[2024-10-25] VITALS (100 sets, daily range): BP systolic 86–138; BP diastolic 38–95
[2024-10-25] MEDS ORDERED: Hydrogen Peroxide 1.5 % Solution MT SCH
[2024-10-25] MEDS ORDERED: Insulin Human Lispro 100 Units/ML 3ML Syringe SC SCH
[2024-10-25] MEDS ORDERED: Lactated Ringer's 500 ML IV ONE (00:10)
[2024-10-25] MEDS ORDERED: FentaNYL Citrate 50 MCG/ML 2 ML Injection IV PRN (00:15)
[2024-10-25] MEDS ORDERED: Midazolam HCl 1MG / ML 2ML Vial IV PRN (00:15)
[2024-10-25] MEDS ORDERED: Midazolam HCL 50 MG in NS 40 ML IV PRN (01:20)
[2024-10-25] MEDS ORDERED: fentaNYL citrate 1,000 MCG in NS 80 ML IV SCH (01:20)
[2024-10-25 03:19] LABS: Hematocrit 19.2 % (37.0-53.0); Hemoglobin 6.4 g/dL (13.5-17.5); Mean Corpuscular HGB 31.5 pg (26.0-34.0); Mean Corpuscular HGB Conc 33.3 g/dL (31.5-36.5); Mean Corpuscular Volume 95 fL (80-100); NRBC ABSOLUTE 0.34 K/mm3 (0.00-0.02); NRBC Auto 5.8 /100 WBC (0.0-0.2); RDW Coefficient Variation 14.5 % (11.7-14.2); RDW Standard Deviation 49.9 fL (35.1-46.3); Red Blood Cell Count 2.03 M/mm3 (4.30-5.90); White Blood Cell Count 5.86 K/mm3 (4.00-11.30)
[2024-10-25 03:29] LABS: Platelet Count 22 K/mm3 (150-400)
[2024-10-25 03:53] LABS: Albumin, Blood 2.7 g/dL (3.4-5.0); Albumin/Globulin Ratio 1.2 (0.8-1.8); Bilirubin, Total 0.7 mg/dL (0.1-1.0); Bun/Creatinine Ratio 15.7 (12.0-20.0); Calcium, Blood 8.7 mg/dL (8.5-10.1); Creatinine, Blood 1.02 mg/dL (0.60-1.20); Globulin, Blood 2.2 g/dL (2.2-4.0); Magnesium, Blood 2.1 mg/dL (1.6-2.4); Total Protein, Blood 4.9 g/dL (6.4-8.2)
[2024-10-25 04:12] LABS: BAND PERCENT MAN 10 % (0-8); BASOPHILS ABSOLUTE MAN 0.11 K/mm3 (0.00-0.23); BASOPHILS PERCENT MAN 2 % (0-2); BLASTS PERCENT MAN 3 % (0-0); EOSINOPHILS PERCENT MAN 0 % (0-6); LYMPHOCYTES % ATYPICAL MANUAL 3 % (0-0); LYMPHOCYTES ABSOLUTE MAN 2.05 K/mm3 (0.84-5.20); LYMPHOCYTES PERCENT MAN 32 % (21-46); METAMYELOCYTE ABSOLUTE MAN 0.17 K/mm3 (0.00-0.00); METAMYELOCYTE PERCENT MAN 3 % (0-0); MONOCYTES PERCENT MAN 12 % (4-13); MYELOCYTE ABSOLUTE MAN 0.05 K/mm3 (0.00-0.00); MYELOCYTE PERCENT MAN 1 % (0-0); NEUTROPHILS ABSOLUTE MAN 2.46 K/mm3 (1.96-9.15); PLASMA CELL ABSOLUTE MAN 0.05 K/mm3 (0.00-0.00); PLASMA CELLS PERCENT MAN 1 % (0-0); PROMYELOCYTE ABSOLUTE MAN 0.05 K/mm3 (0.00-0.00); PROMYELOCYTE PERCENT MAN 1 % (0-0); SEG NEUTROPHILS PERCENT MAN 32 % (41-73); TOTAL CELLS COUNTED 100
[2024-10-25] MEDS ORDERED: Pantoprazole Sodium 40 MG Injection IV SCH (06:00)
--- NOTE | 2024-10-25 06:24 | NUR ---
SHIFT SUMMARY PT CONTINUES TO REST IN BED, INTUBATED AND SEDATED. PT VARIES BETWEEN RASS OF -3 TO +1. PROPOFOL INFUSING AT 35MCG/KG/MIN, VERSED INFUSING AT 1MG/HR, FENTANYL INFUSING AT 50MCG/HR. PT PULLS AT RESTRAINTS, MOVES ALL EXTREMITIES, AND TURNS HEAD SIDE TO SIDE. PT DOES NOT OPEN EYES OR FOLLOW DIRECTION WHEN PROMPTED. HR 60-120'S SINUS, LEVOPHED INFUSING AT 5MCG/MIN TO MAINTAIN MAP >65. VENT SETTINGS AC/VC 20/500/5/40%, OXYGEN SATURATION >95%. PT HAS COPIOUS AMOUNTS OF THICK WHITE/CLEAR ORAL AND ETT SECRETIONS. OG TUBE IN PLACE CLAMPED. BOWEL TONES HYPOACTIVE. TEMP SHOEMAKER IN PLACE PATENT DRAINING YELLOW URINE TO GRAVITY. PT HAD TMAX OF 101.1 THIS SHIFT, FAN IN PLACE, TEMPERATURE IS CURRENTLY 99.8. PIV IN PLACE TO LFA, LEFT HAND AND RIGHT WRIST. CENTRAL LINE IN PLACE TO RIJ. 1 UNIT PRBC'S INFUSING AT 125MLS/HR. BED IN LOWEST POSITION, CARE CONTINUES.
--- NOTE | 2024-10-25 20:43 | NUR ---
ASSUMPTION OF CARE ASSUMED CARE OF PATIENT AT 1900, BEDSIDE SHIFT REPORT RECEIVED FROM STEPHANIE RN. PT RESTING IN BED, INTUBATED AND SEDATED. PROPOFOL INFUSING AT 40MCG/KG/MIN, VERSED INFUSING AT 3MG/HR, FENTANYL INFUSING AT 75MCG/HR. PT OCCASIONALLY PULLING AT RESTRAINTS AND TURNING HEAD SIDE TO SIDE. PT MOVES EXTREMITIES EQUALLY BILATERALLY. PT DOES NOT OPEN EYES WHEN ASKED OR FOLLOW DIRECTION WHEN PROMPTED. HR 70'S SINUS, MAP >65. VENT SETTINGS AC/VC 20/500/5/30%, OXYGEN SATURATION >92%. ABDOMEN ROUND, SOFT, BOWEL TONES HYPOACTIVE. OG TUBE IN PLACE CLAMPED. TEMP SHOEMAKER IN PLACE PATENT DRAINING JOEL COLORED URINE TO GRAVITY. PIV IN PLACE TO LEFT HAND AND RIGHT WRIST SL. CENTRAL LINE IN PLACE TO RIJ. BED IN LOWEST POSITION, CARE CONTINUES.
[2024-10-26] VITALS (57 sets, daily range): BP systolic 91–173; BP diastolic 43–80
[2024-10-26 03:50] LABS: Hematocrit 22.2 % (37.0-53.0); Hemoglobin 7.7 g/dL (13.5-17.5); Mean Corpuscular HGB 31.8 pg (26.0-34.0); Mean Corpuscular HGB Conc 34.7 g/dL (31.5-36.5); Mean Corpuscular Volume 92 fL (80-100); NRBC ABSOLUTE 0.36 K/mm3 (0.00-0.02); NRBC Auto 10.5 /100 WBC (0.0-0.2); RDW Coefficient Variation 14.8 % (11.7-14.2); RDW Standard Deviation 49.2 fL (35.1-46.3); Red Blood Cell Count 2.42 M/mm3 (4.30-5.90); White Blood Cell Count 3.43 K/mm3 (4.00-11.30)
[2024-10-26 03:59] LABS: Platelet Count 20 K/mm3 (150-400)
[2024-10-26 04:06] LABS: Albumin, Blood 2.4 g/dL (3.4-5.0); Bilirubin, Total 0.8 mg/dL (0.1-1.0); Bun/Creatinine Ratio 13.2 (12.0-20.0); Calcium, Blood 8.3 mg/dL (8.5-10.1); Creatinine, Blood 0.99 mg/dL (0.60-1.20); Globulin, Blood 2.3 g/dL (2.2-4.0); Potassium, Blood 3.7 mmol/L (3.5-5.5); Total Protein, Blood 4.7 g/dL (6.4-8.2)
[2024-10-26 04:17] LABS: BAND PERCENT MAN 6 % (0-8); BASOPHILS PERCENT MAN 0 % (0-2); BLASTS PERCENT MAN 5 % (0-0); EOSINOPHILS PERCENT MAN 0 % (0-6); LYMPHOCYTES % ATYPICAL MANUAL 2 % (0-0); LYMPHOCYTES PERCENT MAN 33 % (21-46); MONOCYTES ABSOLUTE MAN 0.41 K/mm3 (0.16-1.47); MONOCYTES PERCENT MAN 12 % (4-13); MYELOCYTE ABSOLUTE MAN 0.06 K/mm3 (0.00-0.00); MYELOCYTE PERCENT MAN 2 % (0-0); NEUTROPHILS ABSOLUTE MAN 1.54 K/mm3 (1.96-9.15); PLASMA CELL ABSOLUTE MAN 0.03 K/mm3 (0.00-0.00); PLASMA CELLS PERCENT MAN 1 % (0-0); SEG NEUTROPHILS PERCENT MAN 39 % (41-73); TOTAL CELLS COUNTED 100
--- NOTE | 2024-10-26 05:34 | NUR ---
SHIFT SUMMARY NO ACUTE CHANGES THIS SHIFT. PT CONTINUES TO REST IN BED, INTUBATED AND SEDATED. PROPOFOL INFUSING AT 30MCG/KG/MIN, FENTANYL INFUSING AT 75MCG/HR, VERSED INFUSING AT 3MG/HR. PT RASS SCORE VARIES BETWEEN -3 TO +1. PT OCCASIONALLY PULLING AT RESTRAINTS, SITTING UP, MOVES ALL EXTREMITIES, GRIMACING AND TURNING HEAD SIDE TO SIDE. PT OPENS EYES OCCASIONALLY WITH TURNS DOES NOT TRACK OR FOLLOW DIRECTION WHEN PROMPTED. HR 60-80'S SINUS, BP LABILE, SBP 80-100'S. VENT SETTINGS AC/VC 20/500/5/30%, OXYGEN SATURATION >90%. ABDOMEN SOFT, BOWEL TONES ACTIVE THROUGHOUT. OG TUBE IN PLACE CLAMPED. TEMP SHOEMAKER IN PLACE PATENT DRAINING YELLOW URINE TO GRAVITY. PIV IN PLACE TO LEFT HAND AND RIGHT WRIST SL. CENTRAL LINE IN PLACE TO RIJ. BED IN LOWEST POSITON, CARE CONTINUES.
--- NOTE | 2024-10-26 07:31 | NUR ---
THIS RN ASSUMED CARE OF PT AT 0700. PT IS INTUBATED AND SEDATED ON PROPOFOL, VERSED AND FENTANYL. PT IS A RASS OF -2, DOES MOVE WITH ENVIRONMENTAL STIMULI AND LOCALIZES TO PAIN. PT HEART RATE IS IN THE 60s, BLOOD PRESSURE STABLE AT 130/49 MAP OF 71, PT ON 3MCG OF LEVOPHED. PT IS INTUBATED, VENTILATOR SETTINGS ARE 20/500/30%/5, PT SATTING >95%. PT DOES HAVE RIGHT IJ QUAD LUMEN THAT IS CLEAN/DRY/INTACT. PT HAS OG THAT IS CLAMPED, AND A SHOEMAKER CATHETER THAT IS DRAINING TO GRAVITY. SCD ARE IN PLACE. NO OTHER INTERVENTIONS AT THIS TIME. PLAN OF CARE CONTINUED.
[2024-10-26] MEDS ORDERED: Insulin Glargine-Yfgn 100 Unit/mL 3 ML SYR SC SCH (09:00)
[2024-10-26] MEDS ORDERED: Insulin Regular 100 UNIT/ML 10ML Vial SC SCH (12:00)
--- NOTE | 2024-10-26 17:47 | NUR ---
PT SUMMARY PT IS STILL INTUBATED AND SEDATED, WAS AT BEDSIDE AND DID NOT WANT TO DO A WEANING TRIAL TODAY, WANTED PT TO REST TODAY. FAMILY HAS CALLED AND BEEN UPDATED. PT IS STILL ON PROP, FENT AND VERSED. PT DOES STILL HAVE CATHETER DRAINING TO GRAVITY. BLOOD SUGAR WAS 99 AND TUBE FEEDS WERE STARTED TODAY AT 1530 AT 25ML/HR, AT 2330 THEY CAN BE INCREASED TO A GOAL OF 65ML/HR. NO OTHER EVENTS TO REPORT THROUGHOUT THE DAY, LEVO HAS BEEN OFF SINCE 1000. PLAN OF CARE CONTINUED.
--- NOTE | 2024-10-26 21:20 | NUR ---
ASSUMPTION OF CARE ASSUMED CARE OF PATIENT AT 1900, BEDSIDE SHIFT REPORT RECEIVED FROM STEPHANIE RN. PT RESTING IN BED, INTUBATED AND SEDATED. PROPOFOL INFUSING AT 35MCG/KG/MIN, VERSED INFUSING AT 3MG/HR, FENTANYL INFUSING AT 75MCG/HR. PT BECOMES VERY AGGITATED WITH REPOSITIONING, PULLING AT RESTRAINTS, ATTEMPTING TO SIT UP, AND COUGHING. PT RASS -3 WITHOUT STIMULATION. HR 70'S SINUS, MAP >65. VENT SETTINGS AC/VC 20/500/5/35%, OXYGEN SATURATION >92%. OG TUBE IN PLACE WITH VHP INFUSING AT 25MLS/HR WITH 30 ML Q4H WATER FLUSH. ABDOMEN SOFT, BOWEL TONES HYPOACTIVE. TEMP SHOEMAKER IN PLACE PATENT DRAINING TO GRAVITY. PIV IN PLACE TO LEFT HAND AND RIGHT WRIST. CENTRAL LINE IN PLACE TO RIJ. BED IN LOWEST POSITON, CARE CONTINUES.
[2024-10-27] VITALS (54 sets, daily range): BP systolic 99–151; BP diastolic 31–86
--- NOTE | 2024-10-27 06:11 | NUR ---
SHIFT [facility] NO ACUTE CHNAGES THIS SHIFT. PT CONTINUES TO REST IN BED, INTUBATED AND SEDATED. PROPOFOL INFUSING AT 35MCG/KG/MIN, VERSED INFUSING AT 3MG/HR, FENTANYL INFUSING AT 75MLS/HR. PT BECOMES VERY AGGITATED WITH STIMULATION/REPOSITIONING. PT OPENS EYES OCCASIONALLY WITH TURNS, DOES NOT TRACK OR FOLLOW DIRECTION WHEN PROMPTED. HR 60-70'S SINUS, MAP >65. VENT SETTINGS AC/VC 20/500/5/35%, OXYGEN SATURATION >95%. ABDOMEN SOFT, BOWEL TONES HYPOACTIVE. OG TUBE IN PLACE, VHP INFUSING AT 45MLS/HR WITH 30ML Q4H WATER FLUSH, TF GOAL IS 65MLS/HR. TEMP SHOEMAKER IN PLACE PATENT DRAINING YELLOW URINE TO GRAVITY. PT HAS TMAX OF 100.3, CURRENT TEMPERATURE IS 100.0. PIV IN PLACE TO LEFT HAND AND RIGHT WRIST. CENTRAL LINE IN PLACE TO RIJ. BED IN LOWEST POSITION, CARE CONTINUES.
--- NOTE | 2024-10-27 08:58 | NUR ---
THIS RN ASSUMED CARE OF PT AT 0700. PT IS INTUBATED AND SEDATED ON VERSED, PROP AND FENTANYL. PT DOES LOCALIZE TO PAIN, VERY AGITATED WHEN BEING TURNED. PT HEART RATE IN THE 70s, BLOOD PRESSURE STABLE AT 115/52 MAP OF 69. PT IS ON VENTILATOR 20/500/35%/5. PT IS SATTING >92%, NO OBJECTIVE S/S OF SHORTNESS OF BREATH. PT DOES HAVE SHOEMAKER CATHETER DRAINING TO GRAVITY. OG HAS TUBE FEEDS RUNNING, HAVE BEEN INCREASED TO 55ML/HR AT 0900, GOAL IS 65 ML/HR. PT DOES HAVE CENTRAL LINE RIJ THAT IS CLEAN/DRY/INTACT. NO OTHER INTERVENTIONS AT THIS TIME. PLAN OF CARE CONTINUED.
[2024-10-27] MEDS ORDERED: dexmedeTOMIDine 100 ML IV SCH (11:00)
[2024-10-27 11:27] LABS: Hematocrit 23.4 % (37.0-53.0); Hemoglobin 8.1 g/dL (13.5-17.5); Mean Corpuscular HGB 32.1 pg (26.0-34.0); Mean Corpuscular HGB Conc 34.6 g/dL (31.5-36.5); Mean Corpuscular Volume 93 fL (80-100); Mean Platelet Volume 12.2 fL (9.1-12.4); NRBC ABSOLUTE 0.28 K/mm3 (0.00-0.02); RDW Coefficient Variation 14.7 % (11.7-14.2); RDW Standard Deviation 49.8 fL (35.1-46.3); Red Blood Cell Count 2.52 M/mm3 (4.30-5.90); White Blood Cell Count 3.12 K/mm3 (4.00-11.30)
[2024-10-27 11:34] LABS: Platelet Count 24 K/mm3 (150-400)
[2024-10-27 11:50] LABS: BAND PERCENT MAN 3 % (0-8); METAMYELOCYTE ABSOLUTE MAN 0.06 K/mm3 (0.00-0.00); METAMYELOCYTE PERCENT MAN 2 % (0-0); NEUTROPHILS ABSOLUTE MAN 1.31 K/mm3 (1.96-9.15); SEG NEUTROPHILS PERCENT MAN 39 % (41-73); TOTAL CELLS COUNTED 100
[2024-10-27 11:53] LABS: BASOPHILS PERCENT MAN 0 % (0-2); BLASTS PERCENT MAN 5 % (0-0); EOSINOPHILS ABSOLUTE MAN 0.03 K/mm3 (0.00-0.68); EOSINOPHILS PERCENT MAN 1 % (0-6); LYMPHOCYTES ABSOLUTE MAN 0.96 K/mm3 (0.84-5.20); LYMPHOCYTES PERCENT MAN 31 % (21-46); MONOCYTES ABSOLUTE MAN 0.59 K/mm3 (0.16-1.47); MONOCYTES PERCENT MAN 19 % (4-13)
[2024-10-27 11:56] LABS: Albumin, Blood 2.3 g/dL (3.4-5.0); Anion Gap 10 mmol/L (3-11); Blood Urea Nitrogen 15 mg/dL (8-24); Bun/Creatinine Ratio 15.9 (12.0-20.0); CO2, Blood 24 mmol/L (21-32); Calcium, Blood 8.7 mg/dL (8.5-10.1); Chloride, Blood 106 mmol/L (98-108); Creatinine, Blood 0.94 mg/dL (0.60-1.20); Glomerular Filtration Rate 89 (60-); Glucose, Blood 154 mg/dL (70-99); Phosphorus, Blood 5.1 mg/dL (2.5-4.9); Potassium, Blood 3.8 mmol/L (3.5-5.5); Sodium, Blood 136 mmol/L (136-145)
[2024-10-27] MEDS ORDERED: Folic Acid 1 MG in NS 50 ML IV SCH (12:00)
[2024-10-27] MEDS ORDERED: Thiamine HCl 100 MG in NS 50 ML IV SCH (12:00)
[2024-10-27 13:31] LABS: MYELOCYTE PERCENT MAN 0 % (0-0)
--- NOTE | 2024-10-27 18:02 | NUR ---
PT SUMMARY PT IS STILL INTUBATED AND SEDATED, NO WEANING TRIAL WAS DONE TODAY, PT WAS NOT READY AND STILL HAS PNEUMONIA. TUBE FEEDS HAVE BEEN RAISED TO GOAL, PT SEEMS TO BE TOLERATING WELL. PT HAS HAD FEVER, DID COME DOWN AFTER TYLENOL AND ICE PACKS WERE APPLIED TO PT. PT PHOSPHORUS WAS 5.1, THIS RN ASKED IF HE WOULD LIKE TUBE FEEDINGS TO BE STOPPED AND SAID TO KEEP TUBE FEEDS GOING. NO OTHER INTERVENTIONS AT THIS TIME. NO OTHER ACUTE EVENTS TO REPORT THROUGHOUT THE DAY. PLAN OF CARE CONTINUED.
[2024-10-27] MEDS ORDERED: Lactobacil 2-S.Thermo-Bifido 1 1 Cap PT SCH (21:00)
--- NOTE | 2024-10-27 21:09 | NUR ---
ASSUMPTION OF CARE ASSUMED CARE OF PATIENT AT 1900, BEDSIDE SHIFT REPORT RECEIVED FROM STEPHANIE RN. PT RESTING IN BED, CONTINUES TO BE INTUBATED AND SEDATED. PROPOFOL INFUSING AT 35MCG/KG/MIN, VERSED INFUSING AT 3MG/HR, FENTANYL INFUSING AT 75MCG/HR. PT AGGITATED WITH STIMULATION. OPENS EYES OCCASIONALLY, DOES NOT MAKE EYE CONTACT OR TRACK, DOES NOT FOLLOW DIRECTION WHEN PROMPTED. HR 70-80'S SINUS, MAP >65. VENT SETTINGS AC/VC 20/500/5/35%, OXYGEN SATURATION >92%, PT DESATS OCCASIONALLY WHEN AGGITATED. OG TUBE IN PLACE VHP INFUSING AT GOAL RATE OF 65MLS/HR WITH 30ML Q4H WATER FLUSH. ABDOMEN ROUND, BOWEL TONES HYPOACTIVE. SHOEMAKER IN PLACE PATENT DRAINING YELLOW URINE TO GRAVITY. PIV IN PLACE TO LEFT HAND AND RIGHT WRIST SL. CENTRAL LINE IN PLACE TO RIJ. BED IN LOWEST POSITION, CARE CONTINUES.
[2024-10-28] VITALS (76 sets, daily range): BP systolic 91–167; BP diastolic 36–145
--- NOTE | 2024-10-28 05:33 | NUR ---
SHIFT SUMMARY NO ACUTE CHANGES THIS SHIFT. PT CONITNUES TO REST IN BED, INTUBATED AND SEDATED. PROPOFOL INFUSING AT 35MCG/KG/MIN, FENTANYL INFUSING AT 75MCG/HR, VERSED INFUSING AT 3MG/HR. PT RESPONSIVE TO VERBAL STIMULI, BECOMES VERY AGGISTATED WITH STIMULATION. PT OCCASIONALLY OPENS EYES, DOES NOT TRACK OR MAKE EYE CONTACT. PT DOES NOT FOLLOW DIRECTION WHEN PROMPTED. HR 60-70'S SINUS, MAP >65. VENT SETTINGS AC/VC 20/500/5/35%, OXYGEN SATURATION >92%. ABDOMEN FIRM, BOWEL TONES HYPOACTIVE, NO BM THIS SHIFT. PT GIVEN BOWEL CARE MEDS PER EMAR. VHP INFUSING AT GOAL RATE OF 65MLS/HER WITH 30ML Q4H WATER FLUSH. TEMP SHOEMAEKR IN PLACE PATENT DRAINING YELLOW URINE TO GRAVITY. PIV IN PLACE TO LEFT HAND AND RIGHT WRIST. CENTRAL LINE IN PLACE TO RIJ INFUSING. BED IN LOWEST POSITION, CARE CONTINUES.
[2024-10-28] MEDS ORDERED: Levothyroxine Sodium 0.1 MG Tab PT SCH (06:00)
[2024-10-28 10:41] LABS: Mean Corpuscular HGB 31.3 pg (26.0-34.0); Mean Corpuscular HGB Conc 33.3 g/dL (31.5-36.5); Mean Corpuscular Volume 94 fL (80-100); NRBC ABSOLUTE 0.15 K/mm3 (0.00-0.02); NRBC Auto 4.7 /100 WBC (0.0-0.2); RDW Coefficient Variation 14.7 % (11.7-14.2); RDW Standard Deviation 50.3 fL (35.1-46.3); Red Blood Cell Count 2.56 M/mm3 (4.30-5.90); White Blood Cell Count 3.18 K/mm3 (4.00-11.30)
[2024-10-28 10:46] LABS: Mean Platelet Volume 13.8 fL (9.1-12.4); Platelet Count 25 K/mm3 (150-400)
[2024-10-28 11:10] LABS: Albumin, Blood 2.2 g/dL (3.4-5.0); Anion Gap 11 mmol/L (3-11); Blood Urea Nitrogen 19 mg/dL (8-24); Bun/Creatinine Ratio 21.3 (12.0-20.0); CO2, Blood 23 mmol/L (21-32); Calcium, Blood 8.8 mg/dL (8.5-10.1); Chloride, Blood 108 mmol/L (98-108); Creatinine, Blood 0.89 mg/dL (0.60-1.20); Glomerular Filtration Rate 95 (60-); Glucose, Blood 172 mg/dL (70-99); Phosphorus, Blood 4.5 mg/dL (2.5-4.9); Sodium, Blood 138 mmol/L (136-145)
[2024-10-28 11:32] LABS: BAND PERCENT MAN 9 % (0-8); BASOPHILS PERCENT MAN 0 % (0-2); BLASTS PERCENT MAN 5 % (0-0); EOSINOPHILS PERCENT MAN 0 % (0-6); LYMPHOCYTES ABSOLUTE MAN 0.69 K/mm3 (0.84-5.20); LYMPHOCYTES PERCENT MAN 22 % (21-46); METAMYELOCYTE ABSOLUTE MAN 0.28 K/mm3 (0.00-0.00); METAMYELOCYTE PERCENT MAN 9 % (0-0); MONOCYTES ABSOLUTE MAN 0.22 K/mm3 (0.16-1.47); MONOCYTES PERCENT MAN 7 % (4-13); MYELOCYTE ABSOLUTE MAN 0.34 K/mm3 (0.00-0.00); MYELOCYTE PERCENT MAN 11 % (0-0); NEUTROPHILS ABSOLUTE MAN 1.43 K/mm3 (1.96-9.15); PROMYELOCYTE ABSOLUTE MAN 0.03 K/mm3 (0.00-0.00); PROMYELOCYTE PERCENT MAN 1 % (0-0); SEG NEUTROPHILS PERCENT MAN 36 % (41-73); TOTAL CELLS COUNTED 100
--- NOTE | 2024-10-28 13:35 | NUR ---
Spiritual Care Visit. Pt. is intubated and does not respond to my repeated greeting. Prayed over the Pt. as I have in the past. Will remain available to the Pt.
--- NOTE | 2024-10-28 17:12 | NUR ---
PALLIATIVE CARE NOTE: SPOKE TO MERARI CABALLERO ON THE PHONE AND UPDATED HIM ABOUT PATIENTS CONDITION. DISCUSSED COMFORT MEASURES/HOSPICE. DISCUSSED CHANGING CODE STATUS TO DNR. ADA STATED HE WOULD CALL OTHER FAMILY BROTHER PATRICK, SISTER LYNDA AND UPDATE THEM. HE WILL TALK TO HIS HIRAM WHO IS SISTER TO PATIENT AND "GENTLY BREAK THE NEWS TO HER". ADA STATED HE WOULD HAVE HIRAM (PRIMARY DECISION MAKER) IN THE MORNING WITH THE FAMILIES DECISION. ACCORDING TO ADA NGUYEN AND LYNDA WILL LIKELY NOT MAKE ANY DECISIONS AND WILL LEAVE IT UP TO HIRAM TO MAKE ALL THE DECISIONS.
--- NOTE | 2024-10-28 19:02 | NUR ---
COLLEEN HAS REMAINED ON THE VENTILATOR T/O THE SHIFT. NO CHANGES TO SETTINGS. HE HAS BEEN MORE SEDATE THE LATER HALF OF THE AFTERNOON. SEDATION TITRATED DOWN WITH PROPOFOL, MIDAZOLAM AND FENTANYL. TEMP HAS CLIMBED THIS AFTERNOON, TYLENOL GIVEN 102.3. HE HAS OPENED HIS EYES DURING THE SHIFT. WILL CONTINUE PLAN.
[2024-10-29] VITALS (44 sets, daily range): BP systolic 102–162; BP diastolic 40–116
--- NOTE | 2024-10-29 06:12 | NUR ---
SHIFT SUMMARY PT HAD NO SIGNIFICANT CHANGE THROUGH THE NIGHT. HE STILL TRANSIENTLY HAS PERIODS OF AGITATION WITH TEMPERATURE AND HR SPIKES ALONG WITH O2 DESATURATION. HE HAS BEEN FEBRILE THROUGHOUT SHIFT DESPITE COOLING EFFORTS. PT HAS HAD A FEW SOFT BPS BUT OTHERWISE STABLE. WITH A FEW EXCEPTIONS ASSOCIATED WITH AGITATION, PT HAS HAD A HR IN THE 80S-90S.
[2024-10-29 11:29] LABS: Hematocrit 22.5 % (37.0-53.0); Hemoglobin 7.6 g/dL (13.5-17.5); Mean Corpuscular HGB 31.7 pg (26.0-34.0); Mean Corpuscular HGB Conc 33.8 g/dL (31.5-36.5); Mean Corpuscular Volume 94 fL (80-100); Mean Platelet Volume 12.4 fL (9.1-12.4); NRBC ABSOLUTE 0.13 K/mm3 (0.00-0.02); NRBC Auto 3.1 /100 WBC (0.0-0.2); RDW Coefficient Variation 14.9 % (11.7-14.2); RDW Standard Deviation 51.2 fL (35.1-46.3); White Blood Cell Count 4.19 K/mm3 (4.00-11.30)
[2024-10-29 11:48] LABS: Platelet Count 26 K/mm3 (150-400)
[2024-10-29 11:49] LABS: Anion Gap 11 mmol/L (3-11); Blood Urea Nitrogen 24 mg/dL (8-24); CO2, Blood 23 mmol/L (21-32); Calcium, Blood 8.9 mg/dL (8.5-10.1); Chloride, Blood 106 mmol/L (98-108); Creatinine, Blood 0.89 mg/dL (0.60-1.20); Glomerular Filtration Rate 95 (60-); Glucose, Blood 202 mg/dL (70-99); Potassium, Blood 4.1 mmol/L (3.5-5.5); Sodium, Blood 136 mmol/L (136-145)
[2024-10-29] MEDS ORDERED: Vancomycin HCL 2,000 MG in NS 500 ML IV ONE (12:35)
[2024-10-29] MEDS ORDERED: Furosemide 10 MG/ML 4ML Vial IV ONE ×2 (12:45→16:15)
[2024-10-29] MEDS ORDERED: Potassium Chloride 20 MEQ/15 ML UDC PT ONE (12:45)
[2024-10-29 12:48] LABS: BAND PERCENT MAN 4 % (0-8); BASOPHILS PERCENT MAN 0 % (0-2); BLASTS PERCENT MAN 8 % (0-0); EOSINOPHILS PERCENT MAN 0 % (0-6); LYMPHOCYTES % ATYPICAL MANUAL 2 % (0-0); LYMPHOCYTES ABSOLUTE MAN 1.21 K/mm3 (0.84-5.20); LYMPHOCYTES PERCENT MAN 27 % (21-46); METAMYELOCYTE ABSOLUTE MAN 0.29 K/mm3 (0.00-0.00); METAMYELOCYTE PERCENT MAN 7 % (0-0); MONOCYTES ABSOLUTE MAN 0.62 K/mm3 (0.16-1.47); MONOCYTES PERCENT MAN 15 % (4-13); MYELOCYTE ABSOLUTE MAN 0.12 K/mm3 (0.00-0.00); MYELOCYTE PERCENT MAN 3 % (0-0); NEUTROPHILS ABSOLUTE MAN 1.59 K/mm3 (1.96-9.15); SEG NEUTROPHILS PERCENT MAN 34 % (41-73); TOTAL CELLS COUNTED 100
--- NOTE | 2024-10-29 14:30 | NUR ---
Spiritual Care Visit. Pt. continues to be intubated and not responsive. Prayed for the Pt. and will be availabe to the Pt. and family when they arrive.
--- NOTE | 2024-10-29 17:27 | NUR ---
COLLEEN HAS CONTINUED TO BE RESTLESS AND UNCOMFORTABLE THROUGHOUT THE DAY. THE MIDAZOLAM HAS BEEN DC'D PER , THE SHOEMAKER CATHETER HAS BEEN REMOVED. PT HAS BEEN STARTED ON VANCOMYCIN AND LASIX. FAMILY DID NOT HAVE A MEETING WAS CONVEYED TO STAFF BY PALLIATIVE CARE. SPOKE WITH CLEO, BROTHER IN [place], IN CHARGE OF CARE, HE STATES THAT THE FAMILY IS NOT ON THE SAME PAGE. THE BROTHER IN [place] WOULD LIKE TO "NOT GIVE UP" AND WOULD LIKE TO KEEP AT STATUS QUO. THE TEMPORAL TEMPERATURE HAS REMAINED WNL ALTHOUGH THE TEMP SHOEMAKER HAD LAST REPORTED AT 100.0. HE HAS A PUREWICK IN PLACE.
[2024-10-30] VITALS (47 sets, daily range): BP systolic 106–169; BP diastolic 41–125
[2024-10-30] MEDS ORDERED: Vancomycin HCL 1,000 MG in NS 250 ML IV SCH (02:00)
[2024-10-30 04:22] LABS: Hemoglobin 7.7 g/dL (13.5-17.5); Mean Corpuscular HGB 32.4 pg (26.0-34.0); Mean Corpuscular Volume 92 fL (80-100); NRBC ABSOLUTE 0.28 K/mm3 (0.00-0.02); NRBC Auto 3.5 /100 WBC (0.0-0.2); RDW Coefficient Variation 15.4 % (11.7-14.2); RDW Standard Deviation 51.8 fL (35.1-46.3); Red Blood Cell Count 2.38 M/mm3 (4.30-5.90); White Blood Cell Count 7.95 K/mm3 (4.00-11.30)
[2024-10-30 04:36] LABS: Mean Platelet Volume 12.8 fL (9.1-12.4); Platelet Count 32 K/mm3 (150-400)
[2024-10-30 04:57] LABS: Albumin, Blood 2.1 g/dL (3.4-5.0); Albumin/Globulin Ratio 0.7 (0.8-1.8); Bilirubin, Total 1.8 mg/dL (0.1-1.0); Bun/Creatinine Ratio 32.6 (12.0-20.0); Calcium, Blood 8.9 mg/dL (8.5-10.1); Creatinine, Blood 0.92 mg/dL (0.60-1.20); Phosphorus, Blood 4.1 mg/dL (2.5-4.9); Potassium, Blood 4.2 mmol/L (3.5-5.5); Total Protein, Blood 5.1 g/dL (6.4-8.2)
[2024-10-30 05:21] LABS: BAND PERCENT MAN 6 % (0-8); BASOPHILS PERCENT MAN 0 % (0-2); BLASTS PERCENT MAN 6 % (0-0); EOSINOPHILS ABSOLUTE MAN 0.15 K/mm3 (0.00-0.68); EOSINOPHILS PERCENT MAN 2 % (0-6); LYMPHOCYTES % ATYPICAL MANUAL 2 % (0-0); LYMPHOCYTES PERCENT MAN 37 % (21-46); METAMYELOCYTE ABSOLUTE MAN 0.15 K/mm3 (0.00-0.00); METAMYELOCYTE PERCENT MAN 2 % (0-0); MONOCYTES ABSOLUTE MAN 0.71 K/mm3 (0.16-1.47); MONOCYTES PERCENT MAN 9 % (4-13); MYELOCYTE ABSOLUTE MAN 0.79 K/mm3 (0.00-0.00); MYELOCYTE PERCENT MAN 10 % (0-0); NEUTROPHILS ABSOLUTE MAN 2.54 K/mm3 (1.96-9.15); SEG NEUTROPHILS PERCENT MAN 26 % (41-73); TOTAL CELLS COUNTED 100
--- NOTE | 2024-10-30 05:22 | NUR ---
SHIFT SUMMARY: PT HAS NOT HAD ANY SIGNIFICANT CHANGES OVERNIGHT. HIS SISTER AND [id number] VISITED WITH HIM FOR A WHILE EARLY IN THE SHIFT. HE RESPONDED TO THEM BEING HERE AND TALKING TO HIM. HE DOES, HOWEVER, REMAIN VERY AGITATED BY ANY STIMULI. HEAVY ORAL SECRETIONS CONTINUE. HR MOSTLY IN THE 80S-90S EXCEPT FOR PERIODS OF AGITATION. HE DID HAVE A FEW TRANSIET EPISODES OF TACYCARDIA INTO THE 150S. ALSO FREQUENT PVCS. BP IS STABLE. FEVER FINALLY BROKE THIS AM.
--- NOTE | 2024-10-30 08:48 | NUR ---
SINCE BSR COLLEEN HAS BEEN RESTLESS, EYES OPEN, LOOKING AROUND. FENTANYL @ 40MCG/HR, PROPOFOL AT 40MCG/HR, FIO2 AT 50%, DESATURATES TO MID-LO 80S, TURNNG HIS HEAD, COUGHING, SALIVATING, ETT ILLICITS LIGHT YELLOW/HALE RETURN, CONTINUES INTERMITTENT DESATURATIONS. FIO2 UP TO 60%, CONTINUES TO DROP TO 85% FIO2 INCREASED 65%, ATIVAN GIVEN.
--- NOTE | 2024-10-30 14:50 | NUR ---
PALLIATIVE CARE NOTE: SPOKE TO SISTER LYNDA ON THE PHONE. DISCUSSED WITH HER THE SERIOUSNESS OF HER BROTHERS ILLNESS. LYNDA STATES SHE IS DR[place] THE [place] AND WILL BE GETTING RIDE WITH HER BROTHER PATRICK TO SEE PT TOMORROW NIGHT. LYNDA DID NOT KNOW WHAT TIME SHE WILL BE ARRIVING AND DID NOT GUARANTEE SHE WOULD ARRIVE TOMORROW BY STATING EITHER TOMORROW OR THE NEXT DAY WE WILL ARRIVE. ENCOURAGED HER TO COME VANESSA.
--- NOTE | 2024-10-30 18:32 | NUR ---
COLLEEN CONTINUES ON THE VENTILATOR, RESTLESS AND AGITATED MOST OF THE SHIFT. REMAINS ON PROPOFOL AT 40MCG/KG AND FENTANYL AT 75MCG/HR. ANTIBIOTICS AND DAILY THIAMINE AND FOLIC ACID GIVEN. PT CONTINUES WITH PUREWICK, GOOD OUTPUT DESPITE WET BED AND LINEN CHANGE. FEET AND HANDS REMAIN EDEMATOUS, PG IN MARISA AND PIV IN RIGHT WRIST. SPOKE WITH BOTH SISTERS TODAY, HIRAM AND LYNDA, UPDATES GIVEN. OPENS EYES TO THIS RN AND MOVES HEAD BACK AND FORTH FREQUENTLY. NO OTHER CHANGES.
--- NOTE | 2024-10-30 19:51 | NUR ---
COMMUNICATION UPDATE PTS BROTHER, KEANU, CALLED FOR AN UPDATE. I LET HIM KNOW THAT THE LAST SIGNED CONSENT FORM WE HAVE FROM [facility] PRIOR TO RE-INTUBATION SPECIFIED CLEO THE ONLY ONE TO GIVE INFORMATION TO AND HE'LL DISPERSE TO THE OTHERS. KEANU SAID HE SPOKE TO CLEO AND IT SOUNDED LIKE THE PATIENT IS IMPROVING. I ADVISED HIM THAT WHILE I CAN'T PROVIDE AN UPDATE THE DOCTOR HAS INDICATED THAT HE NEEDS TO SPEAK WITH OR HAVE A CONFERENCE WITH ALL OF [facility]'S SIBLINGS TO DISCUSS GOALS OF CARE AND WHAT THE PLAN IS MOVING FORWARD. HIRAM [facility]'S SISTER HAS SAID THAT [facility] SHOULD BE A DNR AND WOULDN'T WANT ANY OF THESE INTERVENTIONS [facility] AND WOULD NOT WANT TO GO TO A FACILITY AFTER THIS.
[2024-10-31] VITALS (69 sets, daily range): BP systolic 48–154; BP diastolic 30–134
[2024-10-31 01:41] LABS: Vancomycin, Trough 16.8 ug/mL (5.0-10.0)
[2024-10-31 05:26] LABS: Hematocrit 19.7 % (37.0-53.0); Hemoglobin 6.7 g/dL (13.5-17.5); Mean Corpuscular HGB 31.6 pg (26.0-34.0); Mean Corpuscular Volume 93 fL (80-100); NRBC ABSOLUTE 0.52 K/mm3 (0.00-0.02); RDW Coefficient Variation 15.7 % (11.7-14.2); RDW Standard Deviation 52.9 fL (35.1-46.3); Red Blood Cell Count 2.12 M/mm3 (4.30-5.90); White Blood Cell Count 8.69 K/mm3 (4.00-11.30)
[2024-10-31 05:30] LABS: Platelet Count 30 K/mm3 (150-400)
[2024-10-31 05:50] LABS: BAND PERCENT MAN 6 % (0-8); BASOPHILS ABSOLUTE MAN 0.34 K/mm3 (0.00-0.23); BASOPHILS PERCENT MAN 4 % (0-2); BLASTS PERCENT MAN 6 % (0-0); EOSINOPHILS ABSOLUTE MAN 0.08 K/mm3 (0.00-0.68); EOSINOPHILS PERCENT MAN 1 % (0-6); LYMPHOCYTES % ATYPICAL MANUAL 1 % (0-0); LYMPHOCYTES ABSOLUTE MAN 3.12 K/mm3 (0.84-5.20); LYMPHOCYTES PERCENT MAN 35 % (21-46); METAMYELOCYTE ABSOLUTE MAN 0.26 K/mm3 (0.00-0.00); METAMYELOCYTE PERCENT MAN 3 % (0-0); MONOCYTES ABSOLUTE MAN 1.12 K/mm3 (0.16-1.47); MONOCYTES PERCENT MAN 13 % (4-13); MYELOCYTE ABSOLUTE MAN 0.26 K/mm3 (0.00-0.00); MYELOCYTE PERCENT MAN 3 % (0-0); NEUTROPHILS ABSOLUTE MAN 2.86 K/mm3 (1.96-9.15); PLASMA CELL ABSOLUTE MAN 0.08 K/mm3 (0.00-0.00); PLASMA CELLS PERCENT MAN 1 % (0-0); SEG NEUTROPHILS PERCENT MAN 27 % (41-73); TOTAL CELLS COUNTED 100
--- NOTE | 2024-10-31 05:59 | NUR ---
SHIFT SUMMARY: NO SIGNIFICANT CHANGES THROUGH NIGHT. PT WAS MORE RELAXED TONIGHT, THOUGH THIS MORNING HE BEGAN GETTING QUITE AGITATED. HE REMAINS ON PROPOFOL AND FENTANYL GTT AND IS IN RESTRAINTS BUT HE HAS BEEN OPENING HIS EYES AND TRACKING ME AND HAS BEEN REACHING WITH ALL EXTREMITIIES FOR HIS ET TUBE. VITALS ARE STABLE.
[2024-10-31 06:08] LABS: Anion Gap 11 mmol/L (3-11); Blood Urea Nitrogen 44 mg/dL (8-24); Bun/Creatinine Ratio 38.9 (12.0-20.0); CO2, Blood 24 mmol/L (21-32); Calcium, Blood 9.1 mg/dL (8.5-10.1); Chloride, Blood 108 mmol/L (98-108); Creatinine, Blood 1.13 mg/dL (0.60-1.20); Glomerular Filtration Rate 72 (60-); Glucose, Blood 246 mg/dL (70-99); Phosphorus, Blood 4.2 mg/dL (2.5-4.9); Sodium, Blood 139 mmol/L (136-145); Triiodothyronine, Free 1.25 pg/mL (2.18-3.98)
--- NOTE | 2024-10-31 07:50 | NUR ---
Consult order received and processed. Medical history, social constellation, and relevant legistlative ordinances reviewed. Conversation facilitated with the attending freight receiver / critical care provider. Initial concerns surrounding family participation in clinical decision making have been reportedly resolved. Will remain available.
[2024-10-31] MEDS ORDERED: Furosemide 10 MG/ML 4ML Vial IV ONE (08:35)
[2024-10-31] MEDS ORDERED: Ketoconazole 2% Cream 15 GM TOP SCH (13:00)
--- NOTE | 2024-10-31 16:03 | NUR ---
PALLIATIVE CARE NOTE: SPOKE TO ADA ON THE PHONE TO GET UPDATE ON WHEN FAMILY WILL ARRIVE. ADA STATED NOW THERE IS FAMILY COMING FROM [facility] AND [facility] AND SO THE PLAN IS FOR ALL OF THEM TO COME TOMORROW. URGED ADA TO PLAN TO COME IN TODAY WITH FAMILY PRESENT. AND HE WAS ADAMENT FAMILY WILL NOT ARRIVE UNTIL TOMORROW BY REPEATING MULTIPLE TIMES. UPDATED PRIMARY RN.
--- NOTE | 2024-10-31 18:36 | NUR ---
SHIFT SUMMARY: NEURO: WITH LOWER LEVELS OF SEDATION, PATIENT OPENING EYES IN REPONSE TO RN'S CUES. MOVEMENT IN ALL 4 EXTREMITIES. NO OTHER FOLLOWING OF COMMANDS NOTED. PATIENT QUICKLY INCREASES RASS SCORE WITH LOWER LEVELS OF SEDATION. TRANSITIONED FROM PROPOFOL TO PRECEDEX PER MD ORDERS. PATIENT ENDED SHIFT ON 0.8 MCG/KG/HR OF PRECEDEX AND 25 MCG/HR OF FENTANYL GTT. RESPIRATORY: PATIENT TOLERATED VENT THROUGHOUT THE SHIFT WITH SEDATION AND ADJUNCTS. SETTINGS AT THE END OF SHIFT: AC/VC 20/500/7/55%. SPO2 >90%. CARDIAC: HR IN THE 70S-80S WITH BRIEF INCREASES HIGH 130 WITH DISCOMFORT. BLOOD PRESSURES STABLE WITH MAPS >65 OTHER THAN DURING TRANSITION FROM PROPOFOL TO PRECEDEX. RESOLVED WITH ADJUSTMENT OF SEDATION. GI/: PATIENT VOIDING WITHOUT RETENTION. BLADDER SCANS Q4HR WITH THE HIGHEST AT 403 ML. TWO SOFT BROWN BOWEL MOVEMENTS TODAY. PSYCHSOCIAL: THE PLAN IS FOR THE PATIENT TO COME TO THE HOSPITAL TOMORROW TO DISCUSS PLAN OF CARE. PATIENT ANXIOUS AT TIMES. PRN ADJUNCTS HELPFUL WITH HELPING WITH ANXIETY.
[2024-10-31 18:41] LABS: Hemoglobin 8.5 g/dL (13.5-17.5)
[2024-11-01] VITALS (83 sets, daily range): BP systolic 78–190; BP diastolic 40–95
--- NOTE | 2024-11-01 05:42 | NUR ---
SHIFT SUMMARY: PT'S FAMILY VISITED @ 1930; UPDATED ON PT CONDITION AND PLAN OF CARE, THEY STATED THEY WOULD BE BACK HERE IN THE MORNING 11/01/24 TO SPEAK WITH THE PROVIDER. PT WAS RESTLESS AND AGITATED THROUGHOUT THE NIGHT; RECEIVED FENTANYL AND ATIVAN PUSHES, WITH LAST DOSES GIVEN @ 0100. PRECEDEX HAS BEEN @ 0.8 AND FENTANYL WAS INCREASED FROM 25- 75 MCG IN ORDER TO PROVIDE PT WITH ADEQUATE SEDATION, BEGAN TITRATING BACK DOWN TO 50 MCG @ 0345. MAP HAS BEEN STABLE THROUHOUT THE NIGHT >63. PT EXPERIENCED MILD FEVER AND WAS GIVEN PRN ACETAMINOPHEN WHICH PROVIDED RELIEF. VHP WAS STOPPED AT 0000 PER PROVIDERS ORDER IN PREPARATION FOR PLANNED SBT IN THE MORNING 11/01/24. LEFT ARM POWERGLIDE WAS REMOVED @ 0500 DUE TO INFILTRATION OF ZOSYN; COLD COMPRESS WAS APPLIED TO AID IN RELIEF. VENT SETTINGS AC/VC 20/500/5/55%
[2024-11-01 06:07] LABS: Albumin, Blood 1.9 g/dL (3.4-5.0); Anion Gap 14 mmol/L (3-11); Blood Urea Nitrogen 63 mg/dL (8-24); CO2, Blood 18 mmol/L (21-32); Calcium, Blood 9.5 mg/dL (8.5-10.1); Chloride, Blood 111 mmol/L (98-108); Creatinine, Blood 1.26 mg/dL (0.60-1.20); Glomerular Filtration Rate 63 (60-); Glucose, Blood 187 mg/dL (70-99); Phosphorus, Blood 6.3 mg/dL (2.5-4.9); Potassium, Blood 4.3 mmol/L (3.5-5.5); Sodium, Blood 139 mmol/L (136-145)
[2024-11-01 06:42] LABS: Hematocrit 18.9 % (37.0-53.0); Hemoglobin 6.4 g/dL (13.5-17.5); Mean Corpuscular HGB 31.1 pg (26.0-34.0); Mean Corpuscular HGB Conc 33.9 g/dL (31.5-36.5); Mean Corpuscular Volume 92 fL (80-100); NRBC ABSOLUTE 0.76 K/mm3 (0.00-0.02); NRBC Auto 7.9 /100 WBC (0.0-0.2); RDW Coefficient Variation 15.7 % (11.7-14.2); RDW Standard Deviation 52.5 fL (35.1-46.3); Red Blood Cell Count 2.06 M/mm3 (4.30-5.90)
[2024-11-01 06:47] LABS: Platelet Count 25 K/mm3 (150-400)
[2024-11-01 07:04] LABS: BAND PERCENT MAN 1 % (0-8); BASOPHILS ABSOLUTE MAN 0.19 K/mm3 (0.00-0.23); BASOPHILS PERCENT MAN 2 % (0-2); BLASTS PERCENT MAN 3 % (0-0); EOSINOPHILS PERCENT MAN 0 % (0-6); LYMPHOCYTES % ATYPICAL MANUAL 1 % (0-0); LYMPHOCYTES ABSOLUTE MAN 3.45 K/mm3 (0.84-5.20); LYMPHOCYTES PERCENT MAN 35 % (21-46); METAMYELOCYTE ABSOLUTE MAN 0.28 K/mm3 (0.00-0.00); METAMYELOCYTE PERCENT MAN 3 % (0-0); MONOCYTES ABSOLUTE MAN 2.11 K/mm3 (0.16-1.47); MONOCYTES PERCENT MAN 22 % (4-13); MYELOCYTE ABSOLUTE MAN 0.09 K/mm3 (0.00-0.00); MYELOCYTE PERCENT MAN 1 % (0-0); NEUTROPHILS ABSOLUTE MAN 3.16 K/mm3 (1.96-9.15); SEG NEUTROPHILS PERCENT MAN 32 % (41-73); TOTAL CELLS COUNTED 100
[2024-11-01] MEDS ORDERED: Albumin (Human) 25gm/100ml 100 ML IV ONE (07:05)
[2024-11-01] MEDS ORDERED: Sodium Bicarb 8.4% 1 MEQ/ML 50 ML Vial IV ONE (07:05)
[2024-11-01] MEDS ORDERED: Furosemide 10 MG / ML 2ML Vial IV ONE ×2 (07:50→21:05)
--- NOTE | 2024-11-01 13:47 | NUR ---
JOINT VISIT WITH DR. CABRERA FOR A GOALS OF CARE CONVERSATION WITH PT'S FAMILY. PROVIDER REVIEWED CURRENT MEDICAL CONDITIONS AND MULTIPULE COMORBIDITIES. EDUCATION PROVIDED ON WHAT A SEDATION VACATION IS AND HOW LIBERATION FROM VENT OCCURS. PT'S BROTHER PATRICK STATED HE BELIEVES PT WOULD WANT EVERYTHING DONE. "COLLEEN WOULD WANT TO WAKE UP AND TELL US SOMETHING." GOAL TODAY IS TO ATTEMPT TO WEAN OFF SEDATION AND THE VENT IN AN ATTEMPT FOR PT TO CLEAR ENOUGH TO MAKE WISHES KNOWN. FAMILY PRESENT: SISTER, HIRAM. ADA GAGE. SISTER, LYNDA. BROTHER, PATRICK AND A NIECE.
--- NOTE | 2024-11-01 15:41 | NUR ---
Fentanyl Waste: 50ml Fentanyl waste at this time. Holger GREENE as witness.
--- NOTE | 2024-11-01 16:06 | NUR ---
Extubation. Pt extubated at 1400 to 3L 02 via NC. Family at bedside during extubation. No acute events, pt tolerated extubation well. See RT charting for further details.
[2024-11-01 17:04] LABS: Hemoglobin 7.9 g/dL (13.5-17.5); Mean Corpuscular HGB Conc 34.3 g/dL (31.5-36.5); Mean Corpuscular Volume 88 fL (80-100); NRBC ABSOLUTE 1.15 K/mm3 (0.00-0.02); NRBC Auto 10.9 /100 WBC (0.0-0.2); RDW Coefficient Variation 17.4 % (11.7-14.2); RDW Standard Deviation 55.2 fL (35.1-46.3); Red Blood Cell Count 2.63 M/mm3 (4.30-5.90); White Blood Cell Count 10.59 K/mm3 (4.00-11.30)
[2024-11-01 17:09] LABS: Platelet Count 31 K/mm3 (150-400)
[2024-11-01 17:26] LABS: Albumin, Blood 2.2 g/dL (3.4-5.0); Anion Gap 10 mmol/L (3-11); Blood Urea Nitrogen 61 mg/dL (8-24); Bun/Creatinine Ratio 50.8 (12.0-20.0); CO2, Blood 26 mmol/L (21-32); Calcium, Blood 9.7 mg/dL (8.5-10.1); Chloride, Blood 111 mmol/L (98-108); Glomerular Filtration Rate 67 (60-); Glucose, Blood 174 mg/dL (70-99); Phosphorus, Blood 4.7 mg/dL (2.5-4.9); Potassium, Blood 3.5 mmol/L (3.5-5.5); Sodium, Blood 143 mmol/L (136-145)
[2024-11-01 17:29] LABS: BAND PERCENT MAN 5 % (0-8); BASOPHILS PERCENT MAN 0 % (0-2); BLASTS PERCENT MAN 12 % (0-0); EOSINOPHILS PERCENT MAN 0 % (0-6); LYMPHOCYTES ABSOLUTE MAN 2.01 K/mm3 (0.84-5.20); LYMPHOCYTES PERCENT MAN 19 % (21-46); METAMYELOCYTE ABSOLUTE MAN 0.42 K/mm3 (0.00-0.00); METAMYELOCYTE PERCENT MAN 4 % (0-0); MONOCYTES ABSOLUTE MAN 0.84 K/mm3 (0.16-1.47); MONOCYTES PERCENT MAN 8 % (4-13); MYELOCYTE ABSOLUTE MAN 0.52 K/mm3 (0.00-0.00); MYELOCYTE PERCENT MAN 5 % (0-0); OTHER CELL PERCENT MAN 1 % (0-0); SEG NEUTROPHILS PERCENT MAN 46 % (41-73); TOTAL CELLS COUNTED 100
--- NOTE | 2024-11-01 18:25 | NUR ---
Summary. Pt improved this shift, extuabated, currently on bipap. Family present much of the shift, updated. Pt remains confused but slowly seems to be responding more to verbal stimuli. See chart for further details.
[2024-11-01] MEDS ORDERED: propofoL 100 ML IV ONE (20:22)
[2024-11-01] MEDS ORDERED: propofoL 100 ML IV SCH (20:30)
--- NOTE | 2024-11-01 20:50 | NUR ---
ROCURONIUM DR. CABRERA AT BEDSIDE. REQUESTING 90MG ROCURONIUM AT THIS TIME. ROCURONIUM PULLED OUT OF RSI KIT AND GIVEN.
--- NOTE | 2024-11-01 21:21 | NUR ---
ASSUME CARE: BEDSIDE REPORT RECIEVED FROM JC PARIKH. PT SITTING IN BED ON BIPAP. PT TACHYPNEIC AND USING ACCESSORY MUSCLES TO BREATHE. SPO2 LOW 80s-90s ON BIPAP SETTINGS 10/5/40%, FIO2 INCREASED TO 100% FOR PT RECOVERY SPO2>90. SBP 160s-180s, MAP>65. MONITOR SHOWED SINUS TACH 140s-160s. PT DIAPHORETIC. THIS RN CALLED DR. CABRERA FOR UPDATE ON PT. DR. CABRERA DECIDED TO REINTUBATE THE PT. PT REINTUBATED AT 2011. 15 OF ETOMIDATE GIVEN AT 2010, COLOR CHANGE AT 2011, 7.5 ETT, 25 AT GUMS. OGT PLACED AND VERIFIED VIA CHEST XRAY. PT RASS -3, PROPOFOL GTT AT 30 MCG/KG/MIN, FENTANYL GTT AT 25 MCG/HR. WILL UPDATE NEEDED.
[2024-11-01 21:23] LABS: Base Excess Venous -5.3 mmol/L; PCO2 Venous 52.3 mmHg (38-42); pH Blood Venous 7.24 (7.34-7.37)
[2024-11-02] VITALS (90 sets, daily range): BP systolic 85–161; BP diastolic 36–92
[2024-11-02] MEDS ORDERED: Hydrogen Peroxide 1.5 % Solution MT SCH
[2024-11-02] MEDS ORDERED: Ampicillin Sod/Sulbactam Sod 3 GM in NS 100 ML IV SCH
[2024-11-02 03:32] LABS: Hematocrit 19.5 % (37.0-53.0); Hemoglobin 6.7 g/dL (13.5-17.5); Mean Corpuscular HGB Conc 34.4 g/dL (31.5-36.5); Mean Corpuscular Volume 87 fL (80-100); NRBC ABSOLUTE 0.64 K/mm3 (0.00-0.02); NRBC Auto 8.5 /100 WBC (0.0-0.2); RDW Coefficient Variation 18.3 % (11.7-14.2); Red Blood Cell Count 2.23 M/mm3 (4.30-5.90); White Blood Cell Count 7.49 K/mm3 (4.00-11.30)
[2024-11-02 03:44] LABS: Platelet Count 21 K/mm3 (150-400)
[2024-11-02 04:30] LABS: Bun/Creatinine Ratio 51.1 (12.0-20.0); Calcium, Blood 9.8 mg/dL (8.5-10.1); Creatinine, Blood 1.39 mg/dL (0.60-1.20); Potassium, Blood 3.8 mmol/L (3.5-5.5)
[2024-11-02 04:46] LABS: BAND PERCENT MAN 4 % (0-8); BASOPHILS PERCENT MAN 0 % (0-2); BLASTS PERCENT MAN 5 % (0-0); EOSINOPHILS PERCENT MAN 0 % (0-6); LYMPHOCYTES ABSOLUTE MAN 2.62 K/mm3 (0.84-5.20); LYMPHOCYTES PERCENT MAN 35 % (21-46); METAMYELOCYTE ABSOLUTE MAN 0.07 K/mm3 (0.00-0.00); METAMYELOCYTE PERCENT MAN 1 % (0-0); MONOCYTES ABSOLUTE MAN 0.67 K/mm3 (0.16-1.47); MONOCYTES PERCENT MAN 9 % (4-13); MYELOCYTE ABSOLUTE MAN 0.44 K/mm3 (0.00-0.00); MYELOCYTE PERCENT MAN 6 % (0-0); NEUTROPHILS ABSOLUTE MAN 3.29 K/mm3 (1.96-9.15); SEG NEUTROPHILS PERCENT MAN 40 % (41-73); TOTAL CELLS COUNTED 100
--- NOTE | 2024-11-02 05:46 | NUR ---
SHIFT SUMMARY: PT INTUBATED AND SEDATED, RASS -1 TO +2, PT THRASHES HEAD BACK AND FORTH AT TIMES, PROPOFOL GTT AT 50 MCG/KG/MIN. FENTANYL GTT AT 75 MCG/HR. SBP 110s, MAP>65, LEVOPHED GTT AT 3 MCG/MIN. MONITOR SHOWS SINUS RYTHM RATE 60s-70s. SPO2>95% ON VENT, SEE RT NOTES FOR SETTINGS. OGT PATENT, CLAMPED. PUREWICK IN PLACE. PT STRAIGHT CATH X1 LAST NIGHT WITH 600 ML DARK YELLOW OUTPUT. WILL REPORT TO ONCOMING RN.
[2024-11-02] MEDS ORDERED: Cetylpyridinium Chloride 1 EA MISC MT SCH (08:00)
--- NOTE | 2024-11-02 19:28 | NUR ---
END OF SHIFT SUMMARY PT CONT TO BE SEDATED AND INTUBATED T/O SHIFT. FAMILY CHANGED PT CODE STATUS TO DNR THIS SHIFT. HE IS SEDATED WITH PROPOFOL INFUSING AT 55MCG/KG/MIN AND FENTANYL INFUSING AT 75MCG/HR; RASS -2. VENT SETTINGS AC/VC 24/450/10/50%. AFEBRILE. HR 60-70'S. SBP 100-120'S WITH MAP >65; LEVOPHED PLACED ON SB AT 1345. OG IN PLACE AND CLAMPED. BLADDER SCAN COMPLETED Q4HR; AT 1600 PLAN TO STRAIGHT CATH AND DR CABRERA WAS AT BEDSIDE AND INSTRUCTED TO PLACE SHOEMAKER INSTEAD. ONE UNIT PRBC INFUSED THIS SHIFT. BILATERAL POWERGLIDES PATENT WITH DRESSINGS C/D/I. REPORT GIVEN TO PM RN.
--- NOTE | 2024-11-02 21:05 | NUR ---
ASSUMPTION OF CARE: ASSUMED CARE OF PT AT 1915. PT INTUBATED AND SEDATED ON 55 MCG/KG/MIN OF PROPOFOL AND 75 MCG/HR OF FENTANYL. PT NOT WAKING UP OR FOLLOWING COMMANDS. RESPONDS TO PAINFUL STIMULI. SHAKES HEAD AGAINST VENT AND ATTEMPTS TO PULL OUT OF THE RESTRAINTS. PUPILS EQUAL AND REACTIVE. BRAKE COUPLER ROAD FREIGHT IN PLACE, SR WITH HR 70'S. SBP 120-130'S. MAP >65. VENT SETTINGS AC/VC 24/450/10.0/45%. SPO2 >92%. LUNGS CLEAR. C/G/S INTACT. SHOEMAKER PATENT AND DRAINING TO GRAVITY. NO BM YET. PG TO CHASE/MARISA BOTH PATENT AND INFUSING. BED LOW AND LOCKED.
[2024-11-03] VITALS (24 sets, daily range): BP systolic 119–154; BP diastolic 39–92
[2024-11-03 04:02] LABS: Hematocrit 21.8 % (37.0-53.0); Hemoglobin 7.8 g/dL (13.5-17.5); Mean Corpuscular HGB Conc 35.8 g/dL (31.5-36.5); Mean Corpuscular Volume 87 fL (80-100); NRBC Auto 12.9 /100 WBC (0.0-0.2); RDW Coefficient Variation 17.4 % (11.7-14.2); RDW Standard Deviation 54.9 fL (35.1-46.3); Red Blood Cell Count 2.52 M/mm3 (4.30-5.90); White Blood Cell Count 6.19 K/mm3 (4.00-11.30)
[2024-11-03 04:08] LABS: Platelet Count 17 K/mm3 (150-400)
[2024-11-03 04:20] LABS: Albumin, Blood 1.9 g/dL (3.4-5.0); Albumin/Globulin Ratio 0.6 (0.8-1.8); Bilirubin, Total 3.1 mg/dL (0.1-1.0); Bun/Creatinine Ratio 58.4 (12.0-20.0); Calcium, Blood 9.7 mg/dL (8.5-10.1); Creatinine, Blood 1.13 mg/dL (0.60-1.20); Potassium, Blood 3.3 mmol/L (3.5-5.5); Total Protein, Blood 4.9 g/dL (6.4-8.2)
[2024-11-03] MEDS ORDERED: Potassium Chloride 40 MEQ in NS 250 ML IV ONE (04:40)
[2024-11-03 05:07] LABS: BAND PERCENT MAN 8 % (0-8); BASOPHILS PERCENT MAN 0 % (0-2); BLASTS PERCENT MAN 5 % (0-0); EOSINOPHILS PERCENT MAN 0 % (0-6); LYMPHOCYTES ABSOLUTE MAN 3.96 K/mm3 (0.84-5.20); LYMPHOCYTES PERCENT MAN 64 % (21-46); METAMYELOCYTE ABSOLUTE MAN 0.06 K/mm3 (0.00-0.00); METAMYELOCYTE PERCENT MAN 1 % (0-0); MONOCYTES ABSOLUTE MAN 0.43 K/mm3 (0.16-1.47); MONOCYTES PERCENT MAN 7 % (4-13); MYELOCYTE ABSOLUTE MAN 0.06 K/mm3 (0.00-0.00); MYELOCYTE PERCENT MAN 1 % (0-0); NEUTROPHILS ABSOLUTE MAN 1.36 K/mm3 (1.96-9.15); SEG NEUTROPHILS PERCENT MAN 14 % (41-73); TOTAL CELLS COUNTED 100
--- NOTE | 2024-11-03 05:57 | NUR ---
SHIFT SUMM: VENT SETTINGS HAVE REMAINED UNCHANGED AND SPO2 REMAINED IN MID TO HIGH 90'S.HR REMAINED IN 60-70'S W/SBP IN 120'S-140'S. PT HAD EPISODE OF TACHYCARDIA IN THE 170'S DURING TURN, DID NOT SUSTAIN. PT CONTINUES TO HAVE RESPONSE TO PAINFUL STIMULI BUT UNABLE TO FOLLOW COMMANDS. OPENS EYES AT TIMES, DOES NOT TRACK. PUPILS EQUAL AND REACTIVE. PROPOFOL AT 55 MCG/KG/MIN W/FENTANYL AT 75 MCG/HR. PT HAS BEEN GIVEN ATIVAN PRN 2MG IV NEEDED FOR RESTLESSNESS/ AGGITATION. PT FREQUENTLY THRASHING HEAD BACK AND FORTH AND ATTEMPTING TO REACH FOR TUBE. NOT REDIRECTABLE. (SEE EMAR). SHOEMAKER REMAINS PATENT AND DRAINING TO GRAVITY. PT HAS NOT HAD A BM THIS SHIFT. OG IS CURRENTLY CLAMPED. MARISA AND CHASE PG REMAIN PATENT.PT RECIEVED A BED BATH THIS SHIFT AND CATH CARE COMPLETED. OPEN SORE TO COCCYX, CLEANED AND LEFT OPEN TO AIR. SCROTUM HAS OPEN SORE FROM PREVIOUS SHIFT, PLACED PETROLEUM GAUZE OVER SITE, WITH FAM CLOTH IN SCROTAL FOLDS. EDEMA TO BLE, BUE AND SCROTUM NOTED. BED LOW AND LOCKED.
[2024-11-03] MEDS ORDERED: Arginine/Glutamine/Calcium Hmb 1 Packet PT SCH (09:35)
[2024-11-03] MEDS ORDERED: Ipratropium/Albuterol SulF 2.5-0.5MG/3 ML Amp INH PRN (10:05)
--- NOTE | 2024-11-03 10:25 | NUR ---
CARE ASSUMPTION DURING BEDSIDE REPORT WITH RN WILLA AND THIRD OFFICER MARY, PT WAS RESTING IN BED AND APPEARED TO BE IN NO IMMEDIATE DISTRESS. PT POSITIONED ON HIS RIGHT SIDE WITH A PILLOW UNDER THE RIGHT ARM. PT HAD PROPOFOL RUNNING AT 55MCG/KG/MIN AND FENTANYL RUNNING AT 75MCG/HR. DURING 0800 ASSESSMENT PT WAS REPOSITIONED TO LEFT SIDE, MADE FACIAL GRIMACES DURING ORAL CARE, AND WOULD PERIODICALLY WIGGLE TOES AND MOVE HANDS IN RESONSE TO PAINFUL STIMULI. SEDATION DECREASED AND PT APPEARED SLIGHTLY AGITATED MOVING HEAD BACK AND FORTH. PER DOCTOR ELMIRA, NO CHANGES TO SEDATION AT THIS TIME.
--- NOTE | 2024-11-03 12:09 | NUR ---
FAMILY CONTACT THIS RN CONTACTING PT'S SISTER HIRAM A ANOTHER PERSON "JOEL" IS REQUESTING TO SEE THE PT. HIRAM TELLING THIS RN IT IS OK FOR JOEL TO VISIT DESPITE PREVIOUSLY SAYING NO.
[2024-11-03 12:19] LABS: Bun/Creatinine Ratio 59.1 (12.0-20.0); Calcium, Blood 9.3 mg/dL (8.5-10.1); Creatinine, Blood 1.1 mg/dL (0.60-1.20); Potassium, Blood 3.7 mmol/L (3.5-5.5)
--- NOTE | 2024-11-03 12:23 | NUR ---
PALLIATIVE CARE NOTE: RECEIVED PHONE CALL FROM ADA (MERARI), HE INFORMED THIS RN SISTER LYNDA AND BROTHER PATRICK OF PATIENT ARE NOT COMING IN THIS MORNING AND THEY ACTUALLY LEFT TOWN. EXPLAINED TO ADA PRIMARY RN HAD THOUGHT LYNDA WAS COMING IN THIS MORNING. PLAN: REACH OUT TO LYNDA AND/OR PATRICK.
--- NOTE | 2024-11-03 12:49 | NUR ---
PALLIATIVE CARE NOTE: SPOKE TO SISTER LYNDA AT 1245 TODAY. JC CALL WAS PRESENT FOR CONVERSATION. LYNDA STATED SHE WAS OKAY WITH HER BROTHER COLLEEN GOING ON COMFORT CARE. LYNDA VERBALLY STATED SHE WAS OK WITH COLLEEN COMING OFF THE VENTILATOR TO GO ON COMFORT CARE. SPOKE TO BROTHER PATRICK AT 1250 ON THE PHONE. PATRICK AGREES TO PLACE COLLEEN ON COMFORT CARE AND LIBERATE COLLEEN FROM THE VENTILATOR. 1300 SPOKE TO SISTER HIRAM AND ADA ON THE PHONE. EXPLAINED TO THEM LYNDA AND PATRICK ARE IN AGREEMENT TO LIBERATE COLLEEN FROM THE VENTILATOR AND PLACE ON COMFORT CARE. OFFERED THEM THE OPTION TO BE PRESENT. HIRAM STATED SHE WANTS TO BE PRESENT. SHE WILL BE HERE AROUND 3 PM. UPDATED PRIMARY RN, SPIRITUAL CARE AND DR. OCAMPO WITH POC.
[2024-11-03] MEDS ORDERED: Morphine Sulfate 10 MG/ML 1MLSYR IV PRN (14:50)
[2024-11-03] MEDS ORDERED: Scopolamine Hydrobromide Patch TOP PRN (14:55)
[2024-11-03] MEDS ORDERED: Acetaminophen 650 MG Supp PR PRN (14:55)
[2024-11-03] MEDS ORDERED: Morphine Sulfate 20 MG/1ML 1 ML Oral Syringe SL PRN (14:55)
[2024-11-03] MEDS ORDERED: Ondansetron HCl 2 MG / ML 2ML Vial IV PRN (14:55)
[2024-11-03] MEDS ORDERED: Atropine Sulfate 1% Opth Soln 2ML BTL SL PRN (14:55)
[2024-11-03] MEDS ORDERED: LORazepam 2 MG/ML 1ML Injection IV PRN (15:00)
--- NOTE | 2024-11-03 15:57 | NUR ---
PALLIATIVE EXTUBATION PT'S FAMILY ARRIVING TO HOSPITAL AND DISCUSSED W PALLIATIVE CARE TEAM THAT THEY WERE READY TO LIBERATE THE PT FROM THE VENT AND GO ON COMFORT CARE. DR. OCAMPO IN ICU PLACING COMFORT CARE ORDERS. PT EXTUBATED W HIS BROTHER IN [place] AT BEDSIDE ALONG WITH THE PALLIATIVE CARE TEAM. PT INITIALLY IN RESP DISTRESS FOLLOWING EXTUBATION BUT WAS GIVEN COMFORT CARE MEDICATIONS AND APPEARED MUCH MORE COMFORTABLE UNTIL HE . PT EXPIRING W FAMILY AND PALLIATIVE CARE TEAM AT BEDSIDE. BELONGINGS SENT HOME W BROTHER IN [place].
--- NOTE | 2024-11-03 16:11 | NUR ---
PALLIATIVE CARE VISIT: MERARI CABALLERO PRESENT FOR COLLEEN DURING LIBERATION OF VENT. PT EXTUBATED AT 1515 AND TOD WAS AT 1548. PROVIDED EMOTIONAL AND MORAL SUPPORT TO ADA. ADA APPEARED TO BE GRIEVING APPROPRIATELY. [facility] WAS CHOSEN FOR HOME. SHEILA WITH SPIRITUAL CARE ALSO PRESENT FOR SUPPORT. PT APPEARED TO PASS PEACEFULLY. PT BELONGINGS SENT HOME WITH ADA. OFFERED TO CALL [employer] BUT ADA SAID HE WOULD CALL THEM.
--- NOTE | 2024-11-03 16:37 | NUR ---
I am called to ICU when the family of the patient arrive. I find that, Julio, the patient's Brother in Law is the only family coming. I sit with Julio alone and learn about the patient's medical history, the family unit complications and the the plan to extubate soon. I am present throught the extubation, the TOD and the grief of the loss. Palliative RN Sathish is also present throughout the process and brings her excellence, care and support to Julio. Julio is articulate, grieves appropriately and helps make the decision to have [facility] handle the arrangements. I reinforced helpful attitudes and perspectives, normalized the tensions and feelings with the family and provided prayer, scripture reading, and grief support. Julio voiced his appreciation as Nancy and I walked him to the door with the patient's belongings.
== END 2024-11-03 16:00 | DRG 870 ==
LOC: ER 00:30 → ICUE 02:43
PROVIDERS: Emergency Medicine; Family Medicine; Hospitalist; Internal Medicine; Internal Medicine Critical Care Medicine; Student in an Organized Health Care Education/Training Program; ADMIT Internal Medicine
PROC: 30233N1 Transfusion of Nonautologous Red Blood Cells into Peripheral Vein, Percutaneous Approach (ICD-10-PCS; 2024-10-17)
PROC: 3E03329 Introduction of Other Anti-infective into Peripheral Vein, Percutaneous Approach (ICD-10-PCS; 2024-10-17)
PROC: 0T9B70Z Drainage of Bladder with Drainage Device, Via Natural or Artificial Opening (ICD-10-PCS; 2024-10-17)
PROC: 3E033XZ Introduction of Vasopressor into Peripheral Vein, Percutaneous Approach (ICD-10-PCS; 2024-10-17)
PROC: 5A1945Z Respiratory Ventilation, 24-96 Consecutive Hours (ICD-10-PCS; 2024-10-17)
PROC: 5A09357 Assistance with Respiratory Ventilation, Less than 24 Consecutive Hours, Continuous Positive Airway Pressure (ICD-10-PCS; 2024-10-18)
PROC: HZ2ZZZZ Detoxification Services for Substance Abuse Treatment (ICD-10-PCS; 2024-10-18)
PROC: 4A133R1 Monitoring of Arterial Saturation, Peripheral, Percutaneous Approach (ICD-10-PCS; 2024-10-21)
PROC: 5A1955Z Respiratory Ventilation, Greater than 96 Consecutive Hours (ICD-10-PCS; principal; 2024-10-24)
PROC: 0BH17EZ Insertion of Endotracheal Airway into Trachea, Via Natural or Artificial Opening (ICD-10-PCS; 2024-10-24)
PROC: 5A2204Z Restoration of Cardiac Rhythm, Single (ICD-10-PCS; 2024-10-24)
PROC: 02HV33Z Insertion of Infusion Device into Superior Vena Cava, Percutaneous Approach (ICD-10-PCS; 2024-10-25)
PROC: 0BH17EZ Insertion of Endotracheal Airway into Trachea, Via Natural or Artificial Opening (ICD-10-PCS; 2024-11-01)
PROC: 5A1945Z Respiratory Ventilation, 24-96 Consecutive Hours (ICD-10-PCS; 2024-11-01)
DX: A41.9 Sepsis, unspecified organism (principal); G92.8 Other toxic encephalopathy; J69.0 Pneumonitis due to inhalation of food and vomit; J96.01 Acute respiratory failure with hypoxia; R65.21 Severe sepsis with septic shock; J96.02 Acute respiratory failure with hypercapnia; J44.1 Chronic obstructive pulmonary disease with (acute) exacerbation; Z51.5 Encounter for palliative care; Z66 Do not resuscitate; E87.1 Hypo-osmolality and hyponatremia; E87.21 Acute metabolic acidosis; D61.818 Other pancytopenia; C92.00 Acute myeloblastic leukemia, not having achieved remission; I47.20 Ventricular tachycardia, unspecified; D84.9 Immunodeficiency, unspecified; I67.89 Other cerebrovascular disease; F10.239 Alcohol dependence with withdrawal, unspecified; N17.9 Acute kidney failure, unspecified; E11.65 Type 2 diabetes mellitus with hyperglycemia; I10 Essential (primary) hypertension; E03.9 Hypothyroidism, unspecified; E86.0 Dehydration; E11.51 Type 2 diabetes mellitus with diabetic peripheral angiopathy without gangrene; R16.1 Splenomegaly, not elsewhere classified; L89.302 Pressure ulcer of unspecified buttock, stage 2; I46.9 Cardiac arrest, cause unspecified; I49.01 Ventricular fibrillation; R56.9 Unspecified convulsions; R50.81 Fever presenting with conditions classified elsewhere; Z79.890 Hormone replacement therapy; Z79.82 Long term (current) use of aspirin; Z95.820 Peripheral vascular angioplasty status with implants and grafts; Z79.85 Long-term (current) use of injectable non-insulin antidiabetic drugs; Z79.02 Long term (current) use of antithrombotics/antiplatelets; Z78.1 Physical restraint status
CPT/HCPCS: 0241U; 31500; 31720; 36415; 36430; 36556; 36600; 51701; 51702; 70450; 71045; 71260; 74177; 80047; 80048; 80053; 80069; 80202; 81001; 82803; 82947; 83605; 83735; 83880; 84100; 84145; 84146; 84439; 84443; 84481; 84484; 85014; 85018; 85025; 85027; 85610; 85730; 86850; 86900; 86901; 86923; 87040; 87070; 87205; 93005; 93010; 93306; 93308; 93321; 94002; 94003; 94640; 94660; 94664; 94760; 94762; 96361; 96374; 99291-25; A9270; C1751; J0295; J0692; J1815; J1940; J1953; J2060; J2250; J2270; J2470; J2543; J2704; J2919; J3010; J3370; J3411; J3475; J3480; J7030; J7040; J7050; J7060; J7120; P9016; Q9967